=== PATIENT | male | born 1950 | race American Indian/Alaskan Native ===

== ENCOUNTER 2020-01-02 06:03 | Outpatient (REF) | payer MEDICARE, OTHER, SELFPAY ==
[2020-01-02 06:51] LABS: MANUAL DIFF FLAG NO
[2020-01-02 06:52] LABS: Basophils Absolute Auto 0.1 X10*3/uL (0.0-0.2); Basophils Percent Auto 0.7 % (0-2); Eosinophils Absolute Auto 0.3 X10*3/uL (0.0-0.4); Eosinophils Percent Auto 2.9 % (0-4); Hematocrit 46.6 % (42-52); Hemoglobin 15.4 g/dl (14.0-18.0); Imm Gran Abs Auto 0.04 X10*3/uL (0.00-0.03); Imm Gran Pct Auto 0.4 % (0.0-0.4); Lymphocytes Absolute Auto 3.1 X10*3/uL (1.2-4.9); Lymphocytes Percent Auto 28.7 % (20-40); Mean Corpuscular Hemoglobin 30.1 pg (27.0-33.0); Mean Corpuscular Volume 91.2 fL (80-98); Mean Platelet Volume 9.9 fL (9.4-12.4); Monocytes Percent Auto 9.1 % (2-11); Neutrophils Absolute Auto 6.2 X10*3/uL (2.0-8.3); Neutrophils Percent Auto 58.2 % (45-73); Platelet Count 331 X10*3/uL (160-400); Red Blood Count 5.11 X10*6/uL (4.60-5.80); White Blood Count 10.6 X10*3/uL (4.8-10.8)
[2020-01-02 06:59] LABS: Estimated Average Glucose 226 mg/dL; Hemoglobin A1c % 9.5 %
[2020-01-02 07:20] LABS: Alanine Aminotransferase 22 U/L (0-40); Albumin Level 4.6 g/dL (3.5-5.0); Alkaline Phosphatase 97 U/L (39-117); Anion Gap 15 (12-20); Aspartate Amino Transferase 20 U/L (5-37); Bilirubin Total 1.6 mg/dL (0.0-1.0); Blood Urea Nitrogen 13 mg/dL (9-16); Calcium 9.8 mg/dL (8.4-10.2); Carbon Dioxide 30 mmol/L (22-29); Chloride 99 mmol/L (96-108); Cholesterol 160 mg/dL; Estimated Glomerular Filt Rate 58; Glucose Fasting 312 mg/dL (60-99); HDL Cholesterol 32 mg/dL; LDL Cholesterol Calculated 66 mg/dl; Sodium 139 mmol/L (135-145); Total Protein 7.5 g/dL (6.5-8.0); Triglycerides 313 mg/dL
[2020-01-02 07:42] LABS: Prostate Specific Antigen 2.05 ng/mL (<0.05-4.0)
[2020-01-02 08:05] LABS: Glucose Urine UA 250 MG/DL (NEG); Leukocyte Esterase Urine NEG (NEG); Nitrite Urine NEG (NEG); Specific Gravity - Urine >= 1.030 (1.005-1.025); Urine Blood NEG (NEG); Urine Ketones NEG (NEG); Urine Protein NEG (NEG-TRACE)
[2020-01-02 08:11] LABS: Appearance Urine CLEAR; Color Urine YELLOW
[2020-01-02 08:26] LABS: Creatinine Urine 235.72 mg/dL; Microalbum/Creatinine Ratio Ur 21.2 ug/mg cr
== END 2020-01-02 06:04 | disposition home or self-care (01) ==
LOC: HO.LAB 06:03
PROVIDERS: Visit Provider Internal Medicine
DX: I25.10 Atherosclerotic heart disease of native coronary artery without angina pectoris (principal); E78.00 Pure hypercholesterolemia, unspecified; I10 Essential (primary) hypertension; E11.9 Type 2 diabetes mellitus without complications; N40.0 Benign prostatic hyperplasia without lower urinary tract symptoms
CPT/HCPCS: 36415; 80053; 80061; 81003; 82043; 83036; 84153; 85025

== ENCOUNTER → 2020-01-22 15:40 | Outpatient (BNVA) | payer MEDICARE, OTHER, SELFPAY | PROVIDERS: PCP Internal Medicine; Visit Provider Surgery Vascular Surgery | DX: I73.9 Peripheral vascular disease, unspecified (principal); Z98.62 Peripheral vascular angioplasty status | CPT/HCPCS: 99212 ==

== ENCOUNTER 2020-01-22 16:09 | Emergency (ER) | payer MEDICARE, OTHER, SELFPAY ==
[2020-01-22 16:37] VITALS: BP 183/87; PULSE 91; RESP 28; TEMP 37; O2SAT 93; BMI 31.7
--- NOTE | 2020-01-22 17:03 | ECG_ITS ---
Test Reason : SOB Blood Pressure : / mmHG Vent. Rate : 087 BPM Atrial Rate : 087 BPM P-R Int : 142 ms QRS Dur : 094 ms QT Int : 388 ms P-R-T Axes : 078 069 064 degrees QTc Int : 466 ms Normal sinus rhythm Incomplete right bundle branch block Borderline ECG When compared with ECG of 19-FEB-2006 07:55, Heart rate has increased Referred By: Lee Cedillo Electronically Signed By:NATO CASTILLO MD
--- NOTE | 2020-01-22 17:03 | CT_ITS ---
EXAMINATION: CT ANGIOGRAM OF THE CHEST WITH AND WITHOUT CONTRAST (CT PULMONARY ANGIOGRAM FOR PE) CLINICAL INFORMATION: Shortness of breath COMPARISON: CT scan of the chest 10/11/2019, 09/30/2018 TECHNIQUE: Prior to contrast administration, noncontrast localization images were obtained. Subsequently, multidetector volumetric imaging was performed from the thoracic inlet to below the diaphragms following the administration of 80 mL Omnipaque 350 intravenous contrast. No contrast reaction reported Sagittal, coronal, and MIP oblique sagittal reformatted images were obtained on the CT workstation, uploaded to PACS, and reviewed. This CT examination was performed using dose optimization techniques as appropriate, variously including the following: *Automated exposure control *Adjustment of mA and/or kV according to patient size (this includes techniques or standardized protocols for targeted exams where dose is matched to indication/reason for exam; i.e. extremities or head) *Use of iterative reconstruction technique Total exam dose-length product 420 mGy-cm FINDINGS: QUALITY OF STUDY/CONTRAST BOLUS: Satisfactory. PULMONARY ARTERIES: No central or segmental pulmonary emboli. THORACIC AORTA: No aneurysm or dissection. LUNG: Mild bronchial wall thickening. There is some focal tree-in-bud/groundglass nodularity within the central left upper lobe, suggesting a focal infectious/inflammatory process. No dense consolidation. There are a few scattered micronodules in both lungs which have not significant changed. A 6 mm nodule along the right minor fissure is unchanged, this may represent an intrafissural lymph node. PLEURA: No pleural effusion or pneumothorax. MEDIASTINUM: Normal heart size. No pericardial effusion. Coronary artery calcifications. There are scattered subcentimeter mediastinal lymph nodes. No evidence of septal bowing or right heart strain. CHEST WALL/AXILLA: No axillary or internal mammary lymphadenopathy. OSSEOUS STRUCTURES: No acute or suspicious osseous abnormality. UPPER ABDOMEN: There is a 1.3 cm right adrenal nodule. This is unchanged from the CT scan from 09/30/2018, at that time the noncontrast enhanced exam showed 0 Hounsfield units, suggesting a adrenal adenoma. Small hiatal hernia.. No reflux of contrast into the hepatic veins to suggest elevated right heart pressures. CT/CT angio chest PE protocol IMPRESSION: 1. No pulmonary embolus. 2. Mild bronchial wall thickening suggest underlying small airways disease. Some focal tree-in-bud nodularity in the left upper lobe suggest infectious/inflammatory process. No dense consolidation. 3. Scattered micronodules in the lungs are stable. 4. Coronary artery gives locations. 5. Small hiatal hernia. 6. A 1.3 cm right adrenal nodule most likely representing adrenal adenoma based on CT scan from 09/30/2018. VTE: negative
--- NOTE | 2020-01-22 17:03 | ED_ITS ---
HPI - SOB/Dyspnea General Chief Complaint: Dyspnea Stated Complaint: Difficulty breathing Time Seen by Provider: 01/22/20 17:02 Source: patient Mode of arrival: ambulatory Limitations: no limitations History of Present Illness HPI Narrative: patient has history of bronchitis in the past ex-smoker with significant peripheral vascular disease complaining of shortness of breath and wheezing for last 2 days no fever no chills no other family member sick at home MD elicited complaint: shortness of breath Pertinent past history: COPD Severity: moderate Exacerbating factors: coughing Related Data Home Medications Medication Instructions Recorded Confirmed acetaminophen 650 mg 650 mg PO Q8H 01/22/20 tablet,extended release albuterol sulfate 90 mcg/actuation 2 puff INHALATION 6XD 01/22/20 aerosol inhaler aspirin 81 mg tablet,delayed 81 mg PO DAILY 01/22/20 release carvedilol 6.25 mg tablet 6.25 mg PO BID 01/22/20 docusate sodium 100 mg capsule 100 mg PO DAILY 01/22/20 ferrous sulfate 325 mg (65 mg 325 mg PO DAILY 01/22/20 iron) tablet fluticasone propionate 110 1 puff INHALATION BID 01/22/20 mcg/actuation HFA aerosol inhaler gabapentin 300 mg capsule 300 mg PO BID 01/22/20 glipizide 5 mg tablet 5 mg PO DAILY 01/22/20 lisinopril 5 mg tablet 5 mg PO DAILY 01/22/20 metformin 500 mg tablet 500 mg PO DAILY 01/22/20 simvastatin 20 mg/5 mL (4 mg/mL) 20 mg PO DAILY 01/22/20 oral suspension Previous Rx's Medication Instructions Recorded albuterol sulfate 2 puff INHALATION QID PRN #18 g 01/22/20 azithromycin [Zithromax] 500 mg PO DAILY 3 Days #3 tab 01/22/20 doxycycline hyclate 100 mg PO BID #20 cap 01/22/20 prednisone 40 mg PO DAILY #10 tab 01/22/20 Allergies Allergy/AdvReac Type Severity Reaction Status Date / Time morphine [MORPHINE] AdvReac Intermediate VOMITING Verified 01/22/20 16:37 Review of Systems Review of Systems: REVIEW OF SYSTEMS: Pertinent positives and negatives are stated above in the history. GEN: no fevers, chills, fatigue HEENT: no nasal congestion, sore throat, ear pain NEURO: no headache, dizziness, focal weakness PULM: per HPI CV: no chest pain, palpitations, LE edema ABD: no abdominal pain, nausea, vomiting, diarrhea : no dysuria, urgency, frequency SKIN: no rash ROS otherwise negative x 10 PMFSH Past Medical History Medical History DM2 (diabetes mellitus, type 2) HTN (hypertension) Hyperlipidemia PAD (peripheral artery disease) Tubular adenoma of colon Surgical History History of esophagogastroduodenoscopy (EGD) History of femoral angiogram Hx of cholecystectomy Hx of colonoscopy Hx of tonsillectomy Hx of vasectomy Family History Family History Father No problems noted. Mother No problems noted. Social History Social History Smoking Status: Former smoker Smoked in Last 30 Days: No Use of substances other than those prescribed or required for medical reasons: No Advance Directives: No Advance Directives Information Provided: Yes Physical Exam Vital Signs: Vital Signs: Last Vital Signs Temp 98.0 F 01/22/20 19:24 Pulse 85 01/22/20 19:24 Resp 16 01/22/20 19:24 BP 151/71 H 01/22/20 19:24 Pulse Ox 96 01/22/20 19:24 Body Mass Index 31.7 Const: General: cooperative, healthy appearing, comfortable, no acute distress and well developed Nutritional Appearance: average body habitus Orientation/consciousness: oriented to person, oriented to place and oriented to time Limitations: no limitations HENMT: Head: Yes normal to inspection Ears: hearing grossly normal bilaterally General nose exam: Normal external nose present Eyes: General: appearance normal, both eyes and all related structures Resp: Effort & Inspection: normal respiratory effort, audible wheezes and Actively coughing Auscultation: no crackles, no rales, rhonchi, wheezes and lung sounds not diminished Percussion: percussion normal Cardio: Jugular venous distension: no JVD Palpation: normal PMI Rate: regular rate Rhythm: regular rhythm Heart sounds: S1 normal heart sound present, S2 normal heart sound present and no murmurs GI: Inspection: Yes normal to inspection Palpation (GI): Soft to palpation, Firmness to palpation present (GI), nontender and no guarding : General: Yes no CVA tenderness Back/Spine/Pelvis: Back: no CVA tenderness Thoracic/Lumbar Spine: thoracic and lumbar spine normal to inspection Neuro: General: oriented to person, oriented to place and oriented to time MDM - SOB/Dyspnea MDM Narrative Medical decision making narrative: patient history of ex smoker for 56 years with recurrent bronchitis came with shortness of breath and cough saturating 93% at room air feels better after nebulizing treatments saturating 98% room air at this time CT chest was done which was negative for PE or any infiltrate Differential Diagnosis Differential diagnosis: Likely acute exacerbation of chronic obstructive airways disease, congestive heart failure, pneumonia, pulmonary embolism and pleural effusion Medical Records Attestation: I reviewed the patient's medical records. Lab Data Attestation: I reviewed the patient's lab results. Result diagrams: 01/22/20 17:28 01/22/20 17:28 Labs: Lab Results 01/22/20 01/22/20 01/22/20 Range/Units 17:28 17:28 17:28 WBC 8.5 (4.8-10.8) X10*3/uL RBC 4.66 (4.60-5.80) X10*6/uL Hgb 14.0 (14.0-18.0) g/dl Hct 42.1 (42-52) % MCV 90.3 (80-98) fL MCH 30.0 (27.0-33.0) pg MCHC 33.3 (31.0-36.0) g/dl RDW 13.2 (11.0-16.0) % Plt Count 264 (160-400) X10*3/uL MPV 9.7 (9.4-12.4) fL Immature Gran % (Auto) 0.2 (0.0-0.4) % Neut % (Auto) 51.6 (45-73) % Lymph % (Auto) 31.8 (20-40) % [place] % (Auto) 10.6 (2-11) % Eos % (Auto) 5.1 H (0-4) % Baso % (Auto) 0.7 (0-2) % Lymph # (Auto) 2.7 (1.2-4.9) X10*3/uL [place] # (Auto) 0.9 (0.1-1.2) X10*3/uL Eos # (Auto) 0.4 (0.0-0.4) X10*3/uL Baso # (Auto) 0.1 (0.0-0.2) X10*3/uL Abs Immat Gran (auto) 0.02 (0.00-0.03) X10*3/uL Absolute Neuts (auto) 4.4 (2.0-8.3) X10*3/uL Absolute Nucleated RBC 0.000 (0.0-0.012) X10*3/uL Nucleated RBC % (auto) 0.0 (0.0-0.2) /100WBC PT (10.8-13.0) SEC INR (0.9-1.1) APTT (24.1-38.0) SEC Sodium 137 (135-145) mmol/L Potassium 4.9 (3.3-5.1) mmol/l Chloride 98 (96-108) mmol/L Carbon Dioxide 30 H (22-29) mmol/L Anion Gap 14 (12-20) BUN 9 (9-16) mg/dL Creatinine 0.98 (0.5-1.4) mg/dL Estim Creat Clear Calc 84.4 Estimated GFR > 60 Random Glucose 237 H (60-115) mg/dL Calcium 9.3 (8.4-10.2) mg/dL Troponin I High Sens < 3.5 (<3.5-35.0) ng/L B-Natriuretic Peptide 26 (<100) pg/mL Coronavirus (PCR) (Negative) Influenza Type A (PCR) (Negative) Influenza Type B (PCR) (Negative) RSV RNA Qual (PCR) (Negative) 01/22/20 01/22/20 Range/Units 17:28 18:54 WBC (4.8-10.8) X10*3/uL RBC (4.60-5.80) X10*6/uL Hgb (14.0-18.0) g/dl Hct (42-52) % MCV (80-98) fL MCH (27.0-33.0) pg MCHC (31.0-36.0) g/dl RDW (11.0-16.0) % Plt Count (160-400) X10*3/uL MPV (9.4-12.4) fL Immature Gran % (Auto) (0.0-0.4) % Neut % (Auto) (45-73) % Lymph % (Auto) (20-40) % [place] % (Auto) (2-11) % Eos % (Auto) (0-4) % Baso % (Auto) (0-2) % Lymph # (Auto) (1.2-4.9) X10*3/uL [place] # (Auto) (0.1-1.2) X10*3/uL Eos # (Auto) (0.0-0.4) X10*3/uL Baso # (Auto) (0.0-0.2) X10*3/uL Abs Immat Gran (auto) (0.00-0.03) X10*3/uL Absolute Neuts (auto) (2.0-8.3) X10*3/uL Absolute Nucleated RBC (0.0-0.012) X10*3/uL Nucleated RBC % (auto) (0.0-0.2) /100WBC PT 12.0 (10.8-13.0) SEC INR 1.0 (0.9-1.1) APTT 33.2 (24.1-38.0) SEC Sodium (135-145) mmol/L Potassium (3.3-5.1) mmol/l Chloride (96-108) mmol/L Carbon Dioxide (22-29) mmol/L Anion Gap (12-20) BUN (9-16) mg/dL Creatinine (0.5-1.4) mg/dL Estim Creat Clear Calc Estimated GFR Random Glucose (60-115) mg/dL Calcium (8.4-10.2) mg/dL Troponin I High Sens (<3.5-35.0) ng/L B-Natriuretic Peptide (<100) pg/mL Coronavirus (PCR) NEGATIVE (Negative) Influenza Type A (PCR) NEGATIVE (Negative) Influenza Type B (PCR) NEGATIVE (Negative) RSV RNA Qual (PCR) NEGATIVE (Negative) ECG Data Attestation: I personally reviewed and interpreted this ECG as follows: Interpretation: normal sinus rhythm heart rate 87 incomplete right bundle- branch block no acute ST T wave changes normal axis. Impression no acute ischemia Discharge Plan Discharge Clinical Impression: Bronchitis Patient Disposition: Home, Self-Care Instructions: Acute Bronchitis (ED) Additional Instructions: take medication as prescribed. Use albuterol inhaler 2 puffs every 6 hours as needed for shortness of breath. Follow with PCP / come to ED if not better Prescriptions: New azithromycin [Zithromax] 500 mg tablet 500 mg PO DAILY 3 Days Qty: 3 RF: 0 doxycycline hyclate 100 mg capsule 100 mg PO BID Qty: 20 RF: 0 albuterol sulfate 90 mcg/actuation HFA aerosol inhaler 2 puff inhalation QID PRN (Reason: shortness of breath or wheezing) Qty: 18 RF: 0 prednisone 20 mg tablet 40 mg PO DAILY Qty: 10 RF: 0 Interventions: ED Discharge Assessment Last Done: 01/22/20 21:08 Discharge Date/Time: 01/22/20 21:09
[2020-01-22 17:33] LABS: MANUAL DIFF FLAG NO
[2020-01-22 17:36] LABS: Basophils Absolute Auto 0.1 X10*3/uL (0.0-0.2); Basophils Percent Auto 0.7 % (0-2); Eosinophils Absolute Auto 0.4 X10*3/uL (0.0-0.4); Eosinophils Percent Auto 5.1 % (0-4); Hematocrit 42.1 % (42-52); Imm Gran Abs Auto 0.02 X10*3/uL (0.00-0.03); Imm Gran Pct Auto 0.2 % (0.0-0.4); Lymphocytes Absolute Auto 2.7 X10*3/uL (1.2-4.9); Lymphocytes Percent Auto 31.8 % (20-40); Mean Corpuscular HGB Conc 33.3 g/dl (31.0-36.0); Mean Corpuscular Volume 90.3 fL (80-98); Mean Platelet Volume 9.7 fL (9.4-12.4); Monocytes Absolute Auto 0.9 X10*3/uL (0.1-1.2); Monocytes Percent Auto 10.6 % (2-11); Neutrophils Absolute Auto 4.4 X10*3/uL (2.0-8.3); Neutrophils Percent Auto 51.6 % (45-73); Platelet Count 264 X10*3/uL (160-400); Red Blood Count 4.66 X10*6/uL (4.60-5.80); Red Cell Distribution Width 13.2 % (11.0-16.0); White Blood Count 8.5 X10*3/uL (4.8-10.8)
[2020-01-22 17:43] LABS: Partial Thromboplastin Time 33.2 SEC (24.1-38.0)
[2020-01-22] MEDS: Albuterol Sulfate (0.083%) 2.5 MG/3 ML VIAL.NEB 5 MG INHALE ×2 (17:56→17:57)
[2020-01-22] MEDS: Albuterol/Iprat 2.5/0.5MG 3 ML AMPUL.NEB INHALE (17:56)
[2020-01-22 18:01] VITALS: PULSE 87; O2SAT 99
[2020-01-22 18:09] LABS: Anion Gap 14 (12-20); Blood Urea Nitrogen 9 mg/dL (9-16); Calcium 9.3 mg/dL (8.4-10.2); Carbon Dioxide 30 mmol/L (22-29); Chloride 98 mmol/L (96-108); Creatinine Clr Calc Pharmacy 84.4; Estimated Glomerular Filt Rate > 60; Glucose Random 237 mg/dL (60-115); Potassium 4.9 mmol/l (3.3-5.1); Sodium 137 mmol/L (135-145)
[2020-01-22 18:10] VITALS: BP 141/62; PULSE 85; RESP 20; O2SAT 98
[2020-01-22 18:15] LABS: B Type Natriuretic Peptide 26 pg/mL (<100); Troponin-I High Sensitivity < 3.5 ng/L (<3.5-35.0)
[2020-01-22] MEDS: iohexoL 350 MG/ML 100 ML INFUS..BTL IV (18:35)
[2020-01-22 19:24] VITALS: BP 151/71; PULSE 85; RESP 16; TEMP 36.7; O2SAT 96
[2020-01-22 19:47] LABS: Influenza A PCR NEGATIVE (Negative); Influenza B PCR NEGATIVE (Negative); Resp Syncy Virus RNA Qual PCR NEGATIVE (Negative); SARS COV2 PCR INHOUSE NEGATIVE (Negative)
[2020-01-22] MEDS: Azithromycin 500 MG TABLET PO (19:56)
[2020-01-22] MEDS: methylPREDNISolone Sod Succ/PF 125 MG/2 ML VIAL IVPUSH (19:56)
== END 2020-01-22 21:09 | disposition home or self-care (01) ==
PROVIDERS: Emergency Provider Internal Medicine; PCP Internal Medicine
DX: J20.9 Acute bronchitis, unspecified (principal); E11.9 Type 2 diabetes mellitus without complications; I10 Essential (primary) hypertension; Z87.891 Personal history of nicotine dependence; Z79.899 Other long term (current) drug therapy; Z20.828 Contact with and (suspected) exposure to other viral communicable diseases
CPT/HCPCS: 0241U; 36415; 71275; 80048; 83880; 84484; 85025; 85610; 85730; 93005; 94640; 96374; 99284; J2930; Q9967

== ENCOUNTER 2020-01-29 08:08 | Outpatient (REF) | payer MEDICARE, OTHER, SELFPAY ==
--- NOTE | 2020-01-29 | US_ITS ---
EXAMINATION: COLOR-FLOW DUPLEX IMAGING OF THE BILATERAL LOWER EXTREMITY ARTERIAL SYSTEM. VELOCITY MEASUREMENTS THROUGHOUT THE FEMORAL ARTERIES WITH ANKLE-BRACHIAL PERIPHERAL ARTERIAL TESTING. CLINICAL INFORMATION: This is a 69-year-old male with history of a right femoral-popliteal bypass. The patient status post left superficial femoral artery stent. Peripheral arterial disease. RIGHT FEMORAL RUNOFF VELOCITIES: The right common femoral artery measures 160 cm/s and triphasic. The right profunda femoral artery is 155 cm/s and is triphasic. Right proximal superficial femoral artery is occluded. Mid superficial femoral artery is 90 cm/s and monophasic. Distal right superficial femoral artery measures 59 cm/s and is monophasic. Right popliteal velocity measures 87 cm/s and is monophasic. The posterior tibial artery velocity measures 15 cm/s and was monophasic. The bypass graft velocities are as follows: Proximal to the anastomosis: 44 cm/s and monophasic. Proximal bypass graft: Occluded Mid bypass graft: Occluded Distal bypass graft: Occluded Distal anastomosis: Occluded Outflow vessel: 87 cm/s and monophasic. The right ankle-brachial index is 0.54. The right posterior tibial pressure is 95 mmHg. The right dorsalis pedis pressure is 71 mmHg. LEFT FEMORAL RUNOFF VELOCITIES: The left common femoral artery measures 105 cm/s and biphasic. The left profunda femoral artery is 207 cm/s and is biphasic. Left proximal superficial femoral artery measures 59 cm/s and biphasic. Mid superficial femoral artery is occluded. The stent appears occluded. Distal left superficial femoral artery measures 58 cm/s and is monophasic. Left popliteal velocity measures 17 cm/s and is monophasic. The posterior tibial artery velocity measures 17 cm/s and was monophasic. The stent velocities are as follows: [place] artery proximal to the stent: 59 cm/s. Proximal stent: Occluded Mid stent: Occluded Distal stent: 24 cm/s and monophasic. [place] artery distal to the stent: 58 cm/s and monophasic. The left ankle-brachial index is 0.60. The left posterior pressures 10 5 mmHg. The left dorsalis pedis pressure is 97 mmHg. US/US arterial duplex LE BI IMPRESSION: 1. Abnormal bilateral peripheral arterial testing at rest. 2. There is occlusion of the right femoral-popliteal bypass graft. There is occlusion of the [place] right superficial femoral artery. 3. There is occlusion of the left superficial femoral artery stent.
--- NOTE | 2020-01-29 | US_ITS ---
EXAMINATION: COLOR-FLOW DUPLEX IMAGING OF THE BILATERAL LOWER EXTREMITY ARTERIAL SYSTEM. VELOCITY MEASUREMENTS THROUGHOUT THE FEMORAL ARTERIES WITH ANKLE-BRACHIAL PERIPHERAL ARTERIAL TESTING. CLINICAL INFORMATION: This is a 69-year-old male with history of a right femoral-popliteal bypass. The patient status post left superficial femoral artery stent. Peripheral arterial disease. RIGHT FEMORAL RUNOFF VELOCITIES: The right common femoral artery measures 160 cm/s and triphasic. The right profunda femoral artery is 155 cm/s and is triphasic. Right proximal superficial femoral artery is occluded. Mid superficial femoral artery is 90 cm/s and monophasic. Distal right superficial femoral artery measures 59 cm/s and is monophasic. Right popliteal velocity measures 87 cm/s and is monophasic. The posterior tibial artery velocity measures 15 cm/s and was monophasic. The bypass graft velocities are as follows: Proximal to the anastomosis: 44 cm/s and monophasic. Proximal bypass graft: Occluded Mid bypass graft: Occluded Distal bypass graft: Occluded Distal anastomosis: Occluded Outflow vessel: 87 cm/s and monophasic. The right ankle-brachial index is 0.54. The right posterior tibial pressure is 95 mmHg. The right dorsalis pedis pressure is 71 mmHg. LEFT FEMORAL RUNOFF VELOCITIES: The left common femoral artery measures 105 cm/s and biphasic. The left profunda femoral artery is 207 cm/s and is biphasic. Left proximal superficial femoral artery measures 59 cm/s and biphasic. Mid superficial femoral artery is occluded. The stent appears occluded. Distal left superficial femoral artery measures 58 cm/s and is monophasic. Left popliteal velocity measures 17 cm/s and is monophasic. The posterior tibial artery velocity measures 17 cm/s and was monophasic. The stent velocities are as follows: [place] artery proximal to the stent: 59 cm/s. Proximal stent: Occluded Mid stent: Occluded Distal stent: 24 cm/s and monophasic. [place] artery distal to the stent: 58 cm/s and monophasic. The left ankle-brachial index is 0.60. The left posterior pressures 10 5 mmHg. The left dorsalis pedis pressure is 97 mmHg. US/US KYLEIGH complete IMPRESSION: 1. Abnormal bilateral peripheral arterial testing at rest. 2. There is occlusion of the right femoral-popliteal bypass graft. There is occlusion of the [place] right superficial femoral artery. 3. There is occlusion of the left superficial femoral artery stent.
== END 2020-01-29 08:09 | disposition home or self-care (01) ==
LOC: HO.US 08:08
PROVIDERS: Visit Provider Surgery Vascular Surgery
DX: I73.9 Peripheral vascular disease, unspecified (principal)
CPT/HCPCS: 93923; 93925

== ENCOUNTER 2020-01-29 14:52 | Inpatient (IN) | payer MEDICARE, OTHER, SELFPAY ==
[2020-01-29 15:10] VITALS: BP 220/107; PULSE 102; RESP 28; TEMP 37.2; O2SAT 86; BMI 31.5
--- NOTE | 2020-01-29 15:11 | XR_ITS ---
EXAMINATION: XR CHEST CLINICAL INFORMATION: SOB. COMPARISON: CT chest screening 09/30/2018 TECHNIQUE: Frontal view of the chest was obtained. FINDINGS: No significant abnormality is noted involving the heart, lungs, mediastinum, bony thorax or soft tissues. XR/XR chest 1V IMPRESSION: Unremarkable chest examination.
--- NOTE | 2020-01-29 15:11 | ECG_ITS ---
Test Reason : DYSPNEA Blood Pressure : / mmHG Vent. Rate : 100 BPM Atrial Rate : 100 BPM P-R Int : 134 ms QRS Dur : 078 ms QT Int : 356 ms P-R-T Axes : 071 044 040 degrees QTc Int : 459 ms Normal sinus rhythm Nonspecific ST abnormality Abnormal ECG When compared with ECG of 22-JAN-2020 17:45, No significant change was found Referred By: Lee Cedillo Electronically Signed By:MARIBEL GASPAR MD
[2020-01-29] MEDS: Albuterol Sulfate 90 MCG 8 GM INHALER 4 PUFF INHALE (15:15)
[2020-01-29] MEDS: methylPREDNISolone Sod Succ/PF 125 MG/2 ML VIAL IVPUSH (15:23)
[2020-01-29 15:29] VITALS: BP 179/84; RESP 28; O2SAT 97
[2020-01-29 15:30] VITALS: PULSE 98; O2SAT 99
[2020-01-29] MEDS: Albuterol/Iprat 2.5/0.5MG 3 ML AMPUL.NEB INHALE (15:30)
[2020-01-29] MEDS: Albuterol Sulfate (0.083%) 2.5 MG/3 ML VIAL.NEB 5 MG INHALE (15:30)
[2020-01-29 16:14] LABS: Hematocrit 47.5 % (42-52); Hemoglobin 15.7 g/dl (14.0-18.0); Mean Corpuscular HGB Conc 33.1 g/dl (31.0-36.0); Mean Corpuscular Hemoglobin 30.1 pg (27.0-33.0); Mean Corpuscular Volume 91.2 fL (80-98); Mean Platelet Volume 10.2 fL (9.4-12.4); Platelet Count 412 X10*3/uL (160-400); Red Blood Count 5.21 X10*6/uL (4.60-5.80); Red Cell Distribution Width 13.2 % (11.0-16.0); White Blood Count 13.4 X10*3/uL (4.8-10.8)
--- NOTE | 2020-01-29 16:15 | ED_ITS ---
HPI - SOB/Dyspnea General Chief Complaint: Dyspnea Stated Complaint: sob,wheezing Time Seen by Provider: 01/29/20 15:10 Source: patient Mode of arrival: ambulatory Limitations: no limitations History of Present Illness HPI Narrative: patient history of COPD chronic bronchitis was seen here on 01/21 with cough for last few days and shortness of breath chest x-ray was negative COVID-19 was negative patient was prescribed Zithromax and doxycycline and prednisone after taking does patient was started feeling better for last 2 days patient started feeling increased shortness of breath wheezing respiratory rate was 44 on arrival with saturation of 86% at room air patient denies any fever no nausea no vomiting no malaise MD elicited complaint: shortness of breath and cough Pertinent past history: COPD Onset (ago): day(s) (10) Context: recent illness Severity: moderate Exacerbating factors: coughing Relieving factors: oxygen and bronchodilators Known history of: COPD and asthma Treatment prior to arrival: bronchodilator Related Data Home Medications Medication Instructions Recorded Confirmed acetaminophen 650 mg 650 mg PO Q8H 01/22/20 tablet,extended release albuterol sulfate 90 mcg/actuation 2 puff INHALATION 6XD 01/22/20 aerosol inhaler aspirin 81 mg tablet,delayed 81 mg PO DAILY 01/22/20 release carvedilol 6.25 mg tablet 6.25 mg PO BID 01/22/20 docusate sodium 100 mg capsule 100 mg PO DAILY 01/22/20 ferrous sulfate 325 mg (65 mg 325 mg PO DAILY 01/22/20 iron) tablet fluticasone propionate 110 1 puff INHALATION BID 01/22/20 mcg/actuation HFA aerosol inhaler gabapentin 300 mg capsule 300 mg PO BID 01/22/20 glipizide 5 mg tablet 5 mg PO DAILY 01/22/20 lisinopril 5 mg tablet 5 mg PO DAILY 01/22/20 metformin 500 mg tablet 500 mg PO DAILY 01/22/20 simvastatin 20 mg/5 mL (4 mg/mL) 20 mg PO DAILY 01/22/20 oral suspension Previous Rx's Medication Instructions Recorded albuterol sulfate 2 puff INHALATION QID PRN #18 g 01/22/20 azithromycin [Zithromax] 500 mg PO DAILY 3 Days #3 tab 01/22/20 doxycycline hyclate 100 mg PO BID #20 cap 01/22/20 prednisone 40 mg PO DAILY #10 tab 01/22/20 Allergies Allergy/AdvReac Type Severity Reaction Status Date / Time morphine [MORPHINE] AdvReac Intermediate VOMITING Verified 01/29/20 15:08 Review of Systems Review of Systems: REVIEW OF SYSTEMS: Pertinent positives and negatives are stated above in the history. GEN: no fevers, chills, fatigue HEENT: no nasal congestion, sore throat, ear pain NEURO: no headache, dizziness, focal weakness PULM: shortness of breath plus increased cough no phlegm CV: no chest pain, palpitations, LE edema ABD: no abdominal pain, nausea, vomiting, diarrhea : no dysuria, urgency, frequency SKIN: no rash ROS otherwise negative x 10 PMFSH Past Medical History Medical History DM2 (diabetes mellitus, type 2) HTN (hypertension) Hyperlipidemia PAD (peripheral artery disease) Tubular adenoma of colon Surgical History History of esophagogastroduodenoscopy (EGD) History of femoral angiogram Hx of cholecystectomy Hx of colonoscopy Hx of tonsillectomy Hx of vasectomy Family History Family History Father No problems noted. Mother No problems noted. Social History Social History Smoking Status: Former smoker Advance Directives: No Advance Directives Information Provided: Yes Physical Exam Vital Signs: Vital Signs: Last Vital Signs Temp 98.6 F 01/29/20 16:26 Pulse 95 01/29/20 16:26 Resp 24 H 01/29/20 16:26 BP 165/92 H 01/29/20 16:26 Pulse Ox 95 01/29/20 16:26 Body Mass Index 31.5 Const: General: well developed, alert, awake, acute distress moderate and ill appearing Orientation/consciousness: oriented to person, oriented to place, oriented to time and patient oriented x3 HENMT: Head: Yes normal to inspection Ears: hearing grossly normal bilaterally General nose exam: Normal external nose present Mouth: moist mucous membranes Eyes: General: appearance normal, both eyes and all related structures Co njunctivae: conjunctivae normal Sclerae: sclerae normal Neck: Neck: Yes normal visual inspection Chest: Chest palpation & inspection: normal inspection of the chest Resp: Effort & Inspection: not able to speak in complete sentences, audible wheezes, Actively coughing, uses accessory muscles and prolonged expiratory phase Auscultation: no crackles, no rales, rhonchi throughout and wheezes expiratory wheezes and throughout Cardio: Jugular venous distension: no JVD Rate: tachycardic Rhythm: regular rhythm Heart sounds: S1 normal heart sound present, S2 normal heart sound present and no murmurs GI: Inspection: Yes normal to inspection Palpation (GI): Soft to palpation, nontender and No hepatosplenomegaly present : General: Yes no CVA tenderness Back/Spine/Pelvis: Back: no CVA tenderness Thoracic/Lumbar Spine: thoracic and lumbar spine normal to inspection Skin: General skin exam: no rashes or lesions noted Neuro: General: oriented to person, oriented to place, oriented to time and patient oriented x3 Extrem: General: Yes normal to inspection, Yes no calf tenderness and No pedal edema MDM - SOB/Dyspnea MDM Narrative Medical decision making narrative: patient with COPD chronic bronchitis came for increased shortness of breath last week COVID test was negative chest x-ray at this time is negative for any acute infiltrate. Patient was saturating 86% on arrival at room air is after nebulizing treatment feeling better patient cardiac enzymes and BNP were normal last week will admit for admission for hypoxia with COPD Differential Diagnosis Differential diagnosis: Likely acute exacerbation of chronic obstructive airways disease and congestive heart failure Medical Records Attestation: I reviewed the patient's medical records. Lab Data Result diagrams: 01/29/20 15:27 01/29/20 15:27 Labs: Lab Results 01/29/20 01/29/20 Range/Units 15:27 15:27 WBC 13.4 H (4.8-10.8) X10*3/uL RBC 5.21 (4.60-5.80) X10*6/uL Hgb 15.7 (14.0-18.0) g/dl Hct 47.5 (42-52) % MCV 91.2 (80-98) fL MCH 30.1 (27.0-33.0) pg MCHC 33.1 (31.0-36.0) g/dl RDW 13.2 (11.0-16.0) % Plt Count 412 H D (160-400) X10*3/uL MPV 10.2 (9.4-12.4) fL Immature Gran % (Auto) 0.7 H (0.0-0.4) % Neut % (Auto) 56.7 (45-73) % Lymph % (Auto) 29.3 (20-40) % [place] % (Auto) 8.3 (2-11) % Eos % (Auto) 4.5 H (0-4) % Baso % (Auto) 0.5 (0-2) % Lymph # (Auto) 3.9 (1.2-4.9) X10*3/uL [place] # (Auto) 1.1 (0.1-1.2) X10*3/uL Eos # (Auto) 0.6 H (0.0-0.4) X10*3/uL Baso # (Auto) 0.1 (0.0-0.2) X10*3/uL Abs Immat Gran (auto) 0.09 H (0.00-0.03) X10*3/uL Absolute Neuts (auto) 7.6 (2.0-8.3) X10*3/uL Absolute Nucleated RBC 0.000 (0.0-0.012) X10*3/uL Nucleated RBC % (auto) 0.0 (0.0-0.2) /100WBC Neutrophils % (Manual) Cancelled Band Neutrophils % Cancelled Lymphocytes % (Manual) Cancelled Atypical Lymphs % (Man) Cancelled Monocytes % (Manual) Cancelled Eosinophils % (Manual) Cancelled Basophils % (Manual) Cancelled Metamyelocytes % Cancelled Myelocytes % Cancelled Promyelocytes % Cancelled Blast Cells % (Manual) Cancelled Plasma Cell % (Manual) Cancelled Abs Neuts (Manual) Cancelled Lymphocytes # (Manual) Cancelled Atyp Lymphs # (Manual) Cancelled Monocytes # (Manual) Cancelled Eosinophils # (Manual) Cancelled Basophils # (Manual) Cancelled Metamyelocytes # Cancelled Myelocytes # Cancelled Promyelocytes # Cancelled Blast Cells # Cancelled Plasma Cell # (Manual) Cancelled Nucleated RBCs Cancelled Differential Comment Cancelled Hypersegmented Neuts Cancelled Smudge Cells Cancelled Toxic Granulation Cancelled Toxic Vacuolation Cancelled Dohle Bodies Cancelled [place] Rods Cancelled WBC Morphology Comment Cancelled Platelet Estimate Cancelled Large Platelets Cancelled Giant Platelets Cancelled Plt Morphology Comment Cancelled RBC Morphology Cancelled Polychromasia Cancelled Hypochromasia Cancelled Basophilic Stippling Cancelled Microcytosis Cancelled Macrocytosis Cancelled Spherocytes Cancelled Pappenheimer Bodies Cancelled Sickle Cells Cancelled Target Cells Cancelled Tear Drop Cells Cancelled Ovalocytes Cancelled Stomatocytes Cancelled Rivera-[place] Bodies Cancelled Rip Cells Cancelled Acanthocytes (Spur) Cancelled Rouleaux Cancelled Schistocytes Cancelled Sodium 139 (135-145) mmol/L Potassium 4.8 (3.3-5.1) mmol/l Chloride 101 (96-108) mmol/L Carbon Dioxide 28 (22-29) mmol/L Anion Gap 15 (12-20) BUN 13 (9-16) mg/dL Creatinine 1.08 (0.5-1.4) mg/dL Estim Creat Clear Calc 76.4 Estimated GFR > 60 Random Glucose 216 H (60-115) mg/dL Calcium 9.2 (8.4-10.2) mg/dL Discharge Plan Discharge Clinical Impression: Acute exacerbation of chronic obstructive airways disease Patient Disposition: Admitted As Inpatient
[2020-01-29 16:18] LABS: Anion Gap 15 (12-20); Blood Urea Nitrogen 13 mg/dL (9-16); Calcium 9.2 mg/dL (8.4-10.2); Carbon Dioxide 28 mmol/L (22-29); Chloride 101 mmol/L (96-108); Creatinine Clr Calc Pharmacy 76.4; Estimated Glomerular Filt Rate > 60; Glucose Random 216 mg/dL (60-115); Potassium 4.8 mmol/l (3.3-5.1); Sodium 139 mmol/L (135-145)
[2020-01-29 16:21] LABS: Imm Gran Pct Auto 0.7 % (0.0-0.4); Lymphocytes Percent Auto 29.3 % (20-40); Monocytes Percent Auto 8.3 % (2-11); Neutrophils Percent Auto 56.7 % (45-73)
[2020-01-29 16:22] LABS: Basophils Absolute Auto 0.1 X10*3/uL (0.0-0.2); Basophils Percent Auto 0.5 % (0-2); Eosinophils Absolute Auto 0.6 X10*3/uL (0.0-0.4); Eosinophils Percent Auto 4.5 % (0-4); Imm Gran Abs Auto 0.09 X10*3/uL (0.00-0.03); Lymphocytes Absolute Auto 3.9 X10*3/uL (1.2-4.9); MANUAL DIFF FLAG NO; Monocytes Absolute Auto 1.1 X10*3/uL (0.1-1.2); Neutrophils Absolute Auto 7.6 X10*3/uL (2.0-8.3)
[2020-01-29 16:26] VITALS: BP 165/92; PULSE 95; RESP 24; TEMP 37; O2SAT 95
[2020-01-29 16:48] LABS: Influenza A PCR NEGATIVE (Negative); Influenza B PCR NEGATIVE (Negative); Resp Syncy Virus RNA Qual PCR NEGATIVE (Negative); SARS COV2 PCR INHOUSE NEGATIVE (Negative)
[2020-01-29] MEDS: cefTRIAXone sodium 1 GM in 0.9 % Sodium Chloride 50 ML IV (16:54)
[2020-01-29 17:08] LABS: Lactic Acid 1.2 mmol/L (0.5-2.0)
--- NOTE | 2020-01-29 17:19 | PM.EVENT ---
Event Note Date of Service: 01/29/20 Event Note: Attending Admission Note Patient seen and examined. Case discussed with Lida Wilkins NP. Agree with her history and physical. A 69-yo M with known PAD s/p fem-pop bypass on the R and ? L SFA stent, COPD who presents to the hospital with complaints of SOB. He was seen in the ED about 1 week ago when he was diagnosed with acute bronchitis which was treated with prednisone + antibiotics. He reports some improvement at home, but this has worsened last few days. He denies any fevers or chills. Denies any sick contacts. In regards to his PAD history, he reports progressive bilateral claudication of several weeks to months duration. Was seen in the vascular about 1 week ago and had some surveillance arterial studies done which showed: IMPRESSION: 1. Abnormal bilateral peripheral arterial testing at rest. 2. There is occlusion of the right femoral-popliteal bypass graft. There is occlusion of the [place] right superficial femoral artery. 3. There is occlusion of the left superficial femoral artery stent. Exam Vitals - last documented Gen - NAD CVS - S1S2 Lungs - diminished Abd - soft, nt/nd Ext - good capillary refill bilateral LE; no obvious motor or sensory deficits. Decreases pulses A/P 69 yo M being admitted for copd exacerbation. Also noted arterial studies with multiple occlusions in the b/l LE. Will place patient on low dose heparin gtt and get vascular surgery input. COPD - steriods, updrafts, o2 as needed remainder per H&P
--- NOTE | 2020-01-29 17:55 | P.HPHOSP_ITS ---
History of Present Illness Date of Service: 01/29/20 <Lida Wilkins NP - Last Filed: 01/29/20 18:56> Chief Complaint: Leg pain <Lida Wilkins NP - Last Filed: 01/29/20 18:56> 69-year-old man presenting to the ER with complaints of worsening leg pain. patient has a history of femoral popliteal bypass graft with stenting. This was in March and he had some complications with fluid collection to the groin area several times that was drained. Since then he reported he was doing okay however over the last several months she has had increased pain to both of his lower extremity including cramping to his calves and pins and needles in both of his feet. He went to see his vascular surgeon last week and was scheduled to have ultrasounds done today. Is also noted to have wheezing and cough and was sent to the ER. In the ER he was treated for bronchitis. After his ultrasounds today he was told to the come to the ER to be evaluated. Ultrasound showed occlusion of the right femoral popliteal bypass graft, occlusion of the [place] right superficial femoral artery and occlusion of the left superficial femoral artery stent. Patient denies chest pain, shortness of breath, nausea, vomiting, diarrhea. He did report some wheezing over the last several days with history of COPD. Chest x-ray was unremarkable. His blood pressure was slightly elevated. Other labs were within acceptable limits including negative coronavirus PCR. He was started on IV heparin, given a dose of albuterol, Solu-Medrol, ceftriaxone. He will be admitted for further management and treatment of femoral popliteal bypass graft occlusion. <Lida Wilkins NP - Last Filed: 01/29/20 18:56> Review of Systems Review of Systems: Denies any recent fever chills or decrease in appetite respiratory See HPI cardiovascular is adjustment of any PND or edema, pain to both legs gastrointestinal denies any dysphagia abdominal pain nausea vomiting or diarrhea genitourinary denies any dysuria frequency or hematuria musculoskeletal denies any joint pain or swelling neuropsych denies any weakness or seizures all other systems reviewed are negative <Lida Wilkins NP - Last Filed: 01/29/20 18:56> [facility] Medical History: Medical History Bronchitis COPD (chronic obstructive pulmonary disease) DM2 (diabetes mellitus, type 2) Femoral-popliteal bypass graft occlusion HTN (hypertension) Hyperlipidemia PAD (peripheral artery disease) PVD (peripheral vascular disease) Tubular adenoma of colon <Lida Wilkins NP - Last Filed: 01/29/20 18:56> Family History: Family History Father No problems noted. Mother No problems noted. <Lida Wilkins NP - Last Filed: 01/29/20 18:56> Surgical History: Surgical History History of esophagogastroduodenoscopy (EGD) History of femoral angiogram Hx of cholecystectomy Hx of colonoscopy Hx of tonsillectomy Hx of vasectomy <Lida Wilkins NP - Last Filed: 01/29/20 18:56> Social History: Social History Household Members: Children Housing: House Smoking Status: Former smoker Years Smoked: 56 service: No Current occupational status: retired <Lida Wilkins NP - Last Filed: 01/29/20 18:56> Meds Allergies/Adverse reactions: Allergies Allergy/AdvReac Type Severity Reaction Status Date / Time morphine [MORPHINE] AdvReac Intermediate VOMITING Verified 02/05/20 10:51 <Lida Wilkins NP - Last Filed: 01/29/20 18:56> Home medications: Home Medications Medication Instructions Recorded Confirmed Type acetaminophen 650 mg 650 mg PO Q8H 01/22/20 01/29/20 History tablet,extended release aspirin 81 mg tablet,delayed 81 mg PO DAILY 01/22/20 01/29/20 History release carvedilol 6.25 mg tablet 6.25 mg PO BID 01/22/20 01/29/20 History gabapentin 300 mg capsule 300 mg PO BID 01/22/20 01/29/20 History lisinopril 5 mg tablet 5 mg PO DAILY 01/22/20 01/29/20 History metformin 1 tab PO BIDWM 01/29/20 01/29/20 History simvastatin 1 tab PO DAILY 01/29/20 01/29/20 History metformin 500 mg/5 mL oral solution 500 mg PO BID 02/05/20 History montelukast 10 mg tablet 10 mg PO BEDTIME 02/05/20 History prednisone 10 mg tablet 30 mg PO DAILY tab 02/05/20 History simvastatin 20 mg tablet 20 mg PO BEDTIME 02/05/20 History <Lida Wilkins NP - Last Filed: 01/29/20 18:56> Physical Exam Vital Signs and Narrative: Vital Signs: Last Vital Signs Temp 98.6 F 01/29/20 16:26 Pulse 95 01/29/20 16:26 Resp 24 H 01/29/20 16:26 BP 165/92 H 01/29/20 16:26 Pulse Ox 95 01/29/20 16:26 Body Mass Index 31.5 <Lida Wilkins NP - Last Filed: 01/29/20 18:56> Appearing in no acute distress head is normocephalic atraumatic eyes pupils are PERRLA sclera is anicteric mouth throat mucous membranes are intact and moist neck is supple no lymphadenopathy, no JVD noted lung sounds are clear to auscultation heart regular rate rhythm, clear S1, S2, cramping pain to both calves, pin s and needles to plantar aspect of both feet. positive bowel sounds, abdomen is soft, nontender neuro patient is alert x3, no focal deficits <Lida Wilkins NP - Last Filed: 01/29/20 18:56> Results Labs CBC and Chem 7: : 01/31/20 05:23 01/31/20 05:23 <Lida Wilkins NP - Last Filed: 01/29/20 18:56> Labs: Laboratory Results - last 24 hr 01/29/20 01/29/20 01/29/20 15:27 15:27 15:27 MCV 91.2 MCH 30.1 MCHC 33.1 RDW 13.2 Plt Count 412 H D MPV 10.2 Immature Gran % (Auto) 0.7 H Neut % (Auto) 56.7 Lymph % (Auto) 29.3 [place] % (Auto) 8.3 Eos % (Auto) 4.5 H Baso % (Auto) 0.5 Lymph # (Auto) 3.9 [place] # (Auto) 1.1 Eos # (Auto) 0.6 H Baso # (Auto) 0.1 Abs Immat Gran (auto) 0.09 H Absolute Neuts (auto) 7.6 Absolute Nucleated RBC 0.000 Nucleated RBC % (auto) 0.0 Neutrophils % (Manual) Cancelled Band Neutrophils % Cancelled Lymphocytes % (Manual) Cancelled Atypical Lymphs % (Man) Cancelled Monocytes % (Manual) Cancelled Eosinophils % (Manual) Cancelled Basophils % (Manual) Cancelled Metamyelocytes % Cancelled Myelocytes % Cancelled Promyelocytes % Cancelled Blast Cells % (Manual) Cancelled Plasma Cell % (Manual) Cancelled Abs Neuts (Manual) Cancelled Lymphocytes # (Manual) Cancelled Atyp Lymphs # (Manual) Cancelled Monocytes # (Manual) Cancelled Eosinophils # (Manual) Cancelled Basophils # (Manual) Cancelled Metamyelocytes # Cancelled Myelocytes # Cancelled Promyelocytes # Cancelled Blast Cells # Cancelled Plasma Cell # (Manual) Cancelled Nucleated RBCs Cancelled Differential Comment Cancelled Hypersegmented Neuts Cancelled Smudge Cells Cancelled Toxic Granulation Cancelled Toxic Vacuolation Cancelled Dohle Bodies Cancelled [place]s Cancelled WBC Morphology Comment Cancelled Platelet Estimate Cancelled Large Platelets Cancelled Giant Platelets Cancelled Plt Morphology Comment Cancelled RBC Morphology Cancelled Polychromasia Cancelled Hypochromasia Cancelled Basophilic Stippling Cancelled Microcytosis Cancelled Macrocytosis Cancelled Spherocytes Cancelled Pappenheimer Bodies Cancelled Sickle Cells Cancelled Target Cells Cancelled Tear Drop Cells Cancelled Ovalocytes Cancelled Stomatocytes Cancelled [place] Bodies Cancelled [place] Cells Cancelled Acanthocytes (Spur) Cancelled Rouleaux Cancelled Schistocytes Cancelled Anion Gap 15 Estim Creat Clear Calc 76.4 Estimated GFR > 60 Random Glucose 216 H Lactic Acid Calcium 9.2 Coronavirus (PCR) NEGATIVE Influenza Type A (PCR) NEGATIVE Influenza Type B (PCR) NEGATIVE RSV RNA Qual (PCR) NEGATIVE 01/29/20 16:42 MCV MCH MCHC RDW Plt Count MPV Immature Gran % (Auto) Neut % (Auto) Lymph % (Auto) [place] % (Auto) Eos % (Auto) Baso % (Auto) Lymph # (Auto) [place] # (Auto) Eos # (Auto) Baso # (Auto) Abs Immat Gran (auto) Absolute Neuts (auto) Absolute Nucleated RBC Nucleated RBC % (auto) Neutrophils % (Manual) Band Neutrophils % Lymphocytes % (Manual) Atypical Lymphs % (Man) Monocytes % (Manual) Eosinophils % (Manual) Basophils % (Manual) Metamyelocytes % Myelocytes % Promyelocytes % Blast Cells % (Manual) Plasma Cell % (Manual) Abs Neuts (Manual) Lymphocytes # (Manual) Atyp Lymphs # (Manual) Monocytes # (Manual) Eosinophils # (Manual) Basophils # (Manual) Metamyelocytes # Myelocytes # Promyelocytes # Blast Cells # Plasma Cell # (Manual) Nucleated RBCs Differential Comment Hypersegmented Neuts Smudge Cells Toxic Granulation Toxic Vacuolation Dohle Bodies [place]s WBC Morphology Comment Platelet Estimate Large Platelets Giant Platelets Plt Morphology Comment RBC Morphology Polychromasia Hypochromasia Basophilic Stippling Microcytosis Macrocytosis Spherocytes Pappenheimer Bodies Sickle Cells Target Cells Tear Drop Cells Ovalocytes Stomatocytes [place] Bodies [place] Cells Acanthocytes (Spur) Rouleaux Schistocytes Anion Gap Estim Creat Clear Calc Estimated GFR Random Glucose Lactic Acid 1.2 Calcium Coronavirus (PCR) Influenza Type A (PCR) Influenza Type B (PCR) RSV RNA Qual (PCR) <Lida Wilkins NP - Last Filed: 01/29/20 18:56> Imaging Radiologist's Impressions: Impressions Chest X-Ray 01/29/20 15:11 IMPRESSION: Unremarkable chest examination. <Lida Wilkins NP - Last Filed: 01/29/20 18:56> Assessment and Plan (1) Femoral-popliteal bypass graft occlusion: Status: Acute <Lida Wilkins NP - Last Filed: 01/29/20 18:56> (2) Acute exacerbation of chronic obstructive airways disease: Status: Acute <Ldia Wilkins NP - Last Filed: 01/29/20 18:56> 69 year old man admitted with occlusion of the right femoral- popliteal bypass graft, [place] right superficial femoral artery and left superficial femoral artery stent. PAD/Bypass occlusion. Start IV heparin, Vascular surgery to follow. Pain medications as needed. Continue aspirin and statin. COPD exacerbation. Duonebs, solumedrol, Doxycycline. Supplemental oxygen as needed. Diabetes. Sliding scale, ADA diet, continue home medications. Hypertension. Continue Lisinopril, BB. DVT prophylaxis with IV heparin. Discussed with Dr. Perze Full code. <Lida Wilkins NP - Last Filed: 01/29/20 18:56>
[2020-01-29 18:52] LABS: Procalcitonin 0.03 ng/mL
[2020-01-29 18:54] LABS: B Type Natriuretic Peptide 27 pg/mL (<100)
[2020-01-29 19:22] VITALS: BMI 31.9
[2020-01-29 19:23] LABS: Prothrombin Time 12.3 SEC (10.8-13.0)
[2020-01-29 19:26] LABS: PTT Heparin Drip 33.5 SEC (53-77.9)
[2020-01-29] MEDS: Heparin Sodium,Porcine/1/2NS 25,000 UNIT/250 ML IV.SOLN 10 UNIT IVCONT (19:41)
[2020-01-29 21:45] VITALS: BP 181/72; PULSE 92; RESP 20; TEMP 36.6; O2SAT 96
[2020-01-29] MEDS: Doxycycline Hyclate 100 MG in 0.9 % Sodium Chloride 250 ML 166.67 MG IV (22:35)
[2020-01-29] MEDS: Insulin Lispro 100 UNIT/ML 3 ML VIAL SUBCUT (23:06)
[2020-01-29 23:13] VITALS: BP 158/74; PULSE 100; RESP 18; TEMP 36.4; O2SAT 96
[2020-01-30] VITALS (8 sets, daily range): BP systolic 132–162; BP diastolic 63–76; PULSE 82–102; RESP 16–18; TEMP 36.3–36.7; O2SAT 94–98; BMI 31.9
[2020-01-30 00:31] LABS: Glucose, Whole Blood 538 mg/dL (60-115)
[2020-01-30 01:04] LABS: Glucose, Whole Blood 515 mg/dL (60-115)
[2020-01-30] MEDS: Insulin Lispro 100 UNIT/ML 3 ML VIAL 10 UNIT SUBCUT ×3 (01:13→17:31)
[2020-01-30] MEDS: Acetaminophen 325 MG TABLET 650 MG PO (01:46)
[2020-01-30] MEDS: Albuterol/Iprat 2.5/0.5MG 3 ML AMPUL.NEB INHALE ×4 (02:01→19:18)
[2020-01-30 02:37] LABS: PTT Heparin Drip 52.1 SEC (53-77.9)
[2020-01-30] MEDS: Heparin Sodium,Porcine 5,000 UNIT/ML VIAL 4000 UNIT IVPUSH (05:02)
[2020-01-30 06:53] LABS: Basophils Percent Auto 0.1 % (0-2); Eosinophils Percent Auto 0.1 % (0-4); Hematocrit 42.1 % (42-52); Imm Gran Abs Auto 0.12 X10*3/uL (0.00-0.03); Imm Gran Pct Auto 1.1 % (0.0-0.4); Lymphocytes Absolute Auto 1.5 X10*3/uL (1.2-4.9); Lymphocytes Percent Auto 13.8 % (20-40); MANUAL DIFF FLAG NO; Mean Corpuscular HGB Conc 33.3 g/dl (31.0-36.0); Mean Corpuscular Hemoglobin 29.9 pg (27.0-33.0); Mean Corpuscular Volume 89.8 fL (80-98); Mean Platelet Volume 10.7 fL (9.4-12.4); Monocytes Absolute Auto 0.2 X10*3/uL (0.1-1.2); Monocytes Percent Auto 1.9 % (2-11); Platelet Count 301 X10*3/uL (160-400); Red Blood Count 4.69 X10*6/uL (4.60-5.80); Red Cell Distribution Width 13.2 % (11.0-16.0); White Blood Count 10.8 X10*3/uL (4.8-10.8)
--- NOTE | 2020-01-30 07:19 | PC.NURSE ---
bolus was given later because dose was delayed by pharmacy .
[2020-01-30 07:21] LABS: Glucose, Whole Blood 384 mg/dL (60-115)
[2020-01-30 07:27] LABS: Anion Gap 20 (12-20); Blood Urea Nitrogen 19 mg/dL (9-16); Calcium 8.9 mg/dL (8.4-10.2); Carbon Dioxide 19 mmol/L (22-29); Chloride 100 mmol/L (96-108); Creatinine Clr Calc Pharmacy 74.7; Estimated Glomerular Filt Rate > 60; Glucose Random 369 mg/dL (60-115); Potassium 4.2 mmol/l (3.3-5.1); Sodium 135 mmol/L (135-145)
[2020-01-30] MEDS: Insulin Lispro 100 UNIT/ML 3 ML VIAL SUBCUT ×4 (07:46→22:19)
[2020-01-30] MEDS: 0.9 % Sodium Chloride Flush 3 ML SYRINGE IVFLUSH ×3 (07:47→17:31)
[2020-01-30] MEDS: Insulin Glargine,Hum.rec.anlog 100 UNIT/ML 10 ML VIAL 10 UNIT SUBCUT (07:47)
[2020-01-30] MEDS: Atorvastatin Calcium 10 MG TABLET PO (07:47)
[2020-01-30] MEDS: Doxycycline Hyclate 100 MG in 0.9 % Sodium Chloride 250 ML 166.67 MG IV (07:48)
--- NOTE | 2020-01-30 09:30 | MHC.CM.PN ---
IMM 01/30/2020 MALE 69 DX FEMPOP GRAFT OCCLUSION. Pt lives with his son. He is independent. PMH R fempop L stent. [facility]. If STR needed he would like to return. If Therapy in the home he prefers [facility]. Referrals made. DP requires further assessment. Family will provide DC home. Mol on file [facility]. CM will follow.
--- NOTE | 2020-01-30 09:44 | PM.EVENT ---
Event Note Date of Service: 01/30/20 Event Note: Full consult dictated. Continue medical management for respiratory difficulty. Would stop heparin and start on Xarelto 2.5 mg b.i.d.
--- NOTE | 2020-01-30 09:52 | PM.CNPUL ---
History of Present Illness History of Present Illness Consult date: 01/30/20 Chief complaint: fem pop bypass graft occlusion Narrative: 69-year-old man presenting to the ER with complaints of worsening leg pain. patient has a history of femoral popliteal bypass graft with stenting. This was in March and he had some complications with fluid collection to the groin area several times that was drained. Since then he reported he was doing okay however over the last several months she has had increased pain to both of his lower extremity including cramping to his calves and pins and needles in both of his feet. He went to see his vascular surgeon last week and was scheduled to have ultrasounds done today. Is also noted to have wheezing and cough and was sent to the ER. In the ER he was treated for bronchitis. After his ultrasounds today he was told to the come to the ER to be evaluated. Ultrasound showed occlusion of the right femoral popliteal bypass graft, occlusion of the [place] right superficial femoral artery and occlusion of the left superficial femoral artery stent. Patient denies chest pain, shortness of breath, nausea, vomiting, diarrhea. He did report some wheezing over the last several days with history of COPD. Chest x-ray was unremarkable. His blood pressure was slightly elevated. Other labs were within acceptable limits including negative coronavirus PCR. He was started on IV heparin, given a dose of albuterol, Solu-Medrol, ceftriaxone. He will be admitted for further management and treatment of femoral popliteal bypass graft occlusion. He did have a CTA back on 01/21 with demonstrated bronchitis with some evidence of bronchiliolitis. He needs to have his respiratory status corrected in order to have his vascular surgical intervention. Review of Systems Constitutional: Constitutional: Denies night sweats ENT: Denies change in voice, Denies lip swelling, Denies mouth pain, Reports nasal congestion, Reports nasal discharge and Denies tongue swelling Cardiovascular: Cardiovascular: Denies chest pain and Reports dyspnea Respiratory: Respiratory: Reports chest congestion, Reports cough, Reports dyspnea and Reports wheezing Gastrointestinal: Gastrointestinal: Denies abdominal pain Musculoskeletal: Musculoskeletal: Reports muscle cramps Neurologic: Denies Neuro-related abnormal movements Psychiatric: Psychiatric: Denies no additional psychiatric complaints Hematologic/Lymphatic: Hematologic/Lymphatic: Denies easy bleeding and Denies lymphadenopathy Allergic/Immunologic: Allergic/Immunologic: Denies lip swelling, Denies tongue swelling and Reports wheezing [facility] Past Medical History Medical History (Updated 01/30/20 @ 09:57 by Kaden Wilkins MD) Bronchitis DM2 (diabetes mellitus, type 2) Femoral-popliteal bypass graft occlusion HTN (hypertension) Hyperlipidemia PAD (peripheral artery disease) PVD (peripheral vascular disease) Tubular adenoma of colon Family History Family History Father No problems noted. Mother No problems noted. Surgical History Surgical History History of esophagogastroduodenoscopy (EGD) History of femoral angiogram Hx of cholecystectomy Hx of colonoscopy Hx of tonsillectomy Hx of vasectomy Social History Social History Household Members: Children Housing: House Smoking Status: Former smoker Years Smoked: 56 Smoked in Last 30 Days: No Use of substances other than those prescribed or required for medical reasons: No Have you been hit, kicked, punched, or otherwise hurt by someone within the past year? If so, by whom?: No Do you feel safe in your current relationship?: Yes Advance Directives: No Advance Directives Information Provided: Yes Do you have thoughts of harming others: None Recently lost weight without trying: No service: No Current occupational status: retired [employer] Allergies Allergy/AdvReac Type Severity Reaction Status Date / Time morphine [MORPHINE] AdvReac Intermediate VOMITING Verified 01/29/20 15:08 Home Medications Medication Instructions Recorded Confirmed Type acetaminophen 650 mg 650 mg PO Q8H 01/22/20 01/29/20 History tablet,extended release aspirin 81 mg tablet,delayed 81 mg PO DAILY 01/22/20 01/29/20 History release carvedilol 6.25 mg tablet 6.25 mg PO BID 01/22/20 01/29/20 History docusate sodium 100 mg capsule 100 mg PO DAILY 01/22/20 01/29/20 History ferrous sulfate 325 mg (65 mg 325 mg PO DAILY 01/22/20 01/29/20 History iron) tablet gabapentin 300 mg capsule 300 mg PO BID 01/22/20 01/29/20 History lisinopril 5 mg tablet 5 mg PO DAILY 01/22/20 01/29/20 History glipizide 1 tab PO DAILY 01/29/20 01/29/20 History metformin 1 tab PO BIDWM 01/29/20 01/29/20 History simvastatin 1 tab PO DAILY 01/29/20 01/29/20 History Physical Exam Vital Signs: Vital Signs: Last Vital Signs Temp 97.8 F 01/30/20 07:51 Pulse 98 01/30/20 07:51 Resp 18 01/30/20 07:51 BP 153/73 H 01/30/20 07:51 Pulse Ox 94 01/30/20 07:51 Body Mass Index 31.9 Const: General: alert HENMT: General nose exam: Abnormal external nose present and Nasal discharge present Eyes: Pupils: Equal, round and reactive pupils present Neck: Neck: Yes normal visual inspection, Yes full ROM and Yes no lymphadenopathy Chest: Chest palpation & inspection: normal inspection of the chest Resp: Auscultation: rhonchi, wheezes and diminished lung sounds Cardio: Rate: regular rate Rhythm: regular rhythm Heart sounds: S1 normal heart sound present and S2 normal heart sound present GI: Palpation (GI): Soft to palpation and nontender Auscultation: normal bowel sounds : General: Yes no CVA tenderness Back/Spine/Pelvis: Back: no CVA tenderness Skin: General skin exam: rashes and/or lesions noted Neuro: Cranial nerves: Yes Equal, round and reactive pupils present Results Laboratory Findings CBC and BMP: 01/30/20 05:20 01/30/20 05:20 ABG, PT/INR, D-dimer: PT/INR, D-dimer PT 12.3 SEC (10.8-13.0) 01/29/20 19:03 INR 1.0 (0.9-1.1) 01/29/20 19:03 Abnormal lab findings: Abnormal Labs 01/29/20 01/29/20 01/29/20 15:27 15:27 19:03 WBC 13.4 H Plt Count 412 H D Immature Gran % (Auto) 0.7 H Neut % (Auto) Lymph % (Auto) [place] % (Auto) Eos % (Auto) 4.5 H Eos # (Auto) 0.6 H Abs Immat Gran (auto) 0.09 H Absolute Neuts (auto) PTT (Heparin Protocol) 33.5 L Carbon Dioxide BUN POC Glucose Random Glucose 216 H 01/29/20 01/30/20 01/30/20 22:31 01:00 01:49 WBC Plt Count Immature Gran % (Auto) Neut % (Auto) Lymph % (Auto) [place] % (Auto) Eos % (Auto) Eos # (Auto) Abs Immat Gran (auto) Absolute Neuts (auto) PTT (Heparin Protocol) 52.1 L D Carbon Dioxide BUN POC Glucose 538 H* 515 H* Random Glucose 01/30/20 01/30/20 01/30/20 05:20 05:20 07:17 WBC Plt Count Immature Gran % (Auto) 1.1 H Neut % (Auto) 83.0 H Lymph % (Auto) 13.8 L [place] % (Auto) 1.9 L Eos % (Auto) Eos # (Auto) Abs Immat Gran (auto) 0.12 H Absolute Neuts (auto) 9.0 H PTT (Heparin Protocol) Carbon Dioxide 19 L BUN 19 H POC Glucose 384 H* Random Glucose 369 H* Microbiology: Microbiology 01/29/20 16:36 Blood - Venous Blood Culture - Preliminary Assessment and Plan (1) Acute exacerbation of chronic obstructive airways disease: Status: Acute Increase Solumedrol Start Breo 200 check IgE levels, Will need outpt eval (2) Bronchitis: Status: Acute Start azithromycin
--- NOTE | 2020-01-30 10:07 | P.PNIM_ITS ---
Subjective Subjective Date of Service: 01/30/20 Interval History: seen and examined this AM still SOB, but slightly improved leg pain stable at rest denies chest pain General - no fevers or chills Cardiovascular - no chest pain Respiratory - +sob, mostly exertional Abdominal- no abdominal pain, nausea, vomiting, diarrhea Physical Exam 2 Vital Signs: Vital Signs: Last Vital Signs Temp 97.8 F 01/30/20 07:51 Pulse 98 01/30/20 07:51 Resp 18 01/30/20 07:51 BP 153/73 H 01/30/20 07:51 Pulse Ox 94 01/30/20 07:51 Body Mass Index 31.9 Const: Other: General - no acute distress, appears comfortable Cardiovascular - regular rate and rhythm, S1-S2 Lungs - scattered wheezing/ronchi Abdomen - soft, nontender, no rebound or guarding Extremities - no edema bilaterally Neuro - awake and alert, no focal deficits Objective Data Current Medications Generic Name Dose Route Start Last Admin Trade Name Freq PRN Reason Stop Dose Admin Acetaminophen 650 mg 01/29/20 21:49 01/30/20 01:46 Acetaminophen 325 Mg Tablet PO 650 mg Q6H PRN Administration Pain, Mild (Pain Scale 1-3) Albuterol/Ipratropium 3 ml 01/29/20 21:49 01/30/20 07:24 Albuterol/Iprat 2.5/0.5mg 3 Ml Ampul.Neb INHALE 3 ml RQ6H WHILE AWAKE JB Administration Atorvastatin Calcium 10 mg 01/30/20 09:00 01/30/20 07:47 Atorvastatin Calcium 10 Mg Tablet PO 10 mg DAILY JB Administration Azithromycin 500 mg 01/30/20 10:15 Azithromycin 500 Mg Tablet PO Q24H [facility] Fluticasone/Vilanterol 1 puff 01/31/20 08:00 Fluticasone/Vilanterol 200/25 Blst.W.Dev INHALE RDAILY [facility] Insulin Glargine 10 unit 01/30/20 09:00 01/30/20 07:47 Insulin Glargine,Hum.Rec.Anlog 100 Unit/Ml 10 Ml Vial SUBCUT 10 unit DAILY JB Administration Insulin Human Lispro 0 unit 01/29/20 21:49 01/30/20 07:46 Insulin Lispro 100 Unit/Ml 3 Ml Vial SUBCUT 10 unit QIDACHS [facility] Administration Protocol Methylprednisolone Sodium Succinate 60 mg 01/30/20 10:00 Methylprednisolone Sod Succ/Pf 40 Mg/Ml Vial IVPUSH Q8H JB Montelukast Sodium 10 mg 01/30/20 21:00 Montelukast Sodium 10 Mg Tablet PO BEDTIME [facility] Ondansetron HCl 4 mg 01/29/20 21:49 Ondansetron Hcl 4 Mg/2 Ml Vial IVPUSH Q8H PRN Nausea and Vomiting Pharmacy Consult 1 each 01/29/20 18:04 Consult Rx Perform Med Rec MISCELLANE ONCE PRN Consult order Sodium Chloride 3 ml 01/30/20 00:00 01/30/20 07:47 0.9 % Sodium Chloride Flush 3 Ml Syringe IVFLUSH 3 ml QSHIFT [facility] Administration Labs CBC & Chem 7: 01/30/20 05:20 01/30/20 05:20 Microbiology Microbiology Results: Microbiology 01/29/20 16:36 Blood - Venous Blood Culture - Preliminary Assessment and Plan (1) Bronchitis: Status: Acute Assessment and Plan: This is a 69 yo M admitted for COPD exacerbation. 1. Acute Respiratory Failure with hypoxia secondary to copd exacerbation IV steriods, increased to 80mg q8h, scheduled updraftrs azithromcyin pulmonary eval appreciated 2. PAD evaluated by vascular, input apprecaited - recommends: stop IV heparin and start eliquis 2.5mg BID (discussed this change from xarelto with Dr. Alva). statin 3. Uncontrolled DM on PO meds at home, check a1c use sliding scale and add 10 units of lantus this AM change to diabetic diet 4. HTN continue his home meds Full Code DVT pptx, eliquis 2.5mg BID
[2020-01-30 10:39] LABS: Estimated Average Glucose 249 mg/dL; Hemoglobin A1c % 10.3 %
--- NOTE | 2020-01-30 10:53 | CONS_ITS ---
DATE OF SERVICE: 01/30/2020 REASON FOR CONSULTATION: Peripheral artery disease. HISTORY OF PRESENT ILLNESS: This is a 69-year-old gentleman, well known to me with a history of femoral-popliteal bypass, who had been complaining of leg pain for a few weeks now. He presented to my office last week with acute shortness of breath. He was subsequently sent to the ER and worked up and treated for bronchitis. He had noninvasive arterial testing yesterday and upon return from the testing, he once again had another episode of acute shortness of breath, and he subsequently requested his son take him to the ER. He was then admitted for workup of a shortness of breath. He now presents to us for vascular followup. PAST MEDICAL HISTORY: Significant for peripheral artery disease, hypertension, hyperlipidemia, diabetes, and tubular adenoma of the colon. PAST SURGICAL HISTORY: Includes right-sided fem above knee popliteal bypass with core and a prior iliac stenting. In addition to EGD, cholecystectomy, colonoscopy, tonsillectomy and vasectomy. MEDICATIONS: Medication list was reviewed per nursing MAR. ALLERGIES: HE HAS NO KNOWN DRUG ALLERGIES. SOCIAL HISTORY: Former smoker. Nondrinker. FAMILY HISTORY: No history of advanced coronary artery disease or peripheral vascular disease. REVIEW OF SYSTEMS: 13-point review was performed. At the current time, denies any headache, dizziness, nausea, vomiting, diarrhea. He denies any significant lower extremity pain at rest. He is short of breath, it has improved since admission, but when having a conversation, he starts to have respiratory difficulty. PHYSICAL EXAMINATION: VITAL SIGNS: Temperature of 97.8, pulse of 98, respiration rate of 18, blood pressure of 153/73. HEAD AND NECK: Demonstrates no bruits. CHEST: Moving air bilaterally. CARDIAC: Positive S1 and S2. ABDOMEN: Soft. EXTREMITIES: Upper extremities have good radial and ulnar pulses. Lower extremities warm with good capillary refill. Motor and sensation intact. NEUROLOGICAL: II through XII grossly intact. PSYCH: Mood and affect appear within normal limits. IMPRESSION: Peripheral artery disease, right-sided femoral-popliteal occlusion. It appears this is more chronic, it is non-limb threatening as motor and sensation is intact. He is able to ambulate to his mailbox with no difficulty from a lower extremity standpoint. At the current time, would continue workup for his respiratory issues. I have requested Pulmonary become involved as he may need future intervention and will need pulmonary clearance prior to any intervention. Would stop heparin. Would recommend Xarelto 2.5 mg b.i.d. to start and continue upon discharge. He will follow up with us as an outpatient in approximately 2 weeks' time. Thank you for allowing us to assist in his care. If there are any questions or concerns, please do not hesitate to contact us. MD SUSIE He/EVI / [phone]
[2020-01-30 11:08] LABS: Glucose, Whole Blood 586 mg/dL (60-115)
[2020-01-30] MEDS: Azithromycin 500 MG TABLET PO (11:32)
[2020-01-30] MEDS: Apixaban 2.5 MG TABLET PO ×2 (11:32→22:18)
[2020-01-30] MEDS: Lactated Ringers 1,000 ML 100 ML IVCONT ×2 (11:39→22:48)
[2020-01-30 12:38] LABS: Glucose, Whole Blood 465 mg/dL (60-115)
[2020-01-30 13:07] LABS: SARS COV2 IgG Negative (Negative)
[2020-01-30] MEDS: Insulin Regular, Human 100 UNIT/ML 3 ML VIAL 10 UNIT IVPUSH (14:19)
[2020-01-30 14:21] LABS: Glucose, Whole Blood 439 mg/dL (60-115)
[2020-01-30 15:16] LABS: Glucose, Whole Blood 397 mg/dL (60-115)
[2020-01-30 16:03] LABS: Glucose, Whole Blood 311 mg/dL (60-115)
[2020-01-30 16:35] LABS: Anion Gap 16 (12-20); Blood Urea Nitrogen 24 mg/dL (9-16); Calcium 9.9 mg/dL (8.4-10.2); Carbon Dioxide 21 mmol/L (22-29); Chloride 102 mmol/L (96-108); Creatinine Clr Calc Pharmacy 71.5; Estimated Glomerular Filt Rate > 60; Glucose Random 328 mg/dL (60-115); Potassium 4.4 mmol/l (3.3-5.1); Sodium 135 mmol/L (135-145)
[2020-01-30 16:59] LABS: Glucose, Whole Blood 321 mg/dL (60-115)
[2020-01-30 21:08] LABS: Glucose, Whole Blood 418 mg/dL (60-115)
[2020-01-30] MEDS: Montelukast Sodium 10 MG TABLET PO (22:18)
[2020-01-30] MEDS: Insulin Glargine,Hum.rec.anlog 100 UNIT/ML 10 ML VIAL 20 UNIT SUBCUT (22:19)
[2020-01-31] VITALS (9 sets, daily range): BP systolic 139–158; BP diastolic 63–71; PULSE 84–107; RESP 16–18; TEMP 35.9–36.6; O2SAT 92–97
[2020-01-31 06:50] LABS: Hematocrit 41.8 % (42-52); Mean Corpuscular HGB Conc 33.5 g/dl (31.0-36.0); Mean Corpuscular Hemoglobin 30.4 pg (27.0-33.0); Mean Corpuscular Volume 90.9 fL (80-98); Mean Platelet Volume 10.7 fL (9.4-12.4); Platelet Count 293 X10*3/uL (160-400); Red Cell Distribution Width 13.2 % (11.0-16.0)
[2020-01-31 07:14] LABS: Glucose, Whole Blood 383 mg/dL (60-115)
[2020-01-31] MEDS: Fluticasone/Vilanterol 200/25 BLST.W.DEV 1 PUFF INHALE (07:21)
[2020-01-31] MEDS: Albuterol/Iprat 2.5/0.5MG 3 ML AMPUL.NEB INHALE ×3 (07:21→19:14)
[2020-01-31 07:43] LABS: Anion Gap 16 (12-20); Blood Urea Nitrogen 22 mg/dL (9-16); Calcium 9.6 mg/dL (8.4-10.2); Carbon Dioxide 23 mmol/L (22-29); Chloride 101 mmol/L (96-108); Creatinine Clr Calc Pharmacy 81.3; Estimated Glomerular Filt Rate > 60; Glucose Random 364 mg/dL (60-115); Sodium 135 mmol/L (135-145)
[2020-01-31] MEDS: Acetaminophen 325 MG TABLET 650 MG PO (08:20)
[2020-01-31] MEDS: 0.9 % Sodium Chloride Flush 3 ML SYRINGE IVFLUSH ×2 (08:20→17:53)
[2020-01-31] MEDS: Apixaban 2.5 MG TABLET PO ×2 (08:21→21:09)
[2020-01-31] MEDS: Insulin Glargine,Hum.rec.anlog 100 UNIT/ML 10 ML VIAL 10 UNIT SUBCUT (08:21)
[2020-01-31] MEDS: Atorvastatin Calcium 10 MG TABLET PO (08:21)
[2020-01-31] MEDS: Azithromycin 500 MG TABLET PO (08:21)
[2020-01-31] MEDS: Insulin Lispro 100 UNIT/ML 3 ML VIAL 10 UNIT SUBCUT ×4 (08:22→21:10)
[2020-01-31] MEDS: Insulin Lispro 100 UNIT/ML 3 ML VIAL SUBCUT ×4 (08:22→21:10)
--- NOTE | 2020-01-31 10:52 | P.PNVS_ITS ---
Subjective Subjective Date of Service: 01/31/20 Patient reports: no new complaints and feels better Interval history: 69-year-old gentleman with history of peripheral vascular disease and known occlusions of bypass was admitted for respiratory distress. He appears to be doing significantly better today. He is sitting up tolerating a diet. Able to speak full sentences with no issues. There is no use of accessory chest muscles. He has been seen by pulmonology as well. Physical Exam Vital Signs: Vital Signs: Last Vital Signs Temp 97.9 F 01/31/20 08:00 Pulse 91 01/31/20 08:00 Resp 18 01/31/20 08:00 BP 150/66 H 01/31/20 08:00 Pulse Ox 94 01/31/20 08:00 Body Mass Index 31.9 Const: General: cooperative, healthy appearing and no acute distress Orientation/consciousness: oriented to person, oriented to place and oriented to time HENMT: Head: Yes normal to inspection Neck: Carotids: no bruits Chest: Chest palpation & inspection: normal inspection of the chest Resp: Effort & Inspection: normal respiratory effort and able to speak in complete sentences Auscultation: clear to auscultation bilaterally Cardio: Rate: regular rate Heart sounds: S1 normal heart sound present and S2 normal heart sound present GI: Inspection: Yes normal to inspection Skin: General skin exam: no rashes or lesions noted Wounds: no wounds Neuro: General: oriented to person, oriented to place, oriented to time and CN's II-XI intact bilaterally Extrem: General: Yes normal to inspection, Yes full ROM and Yes no clubbing, cyanosis or edema Psych: Appearance: grossly normal and well kempt Speech and movement: Normal speech and movement present Affect: normal affect Progress Note: A&P Assessment and plan (1) PAD (peripheral artery disease): Status: Acute Assessment and Plan: In short patient has PA D. It appears to be stable as motor and sensation of the lower extremities are intact. He has been started on Eliquis 2.5 mg b.i.d. he has had significant respiratory improvement. He is stable from my perspective for discharge. Would recommend 3 month follow-up upon discharge for arterial surveillance. I would like his respiratory issues to stabilize prior to any intervention. Thank you for allowing us to assist in his care. Fall Risk Details Current Medications: Current Medications Generic Name Dose Route Start Last Admin Trade Name Freq PRN Reason Stop Dose Admin Acetaminophen 650 mg 01/29/20 21:49 01/31/20 08:20 Acetaminophen 325 Mg Tablet PO 650 mg Q6H PRN Administration Pain, Mild (Pain Scale 1-3) Albuterol/Ipratropium 3 ml 01/29/20 21:49 01/31/20 07:21 Albuterol/Iprat 2.5/0.5mg 3 Ml Ampul.Neb INHALE 3 ml RQ6H WHILE AWAKE JB Administration Apixaban 2.5 mg 01/30/20 10:15 01/31/20 08:21 Apixaban 2.5 Mg Tablet PO 2.5 mg BID JB Administration Atorvastatin Calcium 10 mg 01/30/20 09:00 01/31/20 08:21 Atorvastatin Calcium 10 Mg Tablet PO 10 mg DAILY JB Administration Azithromycin 500 mg 01/30/20 11:00 01/31/20 08:21 Azithromycin 500 Mg Tablet PO 500 mg Q24H JB Administration Fluticasone/Vilanterol 1 puff 01/31/20 08:00 01/31/20 07:21 Fluticasone/Vilanterol 200/25 Blst.W.Dev INHALE 1 puff RDAILY [facility] Administration Insulin Glargine 10 unit 01/30/20 09:00 01/31/20 08:21 Insulin Glargine,Hum.Rec.Anlog 100 Unit/Ml 10 Ml Vial SUBCUT 10 unit DAILY JB Administration Insulin Glargine 20 unit 01/30/20 21:00 01/30/20 22:19 Insulin Glargine,Hum.Rec.Anlog 100 Unit/Ml 10 Ml Vial SUBCUT 20 unit BEDTIME [facility] Administration Insulin Human Lispro 0 unit 01/29/20 21:49 01/31/20 08:22 Insulin Lispro 100 Unit/Ml 3 Ml Vial SUBCUT 10 unit QIDACHS [facility] Administration Protocol Insulin Human Lispro 10 unit 01/30/20 11:30 01/31/20 08:22 Insulin Lispro 100 Unit/Ml 3 Ml Vial SUBCUT 10 unit QIDACHS [facility] Administration Metformin HCl 1,000 mg 01/31/20 17:00 Metformin Hcl 1,000 Mg Tablet PO BIDWM JB Methylprednisolone Sodium Succinate 60 mg 01/31/20 20:00 Methylprednisolone Sod Succ/Pf 40 Mg/Ml Vial IVPUSH Q12H [facility] Montelukast Sodium 10 mg 01/30/20 21:00 01/30/20 22:18 Montelukast Sodium 10 Mg Tablet PO 10 mg BEDTIME JB Administration Ondansetron HCl 4 mg 01/29/20 21:49 Ondansetron Hcl 4 Mg/2 Ml Vial IVPUSH Q8H PRN Nausea and Vomiting Pharmacy Consult 1 each 01/29/20 18:04 Consult Rx Perform Med Rec MISCELLANE ONCE PRN Consult order Sodium Chloride 3 ml 01/30/20 00:00 01/31/20 08:20 0.9 % Sodium Chloride Flush 3 Ml Syringe IVFLUSH 3 ml QSHIFT JB Administration Time Spent With Patient Time: Total time spent is greater than 50% in coordination of care (as documented) at patient's floor/unit and/or counseling patient: Time with patient: 15 - 24 minutes
[2020-01-31 11:08] LABS: Glucose, Whole Blood 405 mg/dL (60-115)
--- NOTE | 2020-01-31 12:16 | HO.PM.IMPN ---
Subjective Subjective Date of Service: 01/31/20 Interval History: seen and examined this AM reports feeling less sob compared to yesterday had a long discussion with him about this diabetes and if he would be willing on start insulin as his sugars have been persistently significant elevated. He reports he would be willing. General - no fevers or chills Cardiovascular - no chest pain Respiratory - +sob improving Abdominal- no abdominal pain, nausea, vomiting, diarrhea Physical Exam Vital Signs: Vital Signs: Last Vital Signs Temp 97.9 F 01/31/20 08:00 Pulse 91 01/31/20 08:00 Resp 18 01/31/20 08:00 BP 150/66 H 01/31/20 08:00 Pulse Ox 94 01/31/20 08:00 Body Mass Index 31.9 Const: Other: General - no acute distress, appears comfortable Cardiovascular - regular rate and rhythm, S1-S2 Lungs - improving air entry, min wheezing, not using any accessory muslces Abdomen - soft, nontender, no rebound or guarding Extremities - no edema bilaterally Neuro - awake and alert, no focal deficits Objective Data Current Medications Generic Name Dose Route Start Last Admin Trade Name Freq PRN Reason Stop Dose Admin Acetaminophen 650 mg 01/29/20 21:49 01/31/20 08:20 Acetaminophen 325 Mg Tablet PO 650 mg Q6H PRN Administration Pain, Mild (Pain Scale 1-3) Albuterol/Ipratropium 3 ml 01/29/20 21:49 01/31/20 07:21 Albuterol/Iprat 2.5/0.5mg 3 Ml Ampul.Neb INHALE 3 ml RQ6H WHILE AWAKE JB Administration Apixaban 2.5 mg 01/30/20 10:15 01/31/20 08:21 Apixaban 2.5 Mg Tablet PO 2.5 mg BID JB Administration Atorvastatin Calcium 10 mg 01/30/20 09:00 01/31/20 08:21 Atorvastatin Calcium 10 Mg Tablet PO 10 mg DAILY JB Administration Azithromycin 500 mg 01/30/20 11:00 01/31/20 08:21 Azithromycin 500 Mg Tablet PO 500 mg Q24H JB Administration Fluticasone/Vilanterol 1 puff 01/31/20 08:00 01/31/20 07:21 Fluticasone/Vilanterol 200/25 Blst.W.Dev INHALE 1 puff RDAILY JB Administration Insulin Glargine 10 unit 01/30/20 09:00 01/31/20 08:21 Insulin Glargine,Hum.Rec.Anlog 100 Unit/Ml 10 Ml Vial SUBCUT 10 unit DAILY JB Administration Insulin Glargine 20 unit 01/30/20 21:00 01/30/20 22:19 Insulin Glargine,Hum.Rec.Anlog 100 Unit/Ml 10 Ml Vial SUBCUT 20 unit BEDTIME JB Administration Insulin Human Lispro 0 unit 01/29/20 21:49 01/31/20 12:08 Insulin Lispro 100 Unit/Ml 3 Ml Vial SUBCUT 10 unit QIDACHS [facility] Administration Protocol Insulin Human Lispro 10 unit 01/30/20 11:30 01/31/20 12:09 Insulin Lispro 100 Unit/Ml 3 Ml Vial SUBCUT 10 unit QIDACHS [facility] Administration Metformin HCl 1,000 mg 01/31/20 17:00 Metformin Hcl 1,000 Mg Tablet PO BIDWM [facility] Methylprednisolone Sodium Succinate 60 mg 01/31/20 20:00 Methylprednisolone Sod Succ/Pf 40 Mg/Ml Vial IVPUSH Q12H [facility] Montelukast Sodium 10 mg 01/30/20 21:00 01/30/20 22:18 Montelukast Sodium 10 Mg Tablet PO 10 mg BEDTIME [facility] Administration Ondansetron HCl 4 mg 01/29/20 21:49 Ondansetron Hcl 4 Mg/2 Ml Vial IVPUSH Q8H PRN Nausea and Vomiting Pharmacy Consult 1 each 01/29/20 18:04 Consult Rx Perform Med Rec MISCELLANE ONCE PRN Consult order Sodium Chloride 3 ml 01/30/20 00:00 01/31/20 08:20 0.9 % Sodium Chloride Flush 3 Ml Syringe IVFLUSH 3 ml QSHIFT [facility] Administration Labs CBC & Chem 7: 01/31/20 05:23 01/31/20 05:23 Microbiology Microbiology Results: Microbiology 01/29/20 16:36 Blood - Venous Blood Culture - Preliminary No growth after 24 hours. 01/29/20 16:42 Blood - Venous Blood Culture - Preliminary No growth after 24 hours. Assessment and Plan (1) Bronchitis: Status: Acute Assessment and Plan: This is a 69 yo M admitted for COPD exacerbation. 1. Acute Respiratory Failure with hypoxia secondary to copd exacerbation improved wean o2 as tolerated azithromcyin 5-7d course wean solu-medrol to 60mg bid today and likely daily by tomorrow (resp. status improved, but sugars are significantly uncontrolled) pulmonary eval appreciated 2. PAD evaluated by vascular, input appreciated - started on eliquis 2.5mg bid, will send on this 3. Uncontrolled DM A1C trend over the last 6 months 8.3 > 9.5 > 10.3 on metformin/glipizide at home metformin initially as there was a possibility of need of contrast for his PAD. Has been now cleared by vascular, with plans for outpatient f/u. Will restart metformin and continue with uptitration of his insulin. Will likely need insulin upon d/c. 4. HTN continue his home meds Full Code DVT pptx, eliquis 2.5mg BID
--- NOTE | 2020-01-31 14:18 | P.PNPL_ITS ---
Subjective Subjective Date of Service: 01/31/20 Interval history: The patient was seen on exam. He is feeling a little better although still wheezy. We did increase his steroids his blood sugar is significantly elevated. For the steroids were decreased today. We will continue to further maximize his respiratory therapy. He will need close follow-up upon discharge with a pulmonary office. Objective Data Labs CBC & Chem 7: 01/31/20 05:23 01/31/20 05:23 Labs: Laboratory Results - last 24 hr 01/30/20 01/30/20 01/30/20 14:17 15:10 15:55 WBC RBC Hgb Hct MCV MCH MCHC RDW Plt Count MPV Absolute Nucleated RBC Nucleated RBC % (auto) Sodium Potassium Chloride Carbon Dioxide Anion Gap BUN Creatinine Estim Creat Clear Calc Estimated GFR POC Glucose 439 H* 397 H* 311 H Random Glucose Calcium 01/30/20 01/30/20 01/30/20 16:02 16:56 21:03 WBC RBC Hgb Hct MCV MCH MCHC RDW Plt Count MPV Absolute Nucleated RBC Nucleated RBC % (auto) Sodium 135 Potassium 4.4 Chloride 102 Carbon Dioxide 21 L Anion Gap 16 BUN 24 H Creatinine 1.16 Estim Creat Clear Calc 71.5 Estimated GFR > 60 POC Glucose 321 H 418 H* Random Glucose 328 H Calcium 9.9 D 01/31/20 01/31/20 01/31/20 05:23 05:23 07:11 WBC 16.0 H RBC 4.60 Hgb 14.0 Hct 41.8 L MCV 90.9 MCH 30.4 MCHC 33.5 RDW 13.2 Plt Count 293 MPV 10.7 Absolute Nucleated RBC 0.000 Nucleated RBC % (auto) 0.0 Sodium 135 Potassium 5.0 Chloride 101 Carbon Dioxide 23 Anion Gap 16 BUN 22 H Creatinine 1.02 Estim Creat Clear Calc 81.3 Estimated GFR > 60 POC Glucose 383 H* Random Glucose 364 H* Calcium 9.6 01/31/20 11:04 WBC RBC Hgb Hct MCV MCH MCHC RDW Plt Count MPV Absolute Nucleated RBC Nucleated RBC % (auto) Sodium Potassium Chloride Carbon Dioxide Anion Gap BUN Creatinine Estim Creat Clear Calc Estimated GFR POC Glucose 405 H* Random Glucose Calcium Microbiology Microbiology Results: Microbiology 01/29/20 16:36 Blood - Venous Blood Culture - Preliminary No growth after 24 hours. 01/29/20 16:42 Blood - Venous Blood Culture - Preliminary No growth after 24 hours. Review of Systems Constitutional: Denies night sweats Denies change in voice, Denies lip swelling, Denies mouth pain, Reports nasal congestion, Reports nasal discharge and Denies tongue swelling Cardiovascular: Denies chest pain and Reports dyspnea Respiratory: Reports cough, Reports dyspnea and Reports wheezing Gastrointestinal: Denies abdominal pain Musculoskeletal: Denies no additional musculoskeletal complaints Denies Neuro-related abnormal movements Psychiatric: Denies no additional psychiatric complaints Hematologic/Lymphatic: Denies easy bleeding and Denies lymphadenopathy Allergic/Immunologic: Denies lip swelling, Denies tongue swelling and Reports wheezing Physical Exam Vital Signs: Vital Signs: Last Vital Signs Temp 96.6 F L 01/31/20 12:00 Pulse 96 01/31/20 12:47 Resp 18 01/31/20 12:00 BP 142/63 H 01/31/20 12:00 Pulse Ox 92 01/31/20 12:00 Body Mass Index 31.9 Const: General: alert HENMT: General nose exam: Abnormal external nose present and Nasal discharge present Eyes: Pupils: Equal, round and reactive pupils present Neck: Neck: Yes normal visual inspection, Yes full ROM and Yes no lymphadenopathy Chest: Chest palpation & inspection: normal inspection of the chest Resp: Auscultation: wheezes and diminished lung sounds Cardio: Rate: regular rate Rhythm: regular rhythm Heart sounds: S1 normal heart sound present and S2 normal heart sound present GI: Palpation (GI): Soft to palpation and nontender Skin: General skin exam: rashes and/or lesions noted Neuro: Cranial nerves: Yes Equal, round and reactive pupils present Assessment and Plan Assessment and plan (1) Bronchitis: Status: Acute (2) Acute exacerbation of chronic obstructive airways disease: Status: Acute Assessment and Plan: Hopefully change to p.o. prednisone tomorrow Continue Breo Continue singular Added Spiriva I will make arrangements for him to have a follow-up with Pulmonary outpatient in 1 week in order to have additional testing done and further optimization of his respiratory condition. He will need further optimization prior to undergoing general anesthesia for his peripheral arterial disease. Time Spent With Patient Time: Total time spent is greater than 50% in coordination of care (as d ocumented) at patient's floor/unit and/or counseling patient: Time with patient: 15 - 24 minutes
[2020-01-31 16:35] LABS: Glucose, Whole Blood 385 mg/dL (60-115)
[2020-01-31] MEDS: metFORMIN HCl 1,000 MG TABLET 1000 MG PO (17:53)
[2020-01-31] MEDS: Omeprazole 20 MG CAPSULE.DR PO (18:19)
[2020-01-31 20:48] LABS: Glucose, Whole Blood 314 mg/dL (60-115)
[2020-01-31] MEDS: Montelukast Sodium 10 MG TABLET PO (21:09)
[2020-01-31] MEDS: Insulin Glargine,Hum.rec.anlog 100 UNIT/ML 10 ML VIAL 20 UNIT SUBCUT (21:09)
[2020-02-01] MEDS: 0.9 % Sodium Chloride Flush 3 ML SYRINGE IVFLUSH ×2 (00:11→08:16)
[2020-02-01 03:39] VITALS: BP 144/70; PULSE 90; RESP 18; TEMP 36.6; O2SAT 94
[2020-02-01 03:43] LABS: Immunoglobulin E 832 kU/L (<OR=114)
[2020-02-01] MEDS: Omeprazole 20 MG CAPSULE.DR PO (05:59)
[2020-02-01 08:00] VITALS: BP 172/73; PULSE 95; RESP 20; TEMP 36.4; O2SAT 94
[2020-02-01] MEDS: Albuterol/Iprat 2.5/0.5MG 3 ML AMPUL.NEB INHALE (08:06)
[2020-02-01] MEDS: Fluticasone/Vilanterol 200/25 BLST.W.DEV 1 PUFF INHALE (08:08)
[2020-02-01 08:09] VITALS: PULSE 98; O2SAT 95
[2020-02-01 08:10] LABS: Glucose, Whole Blood 288 mg/dL (60-115)
[2020-02-01] MEDS: Insulin Lispro 100 UNIT/ML 3 ML VIAL SUBCUT ×2 (08:14→12:20)
[2020-02-01] MEDS: metFORMIN HCl 1,000 MG TABLET 1000 MG PO (08:15)
[2020-02-01] MEDS: Atorvastatin Calcium 10 MG TABLET PO (08:15)
[2020-02-01] MEDS: Insulin Lispro 100 UNIT/ML 3 ML VIAL 10 UNIT SUBCUT (08:15)
[2020-02-01] MEDS: Apixaban 2.5 MG TABLET PO (08:15)
[2020-02-01 12:00] VITALS: BP 181/86; PULSE 98; RESP 20; TEMP 34.8; O2SAT 93
[2020-02-01 12:09] LABS: Glucose, Whole Blood 272 mg/dL (60-115)
[2020-02-01] MEDS: Azithromycin 500 MG TABLET PO (12:16)
--- NOTE | 2020-02-01 12:25 | MHC.CM.PN ---
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 DP to home no in home services. Pt will be going to Pulmonary rehab here @ [facility]. He will be going home on new insulin, as well as new Eliquis. The 30 day free trial coupon/pamphlet were provided to the patient. The Patient declined Homecare services. family will provide transportation.
--- NOTE | 2020-02-01 13:25 | MHC.CM.PN ---
DP Patient is agreeable with home services. Contact made w [facility] via [employer] requesting home services. They with start services on Wednesday at the Pts request.
--- NOTE | 2020-02-01 14:12 | P.DS_ITS ---
DS: Providers Provider Date of admission: 01/29/20 18:20 Primary care physician: Juanito Jalloh MD Consults: 01/29/20 21:49 Consult to Vascular Surgery Routine Consulting Provider: Pasha Alva Reason for consultation: FEM-POP GRAFT OCCLUSION Has provider been notified: No 01/30/20 08:56 Consult to Pulmonology Routine Consulting Provider: Kaden Wilkins Reason for consultation: copd / pulmonary eval DS: Diagnosis Discharge Diagnosis (1) Acute respiratory failure with hypoxia: Status: Acute (2) Acute exacerbation of chronic obstructive airways disease: Status: Acute (3) Uncontrolled diabetes mellitus: Status: Acute (4) Femoral-popliteal bypass graft occlusion: Status: Acute DS: Medications Discharge Medications Home Medications: Home Medications Medication Instructions Recorded Confirmed acetaminophen 650 mg 650 mg PO Q8H 01/22/20 01/29/20 tablet,extended release aspirin 81 mg tablet,delayed 81 mg PO DAILY 01/22/20 01/29/20 release carvedilol 6.25 mg tablet 6.25 mg PO BID 01/22/20 01/29/20 docusate sodium 100 mg capsule 100 mg PO DAILY 01/22/20 01/29/20 ferrous sulfate 325 mg (65 mg 325 mg PO DAILY 01/22/20 01/29/20 iron) tablet gabapentin 300 mg capsule 300 mg PO BID 01/22/20 01/29/20 lisinopril 5 mg tablet 5 mg PO DAILY 01/22/20 01/29/20 metformin 1 tab PO BIDWM 01/29/20 01/29/20 simvastatin 1 tab PO DAILY 01/29/20 01/29/20 Previous Rx's Medication Instructions Recorded albuterol sulfate 2 puff INHALATION QID PRN #18 g 01/22/20 albuterol sulfate 90 mcg/actuation 2 puff INHALATION Q6H PRN 30 Days 02/01/20 aerosol inhaler #18 g apixaban [Eliquis] 2.5 mg PO BID #60 tab 02/01/20 fluticasone furoate 200 1 inh INHALATION DAILY 30 Days #60 02/01/20 mcg-vilanterol 25 mcg/dose ea inhalation powder insulin glargine [Basaglar KwikPen 20 unit SUBCUT BEDTIME 30 Days #6 02/01/20 U-100 Insulin] ml insulin lispro [Humalog U-100 See Rx Instructions .ROUTE 02/01/20 Insulin] .COMPLEX #1 ml ipratropium-albuterol 3 ml INHALATION RQ6H WHILE AWAKE 02/01/20 30 Days #180 ml montelukast 10 mg tablet 10 mg PO DAILY 30 Days #30 tab 02/01/20 prednisone See Taper PO DAILY #30 tab 02/01/20 DS: Summary Hospital Course Hospital Course: HPI 69-year-old man presenting to the ER with complaints of worsening leg pain. patient has a history of femoral popliteal bypass graft with stenting. This was in March and he had some complications with fluid collection to the groin area several times that was drained. Since then he reported he was doing okay however over the last several months she has had increased pain to both of his lower extremity including cramping to his calves and pins and needles in both of his feet. He went to see his vascular surgeon last week and was scheduled to have ultrasounds done today. Is also noted to have wheezing and cough and was sent to the ER. In the ER he was treated for bronchitis. After his ultrasounds today he was told to the come to the ER to be evaluated. Ultrasound showed occlusion of the right femoral popliteal bypass graft, occlusion of the jena right superficial femoral artery and occlusion of the left superficial femoral artery stent. Patient denies chest pain, shortness of breath, nausea, vomiting, diarrhea. He did report some wheezing over the last several days with history of COPD. Chest x-ray was unremarkable. His blood pressure was slightly elevated. Other labs were within acceptable limits including negative coronavirus PCR. He was started on IV heparin, given a dose of albuterol, Solu-Medrol, ceftriaxone. He will be admitted for further management and treatment of femoral popliteal bypass graft occlusion. Hospital Course: Patient presented to the hospital with complaints of shortness of breath and bilateral lower extremity claudication which is worsening over the last few months. He was initially started on IV heparin drip as his outpatient ultrasound on the same day showed occlusions in the bilateral lower extremity. However clinically the patient did have a faint pulses and had no signs or symptoms to suggest ischemia. He was treated with IV heparin over his 1st 24 hours and vascular surgery was consulted who saw him the next day and recommended discontinuation of heparin and to switch him to Eliquis 2.5 mg twice daily. They recommended optimization of his respiratory status with follow-up with vascular clinic in about 3 months for intervention of his peripheral arterial disease. Patient's hospital course was further complicated by uncontrolled diabetes in COPD exacerbations leading to acute respiratory failure with hypoxia. He was treated with supplemental oxygen and high-dose steroids along with scheduled updrafts. He will be now transitioned to p.o. prednisone with a short taper and has been started on inhalers as per Pulmonary recommendations. He will be followed up with the pulmonary clinic. Patient's diabetes was also problematic with sugars ranging from the 3 to 500 range. he was initially started on mealtime insulin but remained uncontrolled and so long-acting insulin was started. Patient's A1c was checked which was g reater than 10. He was agreeable on starting insulin. He will be started on Basaglar 20 units at bedtime along with sliding scale. He was taught how to dose his mealtime insulin and he was able to appropriately teach back. His glipizide will be discontinued and he can continue metformin. Given patient's respiratory status, as well as new medications and overall physical debility he was recommended to go to short-term rehab. He refused and opted for home with services. Time Spent with Patient Time attestation: Total time spent providing and/or coordinating discharge services: Physical Exam Vital Signs: Vital Signs: Last Vital Signs Temp 94.6 F L 02/01/20 12:00 Pulse 98 02/01/20 12:00 Resp 20 02/01/20 12:00 BP 181/86 H 02/01/20 12:00 Pulse Ox 93 02/01/20 12:00 Body Mass Index 31.9 Const: Other: General - no acute distress, appears comfortable Cardiovascular - regular rate and rhythm, S1-S2 Lungs - diminished, no distress Abdomen - soft, nontender, no rebound or guarding Extremities - no edema bilaterally Neuro - awake and alert, no focal deficits DS: Data Data Completed and Pending Labs on day of discharge: Laboratory Last Values WBC 16.0 X10*3/uL (4.8-10.8) H 01/31/20 05:23 RBC 4.60 X10*6/uL (4.60-5.80) 01/31/20 05:23 Hgb 14.0 g/dl (14.0-18.0) 01/31/20 05:23 Hct 41.8 % (42-52) L 01/31/20 05:23 MCV 90.9 fL (80-98) 01/31/20 05:23 MCH 30.4 pg (27.0-33.0) 01/31/20 05:23 MCHC 33.5 g/dl (31.0-36.0) 01/31/20 05:23 RDW 13.2 % (11.0-16.0) 01/31/20 05:23 Plt Count 293 X10*3/uL (160-400) 01/31/20 05:23 MPV 10.7 fL (9.4-12.4) 01/31/20 05:23 Immature Gran % (Auto) 1.1 % (0.0-0.4) H 01/30/20 05:20 Neut % (Auto) 83.0 % (45-73) H 01/30/20 05:20 Lymph % (Auto) 13.8 % (20-40) L 01/30/20 05:20 Stafford % (Auto) 1.9 % (2-11) L 01/30/20 05:20 Eos % (Auto) 0.1 % (0-4) 01/30/20 05:20 Baso % (Auto) 0.1 % (0-2) 01/30/20 05:20 Lymph # (Auto) 1.5 X10*3/uL (1.2-4.9) 01/30/20 05:20 Stafford # (Auto) 0.2 X10*3/uL (0.1-1.2) 01/30/20 05:20 Eos # (Auto) 0.0 X10*3/uL (0.0-0.4) 01/30/20 05:20 Baso # (Auto) 0.0 X10*3/uL (0.0-0.2) 01/30/20 05:20 Abs Immat Gran (auto) 0.12 X10*3/uL (0.00-0.03) H 01/30/20 05:20 Absolute Neuts (auto) 9.0 X10*3/uL (2.0-8.3) H 01/30/20 05:20 Absolute Nucleated RBC 0.000 X10*3/uL (0.0-0.012) 01/31/20 05:23 Nucleated RBC % (auto) 0.0 /100WBC (0.0-0.2) 01/31/20 05:23 Neutrophils % (Manual) Cancelled 01/29/20 15:27 Band Neutrophils % Cancelled 01/29/20 15:27 Lymphocytes % (Manual) Cancelled 01/29/20 15:27 Atypical Lymphs % (Man) Cancelled 01/29/20 15:27 Monocytes % (Manual) Cancelled 01/29/20 15:27 Eosinophils % (Manual) Cancelled 01/29/20 15:27 Basophils % (Manual) Cancelled 01/29/20 15:27 Metamyelocytes % Cancelled 01/29/20 15:27 Myelocytes % Cancelled 01/29/20 15:27 Promyelocytes % Cancelled 01/29/20 15:27 Blast Cells % (Manual) Cancelled 01/29/20 15:27 Plasma Cell % (Manual) Cancelled 01/29/20 15:27 Abs Neuts (Manual) Cancelled 01/29/20 15:27 Lymphocytes # (Manual) Cancelled 01/29/20 15:27 Atyp Lymphs # (Manual) Cancelled 01/29/20 15:27 Monocytes # (Manual) Cancelled 01/29/20 15:27 Eosinophils # (Manual) Cancelled 01/29/20 15:27 Basophils # (Manual) Cancelled 01/29/20 15:27 Metamyelocytes # Cancelled 01/29/20 15:27 Myelocytes # Cancelled 01/29/20 15:27 Promyelocytes # Cancelled 01/29/20 15:27 Blast Cells # Cancelled 01/29/20 15:27 Plasma Cell # (Manual) Cancelled 01/29/20 15:27 Nucleated RBCs Cancelled 01/29/20 15:27 Differential Comment Cancelled 01/29/20 15:27 Hypersegmented Neuts Cancelled 01/29/20 15:27 Smudge Cells Cancelled 01/29/20 15:27 Toxic Granulation Cancelled 01/29/20 15:27 Toxic Vacuolation Cancelled 01/29/20 15:27 Dohle Bodies Cancelled 01/29/20 15:27 Kain Rods Cancelled 01/29/20 15:27 WBC Morphology Comment Cancelled 01/29/20 15:27 Platelet Estimate Cancelled 01/29/20 15:27 Large Platelets Cancelled 01/29/20 15:27 Giant Platelets Cancelled 01/29/20 15:27 Plt Morphology Comment Cancelled 01/29/20 15:27 RBC Morphology Cancelled 01/29/20 15:27 Polychromasia Cancelled 01/29/20 15:27 Hypochromasia Cancelled 01/29/20 15:27 Basophilic Stippling Cancelled 01/29/20 15:27 Microcytosis Cancelled 01/29/20 15:27 Macrocytosis Cancelled 01/29/20 15:27 Spherocytes Cancelled 01/29/20 15:27 Pappenheimer Bodies Cancelled 01/29/20 15:27 Sickle Cells Cancelled 01/29/20 15:27 Target Cells Cancelled 01/29/20 15:27 Tear Drop Cells Cancelled 01/29/20 15:27 Ovalocytes Cancelled 01/29/20 15:27 Stomatocytes Cancelled 01/29/20 15:27 Rivera-Sutherlin Bodies Cancelled 01/29/20 15:27 Goshen Cells Cancelled 01/29/20 15:27 Acanthocytes (Spur) Cancelled 01/29/20 15:27 Rouleaux Cancelled 01/29/20 15:27 Schistocytes Cancelled 01/29/20 15:27 PT 12.3 SEC (10.8-13.0) 01/29/20 19:03 INR 1.0 (0.9-1.1) 01/29/20 19:03 PTT (Heparin Protocol) 52.1 SEC (53-77.9) L D 01/30/20 01:49 Sodium 135 mmol/L (135-145) 01/31/20 05:23 Potassium 5.0 mmol/l (3.3-5.1) 01/31/20 05:23 Chloride 101 mmol/L (96-108) 01/31/20 05:23 Carbon Dioxide 23 mmol/L (22-29) 01/31/20 05:23 Anion Gap 16 (12-20) 01/31/20 05:23 BUN 22 mg/dL (9-16) H 01/31/20 05:23 Creatinine 1.02 mg/dL (0.5-1.4) 01/31/20 05:23 Estim Creat Clear Calc 81.3 01/31/20 05:23 Estimated GFR > 60 01/31/20 05:23 POC Glucose 272 mg/dL (60-115) H 02/01/20 11:58 Random Glucose 364 mg/dL (60-115) H* 01/31/20 05:23 Estimat Average Glucose 249 mg/dL 01/30/20 06:58 Hemoglobin A1c % 10.3 % 01/30/20 06:58 Lactic Acid 1.2 mmol/L (0.5-2.0) 01/29/20 16:42 Calcium 9.6 mg/dL (8.4-10.2) 01/31/20 05:23 B-Natriuretic Peptide 27 pg/mL (<100) 01/29/20 15:27 Procalcitonin 0.03 ng/mL 01/29/20 15:27 IgE 832 kU/L (<BM=589) H 01/30/20 10:33 Coronavirus (PCR) NEGATIVE (Negative) 01/29/20 15:27 Influenza Type A (PCR) NEGATIVE (Negative) 01/29/20 15:27 Influenza Type B (PCR) NEGATIVE (Negative) 01/29/20 15:27 RSV RNA Qual (PCR) NEGATIVE (Negative) 01/29/20 15:27 SARS-CoV-2 IgG Ab Negative (Negative) 01/30/20 10:33 Preliminary micro results at discharge 01/29/20 16:36 Blood Culture - Preliminary Blood - Venous No growth after 48 hours. 01/29/20 16:42 Blood Culture - Preliminary Blood - Venous No growth after 48 hours. Discharge Plan Discharge Patient Disposition: Home Health Service Referrals: Juanito Jalloh MD [Primary Care Provider] - Pasha Alva MD [Physician] - Kaden Wilkins MD [Physician] - Discharge Medications: New Humalog U-100 Insulin 100 unit/mL cartridge See Rx Instructions .ROUTE .COMPLEX Qty: 1 RF: 0 Basaglar KwikPen U-100 Insulin 100 unit/mL (3 mL) insulin pen 20 unit subcut BEDTIME 30 Days Qty: 6 RF: 0 ipratropium-albuterol 0.5 mg-3 mg(2.5 mg base)/3 mL Solution For Nebulization 3 ml inhalation RQ6H WHILE AWAKE 30 Days Qty: 180 RF: 0 prednisone 10 mg tablet See Taper mg PO DAILY Qty: 30 RF: 0 Eliquis 2.5 mg Tablet 2.5 mg PO BID Qty: 60 RF: 0 Continued albuterol sulfate [ProAir HFA] 90 mcg/actuation HFA aerosol inhaler 2 puff inhalation Q6H PRN (Reason: shortness of breath or wheezing) 30 Days Qty: 18 RF: 11 Breo Ellipta 200-25 mcg/dose blister with device 1 inh inhalation DAILY 30 Days Qty: 60 RF: 11 montelukast 10 mg tablet 10 mg PO DAILY 30 Days Qty: 30 RF: 11 albuterol sulfate 90 mcg/actuation HFA aerosol inhaler 2 puff inhalation QID PRN (Reason: shortness of breath or wheezing) Qty: 18 RF: 0 simvastatin 20 mg tablet 1 tab PO DAILY RF: 0 metformin 500 mg tablet extended release 24 hr 1 tab PO BIDWM RF: 0 Discontinued doxycycline hyclate 100 mg capsule 100 mg PO BID Qty: 20 RF: 0 glipizide 5 mg tablet extended release 24hr 1 tab PO DAILY RF: 0 Discharge Orders: Discharge Order (Routine); Ordered 02/01/20 Ordered By: Brian Perez Diet: advance to usual diet Activity on Discharge: As tolerated Patient Instructions: Hypoglycemia in a Person with Diabetes (DC), Type 2 Diabetes in Adults: New Diagnosis (DC), Basic Carbohydrate Counting (DC), Meal Planning with the Plate Method (DC), Meal Planning with Diabetes Exchanges (DC), Managing Diabetes During Sick Days (DC), How to Check your Blood Sugar (DC) Visit Report Forms: Patient Portal Discharge page Care Plan Goals: To stay healthy and out of the hospital. Health Concerns: Diabetes COPD PAD Plan of Treatment: Diabetes - take Insulin, Basaglar 20 units at bedtime. Use sliding scale as prescribed. COPD - Take prednisone, inhalers and updrafts PAD - Take Eliquis 2.5mg bid
--- NOTE | 2020-02-01 14:58 | W.MHC.F2F ---
Service Date Service Date: 02/01/20 Encounter Date of encounter: 02/01/20 Reasons for Services Signs and symptoms assessed: new insulin copd pad Reason for custodial: diabetic teaching, medication management and teach disease management MD Overseeing Care: Juanito Jalloh Homebound: Leaving the home is medically contraindicated at this time without the asist of a device and/or another person due th the listed conditions above and below. Certification: Based on the above findings, I certify that this patient is confined to the home and needs intermittent custodial care, physical therapy and/or speech therapy, or continues to need occupational therapy. The patient is under my care, and I have initiated the establishment of the plan of care. The patient will be followed by a physician who will periodically review the plan of care.
== END 2020-02-01 15:16 | disposition home health service (06) | DRG 190 ==
LOC: HO.ED 16:33 → HO.IMC 18:33
PROVIDERS: Hospitalist; Nurse Practitioner Acute Care; Admitting Provider Family Medicine; Emergency Provider Internal Medicine; PCP Internal Medicine; Visit Provider Family Medicine
DX: J44.1 Chronic obstructive pulmonary disease with (acute) exacerbation (principal); J96.01 Acute respiratory failure with hypoxia; T82.598A Other mechanical complication of other cardiac and vascular devices and implants, initial encounter; E11.51 Type 2 diabetes mellitus with diabetic peripheral angiopathy without gangrene; Z20.828 Contact with and (suspected) exposure to other viral communicable diseases; Z87.891 Personal history of nicotine dependence; J20.9 Acute bronchitis, unspecified; J44.0 Chronic obstructive pulmonary disease with (acute) lower respiratory infection; Z79.4 Long term (current) use of insulin; Z79.01 Long term (current) use of anticoagulants; Z79.82 Long term (current) use of aspirin; Z79.899 Other long term (current) drug therapy
CPT/HCPCS: 0241U; 36415; 71045; 80048; 82785; 82947; 83036; 83605; 83880; 84145; 85025; 85027; 85610; 85730; 86769; 87040; 93005; 94640; 94644; 96365; 96375; 99285; J0696; J2920; J2930

== ENCOUNTER → 2020-02-05 10:33 | Outpatient (BNVA) | payer MEDICARE, OTHER, SELFPAY | PROVIDERS: PCP Internal Medicine; Visit Provider Internal Medicine | DX: J44.9 Chronic obstructive pulmonary disease, unspecified (principal); J96.01 Acute respiratory failure with hypoxia | CPT/HCPCS: Q3014 ==

== ENCOUNTER 2020-02-19 08:46 | Outpatient (REF) | payer MEDICARE, OTHER, SELFPAY ==
--- NOTE | 2020-02-19 13:28 | PFT_ITS ---
Forced vital capacity normal. FEV1 is slightly reduced. [id number] and MVV are markedly reduced. Bronchodilator challenge was not given because the patient had used a long-acting bronchodilator couple hours before coming for the test. Total lung capacity normal. Residual volume slightly increased. Diffusion capacity moderately decreased. CONCLUSION: Moderately severe obstructive airway disorder. Clinical correlation recommended. MD GALILEO Curtis/EVI / [id number]
== END 2020-02-19 08:47 | disposition home or self-care (01) ==
LOC: HO.RESP 08:46
PROVIDERS: PCP Internal Medicine; Visit Provider Internal Medicine
DX: J44.9 Chronic obstructive pulmonary disease, unspecified (principal); R06.02 Shortness of breath
CPT/HCPCS: 94010; 94727; 94729; 99212

== ENCOUNTER → 2020-02-22 13:22 | Outpatient (BNVA) | payer MEDICARE, OTHER, SELFPAY | PROVIDERS: PCP Internal Medicine; Visit Provider Surgery Vascular Surgery | DX: I73.9 Peripheral vascular disease, unspecified (principal) | CPT/HCPCS: 99212 ==

== ENCOUNTER 2020-04-04 07:33 | Outpatient (REF) | payer MEDICARE, OTHER, SELFPAY ==
[2020-04-04 10:04] LABS: MANUAL DIFF FLAG NO
[2020-04-04 10:12] LABS: Basophils Absolute Auto 0.1 X10*3/uL (0.0-0.2); Basophils Percent Auto 0.8 % (0-2); Eosinophils Absolute Auto 0.2 X10*3/uL (0.0-0.4); Eosinophils Percent Auto 2.3 % (0-4); Hematocrit 41.8 % (42-52); Hemoglobin 13.8 g/dl (14.0-18.0); Imm Gran Abs Auto 0.02 X10*3/uL (0.00-0.03); Imm Gran Pct Auto 0.2 % (0.0-0.4); Lymphocytes Absolute Auto 2.4 X10*3/uL (1.2-4.9); Mean Corpuscular Hemoglobin 29.2 pg (27.0-33.0); Mean Corpuscular Volume 88.6 fL (80-98); Mean Platelet Volume 10.6 fL (9.4-12.4); Monocytes Absolute Auto 0.7 X10*3/uL (0.1-1.2); Monocytes Percent Auto 7.8 % (2-11); Neutrophils Absolute Auto 5.4 X10*3/uL (2.0-8.3); Neutrophils Percent Auto 61.9 % (45-73); Platelet Count 316 X10*3/uL (160-400); Red Blood Count 4.72 X10*6/uL (4.60-5.80); Red Cell Distribution Width 13.3 % (11.0-16.0); White Blood Count 8.7 X10*3/uL (4.8-10.8)
[2020-04-04 10:26] LABS: Estimated Average Glucose 203 mg/dL; Hemoglobin A1c % 8.7 %
[2020-04-04 10:48] LABS: Alanine Aminotransferase 14 U/L (0-40); Albumin Level 4.2 g/dL (3.5-5.0); Alkaline Phosphatase 90 U/L (39-117); Anion Gap 13 (12-20); Aspartate Amino Transferase 10 U/L (5-37); Bilirubin Total 1.4 mg/dL (0.0-1.0); Blood Urea Nitrogen 15 mg/dL (9-16); Calcium 9.2 mg/dL (8.4-10.2); Carbon Dioxide 25 mmol/L (22-29); Chloride 106 mmol/L (96-108); Estimated Glomerular Filt Rate > 60; Glucose Random 223 mg/dL (60-115); Potassium 4.2 mmol/L (3.3-5.1); Sodium 140 mmol/L (135-145); Total Protein 6.6 g/dL (6.5-8.0)
== END 2020-04-04 07:34 | disposition home or self-care (01) ==
LOC: HO.10HDL 07:33
PROVIDERS: Visit Provider Internal Medicine
DX: E11.9 Type 2 diabetes mellitus without complications (principal); J44.9 Chronic obstructive pulmonary disease, unspecified; I10 Essential (primary) hypertension; I73.9 Peripheral vascular disease, unspecified
CPT/HCPCS: 36415; 80053; 83036; 85025

== ENCOUNTER → 2020-04-29 09:20 | Outpatient (BNVA) | payer MEDICARE, OTHER, SELFPAY | PROVIDERS: PCP Internal Medicine; Visit Provider Internal Medicine | DX: J44.9 Chronic obstructive pulmonary disease, unspecified (principal) | CPT/HCPCS: 99212 ==

== ENCOUNTER 2020-08-08 06:10 | Outpatient (REF) | payer MEDICARE, OTHER, SELFPAY ==
[2020-08-08 07:38] LABS: MANUAL DIFF FLAG NO
[2020-08-08 07:43] LABS: Basophils Absolute Auto 0.1 X10*3/uL (0.0-0.2); Basophils Percent Auto 0.6 % (0-2); Eosinophils Absolute Auto 0.2 X10*3/uL (0.0-0.4); Eosinophils Percent Auto 2.1 % (0-4); Hematocrit 41.9 % (42-52); Hemoglobin 13.7 g/dl (14.0-18.0); Imm Gran Abs Auto 0.06 X10*3/uL (0.00-0.03); Imm Gran Pct Auto 0.6 % (0.0-0.4); Lymphocytes Absolute Auto 2.2 X10*3/uL (1.2-4.9); Mean Corpuscular HGB Conc 32.7 g/dl (31.0-36.0); Mean Corpuscular Hemoglobin 28.8 pg (27.0-33.0); Mean Platelet Volume 10.4 fL (9.4-12.4); Monocytes Absolute Auto 0.9 X10*3/uL (0.1-1.2); Monocytes Percent Auto 7.8 % (2-11); Neutrophils Absolute Auto 7.5 X10*3/uL (2.0-8.3); Neutrophils Percent Auto 68.9 % (45-73); Platelet Count 294 X10*3/uL (160-400); Red Blood Count 4.76 X10*6/uL (4.60-5.80); Red Cell Distribution Width 15.2 % (11.0-16.0); White Blood Count 10.8 X10*3/uL (4.8-10.8)
[2020-08-08 07:49] LABS: Estimated Average Glucose 140 mg/dL; Hemoglobin A1C 170.7899 umol/L; Hemoglobin A1c % 6.5 %
[2020-08-08 08:08] LABS: Alanine Aminotransferase 13 U/L (0-40); Albumin Level 4.2 g/dL (3.5-5.0); Alkaline Phosphatase 71 U/L (39-117); Anion Gap 12 (12-20); Aspartate Amino Transferase 13 U/L (5-37); Bilirubin Total 0.6 mg/dL (0.0-1.0); Blood Urea Nitrogen 22 mg/dL (9-16); Carbon Dioxide 23 mmol/L (22-29); Chloride 105 mmol/L (96-108); Estimated Glomerular Filt Rate 56; Glucose Random 218 mg/dL (60-115); Potassium 4.4 mmol/L (3.3-5.1); Sodium 136 mmol/L (135-145); Total Protein 6.6 g/dL (6.5-8.0)
[2020-08-08 08:14] LABS: Creatinine Urine 84.16 mg/dL; Microalbumin Urine < 5.0 mg/L
== END 2020-08-08 06:11 | disposition home or self-care (01) ==
LOC: HO.LAB 06:10
PROVIDERS: PCP Internal Medicine; Visit Provider Internal Medicine
DX: E11.9 Type 2 diabetes mellitus without complications (principal); I73.9 Peripheral vascular disease, unspecified; I10 Essential (primary) hypertension; J44.9 Chronic obstructive pulmonary disease, unspecified
CPT/HCPCS: 36415; 80053; 82043; 83036; 85025

== ENCOUNTER → 2020-09-12 09:16 | Outpatient (BNVA) | payer MEDICARE, OTHER, SELFPAY | PROVIDERS: PCP Internal Medicine; Visit Provider Internal Medicine | DX: J44.9 Chronic obstructive pulmonary disease, unspecified (principal); J96.01 Acute respiratory failure with hypoxia | CPT/HCPCS: 99212 ==

== ENCOUNTER 2020-12-13 06:32 | Outpatient (REF) | payer MEDICARE, OTHER, SELFPAY ==
[2020-12-13 06:43] LABS: MANUAL DIFF FLAG NO; Urine Cytology See Pathology rpt
[2020-12-13 07:12] LABS: Basophils Absolute Auto 0.1 X10*3/uL (0.0-0.2); Basophils Percent Auto 0.7 % (0-2); Eosinophils Absolute Auto 0.2 X10*3/uL (0.0-0.4); Eosinophils Percent Auto 2.8 % (0-4); Hematocrit 38.5 % (42-52); Hemoglobin 12.9 g/dl (14.0-18.0); Imm Gran Abs Auto 0.03 X10*3/uL (0.00-0.03); Imm Gran Pct Auto 0.4 % (0.0-0.4); Lymphocytes Absolute Auto 2.2 X10*3/uL (1.2-4.9); Lymphocytes Percent Auto 25.4 % (20-40); Mean Corpuscular HGB Conc 33.5 g/dl (31.0-36.0); Mean Corpuscular Volume 92.5 fL (80-98); Mean Platelet Volume 9.9 fL (9.4-12.4); Monocytes Absolute Auto 0.7 X10*3/uL (0.1-1.2); Monocytes Percent Auto 8.3 % (2-11); Neutrophils Absolute Auto 5.4 X10*3/uL (2.0-8.3); Neutrophils Percent Auto 62.4 % (45-73); Platelet Count 269 X10*3/uL (160-400); Red Blood Count 4.16 X10*6/uL (4.60-5.80); Red Cell Distribution Width 13.2 % (11.0-16.0); White Blood Count 8.6 X10*3/uL (4.8-10.8)
[2020-12-13 07:40] LABS: Alanine Aminotransferase 14 U/L (0-40); Albumin Level 4.1 g/dL (3.5-5.0); Alkaline Phosphatase 62 U/L (39-117); Anion Gap 12 (12-20); Aspartate Amino Transferase 12 U/L (5-37); Bilirubin Total 0.7 mg/dL (0.0-1.0); Blood Urea Nitrogen 14 mg/dL (9-16); Calcium 9.8 mg/dL (8.4-10.2); Carbon Dioxide 26 mmol/L (22-29); Chloride 105 mmol/L (96-108); Cholesterol 148 mg/dL; Estimated Glomerular Filt Rate > 60; Glucose Fasting 222 mg/dL (60-99); HDL Cholesterol 37 mg/dL; LDL Cholesterol Calculated 44 mg/dl; Potassium 4.5 mmol/L (3.3-5.1); Sodium 138 mmol/L (135-145); Total Protein 6.6 g/dL (6.5-8.0); Triglycerides 336 mg/dL
[2020-12-13 07:59] LABS: Appearance Urine CLEAR; Color Urine YELLOW; Glucose Urine UA >=1000 MG/DL (NEG); Leukocyte Esterase Urine NEG (NEG); Nitrite Urine NEG (NEG); Specific Gravity - Urine 1.025 (1.005-1.025); Urine Blood NEG (NEG); Urine Ketones 5 MG/DL (NEG); Urine Protein NEG (NEG-TRACE)
[2020-12-13 08:00] LABS: Prostate Specific Antigen Scr 2.56 ng/mL (<0.05-4.0)
[2020-12-13 08:34] LABS: Creatinine Urine 141.87 mg/dL; Microalbum/Creatinine Ratio Ur 4.2 ug/mg cr
[2020-12-13 08:41] LABS: Estimated Average Glucose 140 mg/dL; Hemoglobin A1c % 6.5 %
[2020-12-13 08:54] LABS: Granular Casts Urine 0-2 /LPF; RBC Urine 0 /HPF (0); WBC Urine 0 /HPF (0-4)
[2020-12-13 08:55] LABS: Calcium Oxalate Crystals Urine 1+ /LPF; Urine Talc Crystals TRACE /LPF
== END 2020-12-13 06:33 | disposition home or self-care (01) ==
LOC: HO.LAB 06:32
PROVIDERS: PCP Internal Medicine; Visit Provider Internal Medicine
DX: Z12.5 Encounter for screening for malignant neoplasm of prostate (principal); I25.10 Atherosclerotic heart disease of native coronary artery without angina pectoris; E78.00 Pure hypercholesterolemia, unspecified; E11.9 Type 2 diabetes mellitus without complications; N40.0 Benign prostatic hyperplasia without lower urinary tract symptoms; I73.9 Peripheral vascular disease, unspecified; R31.9 Hematuria, unspecified
CPT/HCPCS: 36415; 80053; 80061; 81001; 81003; 82043; 83036; 84153; 85025; 87086; 88112

== ENCOUNTER → 2021-03-13 09:22 | Outpatient (BNVA) | payer MEDICARE, OTHER, SELFPAY | PROVIDERS: PCP Internal Medicine; Visit Provider Internal Medicine | DX: J44.9 Chronic obstructive pulmonary disease, unspecified (principal); J96.01 Acute respiratory failure with hypoxia | CPT/HCPCS: 94010; 99212 ==

== ENCOUNTER 2021-04-10 06:28 | Outpatient (REF) | payer MEDICARE, OTHER, SELFPAY ==
--- NOTE | ~2021-04-10 | CT_ITS ---
EXAMINATION: CT CHEST SCREENING CLINICAL INFORMATION: Personal history of nicotine dependence. COMPARISON: CT chest 01/22/2020 TECHNIQUE: Multidetector volumetric CT imaging of the chest is performed without contrast using low dose technique. Additional 2D coronal and sagittal reformatted images and axial 3D maximum intensity projection (MIP) images are generated on the CT workstation. This CT examination was performed using dose optimization techniques as appropriate, variously including the following: *Automated exposure control *Adjustment of mA and/or kV according to patient size (this includes techniques or standardized protocols for targeted exams where dose is matched to indication/reason for exam; i.e. extremities or head) *Use of iterative reconstruction technique DLP: 76 mGy-cm FINDINGS: LUNGS: The lungs are well expanded without acute pneumonic consolidation. There are scattered calcified and noncalcified 1 mm micronodules throughout both lungs which are stable. Previously seen focal tree-in-bud opacity left upper lobe has resolved. No peribronchial thickening seen. There is no new finding. MEDIASTINUM: The thyroid lobes are symmetric and normal. The central trachea and the bronchi are widely patent. Heart size and the great vessels are normal caliber. There is no pericardial effusion. There are coronary artery calcifications present. There are small shotty mediastinal lymph nodes. No pericardial effusion seen. PLEURA: There is no pleural effusion. No pleural mass or thickening. AXILLA: No lymphadenopathy. UPPER ABDOMEN: Visualized liver, spleen, pancreas and bilateral adrenal glands are unremarkable. OSSEOUS STRUCTURES: No lytic or sclerotic process seen. CT/CT lung screening IMPRESSION: Resolved tree-in-bud appearance in the left upper lobe. Scattered 1 mm calcified and noncalcified micronodules are stable. ASSESSMENT: Lung-RADS category 2: Benign RECOMMENDATION: Low-dose annual CT chest
[2021-04-10 06:44] LABS: MANUAL DIFF FLAG NO
[2021-04-10 07:32] LABS: Basophils Absolute Auto 0.1 X10*3/uL (0.0-0.2); Basophils Percent Auto 0.6 % (0-2); Eosinophils Absolute Auto 0.3 X10*3/uL (0.0-0.4); Hematocrit 37.9 % (42.0-52.0); Hemoglobin 12.6 g/dl (14.0-18.0); Imm Gran Abs Auto 0.03 X10*3/uL (0.00-0.03); Imm Gran Pct Auto 0.4 % (0.0-0.4); Lymphocytes Absolute Auto 2.5 X10*3/uL (1.2-4.9); Lymphocytes Percent Auto 30.4 % (20-40); Mean Corpuscular HGB Conc 33.2 g/dl (31.0-36.0); Mean Corpuscular Hemoglobin 30.4 pg (27.0-33.0); Mean Corpuscular Volume 91.3 fL (80.0-98.0); Mean Platelet Volume 10.1 fL (9.4-12.4); Monocytes Percent Auto 11.7 % (2-11); Neutrophils Absolute Auto 4.4 x10*3/uL (2.0-8.3); Neutrophils Percent Auto 53.9 % (45-73); Platelet Count 314 X10*3/uL (160-400); Red Blood Count 4.15 X10*6/uL (4.60-5.80); Red Cell Distribution Width 13.2 % (11.0-16.0); White Blood Count 8.2 X10*3/uL (4.8-10.8)
[2021-04-10 07:56] LABS: Creatinine Urine 75.13 mg/dL; Microalbum/Creatinine Ratio Ur 6.6 ug/mg cr
[2021-04-10 07:59] LABS: Alanine Aminotransferase 14 U/L (0-40); Alkaline Phosphatase 46 U/L (39-117); Anion Gap 14 (12-20); Aspartate Amino Transferase 11 U/L (5-37); Bilirubin Total 0.7 mg/dL (0.0-1.0); Blood Urea Nitrogen 20 mg/dL (9-16); Calcium 10.2 mg/dL (8.4-10.2); Carbon Dioxide 25 mmol/L (22-29); Chloride 103 mmol/L (96-108); Cholesterol 128 mg/dL; Estimated Glomerular Filt Rate 50; Glucose Fasting 144 mg/dL (60-99); HDL Cholesterol 33 mg/dL; LDL Cholesterol Calculated 42 mg/dl; Sodium 137 mmol/L (135-145); Total Protein 6.6 g/dL (6.5-8.0); Triglycerides 268 mg/dL
[2021-04-10 08:43] LABS: Estimated Average Glucose 148 mg/dL; Hemoglobin A1c % 6.8 %
== END 2021-04-10 06:29 | disposition home or self-care (01) ==
LOC: HO.CT 06:28
PROVIDERS: PCP Internal Medicine; Visit Provider Physician Assistant Medical
DX: E78.5 Hyperlipidemia, unspecified (principal); J44.9 Chronic obstructive pulmonary disease, unspecified; I73.9 Peripheral vascular disease, unspecified; E11.9 Type 2 diabetes mellitus without complications; I10 Essential (primary) hypertension; Z87.891 Personal history of nicotine dependence
CPT/HCPCS: 36415; 71271; 80053; 80061; 82043; 83036; 85025

== ENCOUNTER → 2021-06-26 09:06 | Outpatient (BNVA) | payer MEDICARE, OTHER, SELFPAY | PROVIDERS: PCP Internal Medicine; Visit Provider Internal Medicine | DX: J44.9 Chronic obstructive pulmonary disease, unspecified (principal); E66.9 Obesity, unspecified; Z68.34 Body mass index [BMI] 34.0-34.9, adult | CPT/HCPCS: 99212 ==

== ENCOUNTER 2021-08-06 06:24 | Outpatient (REF) | payer MEDICARE, OTHER, SELFPAY ==
[2021-08-06 06:43] LABS: MANUAL DIFF FLAG NO
[2021-08-06 07:27] LABS: Basophils Percent Auto 0.4 % (0-2); Eosinophils Absolute Auto 0.2 X10*3/uL (0.0-0.4); Eosinophils Percent Auto 1.7 % (0-4); Hematocrit 39.2 % (42.0-52.0); Hemoglobin 12.8 g/dl (14.0-18.0); Imm Gran Abs Auto 0.07 X10*3/uL (0.00-0.03); Imm Gran Pct Auto 0.7 % (0.0-0.4); Lymphocytes Absolute Auto 1.4 X10*3/uL (1.2-4.9); Mean Corpuscular HGB Conc 32.7 g/dl (31.0-36.0); Mean Corpuscular Hemoglobin 30.5 pg (27.0-33.0); Mean Corpuscular Volume 93.3 fL (80.0-98.0); Mean Platelet Volume 10.1 fL (9.4-12.4); Monocytes Percent Auto 10.9 % (2-11); Neutrophils Absolute Auto 6.7 x10*3/uL (2.0-8.3); Neutrophils Percent Auto 71.3 % (45-73); Platelet Count 267 X10*3/uL (160-400); Red Cell Distribution Width 13.7 % (11.0-16.0); White Blood Count 9.3 X10*3/uL (4.8-10.8)
[2021-08-06 07:56] LABS: Estimated Average Glucose 157 mg/dL; Hemoglobin A1c % 7.1 %
[2021-08-06 08:10] LABS: Alanine Aminotransferase 15 U/L (0-40); Albumin Level 4.3 g/dL (3.5-5.0); Alkaline Phosphatase 55 U/L (39-117); Anion Gap 15 (12-20); Aspartate Amino Transferase 13 U/L (5-37); Bilirubin Total 1.4 mg/dL (0.0-1.0); Blood Urea Nitrogen 15 mg/dL (9-16); Calcium 9.7 mg/dL (8.4-10.2); Carbon Dioxide 24 mmol/L (22-29); Chloride 102 mmol/L (96-108); Estimated Glomerular Filt Rate 50; Glucose Random 248 mg/dL (60-115); Iron 117 mcg/dL (45-160); Percent Iron Saturation 33 % (15-50); Potassium 5.2 mmol/L (3.3-5.1); Sodium 136 mmol/L (135-145); Total Iron Binding Capacity 355 mcg/dL (228-428); Unsaturated Iron Binding 238 ug/dL
== END 2021-08-06 06:25 | disposition home or self-care (01) ==
LOC: HO.LAB 06:24
PROVIDERS: Absent Provider Surgery; PCP Internal Medicine; Visit Provider Internal Medicine
DX: I70.613 Atherosclerosis of nonbiological bypass graft(s) of the extremities with intermittent claudication, bilateral legs (principal); E11.22 Type 2 diabetes mellitus with diabetic chronic kidney disease; N18.9 Chronic kidney disease, unspecified; D64.9 Anemia, unspecified
CPT/HCPCS: 36415; 80053; 83036; 83540; 85025

== ENCOUNTER 2021-10-27 06:03 | Outpatient (REF) | payer MEDICARE, OTHER, SELFPAY ==
[2021-10-27 06:09] LABS: MANUAL DIFF FLAG NO
[2021-10-27 07:14] LABS: Basophils Absolute Auto 0.1 X10*3/uL (0.0-0.2); Basophils Percent Auto 0.9 % (0-2); Eosinophils Absolute Auto 0.2 X10*3/uL (0.0-0.4); Eosinophils Percent Auto 2.5 % (0-4); Hematocrit 39.6 % (42.0-52.0); Hemoglobin 12.9 g/dl (14.0-18.0); Imm Gran Abs Auto 0.03 X10*3/uL (0.00-0.03); Imm Gran Pct Auto 0.4 % (0.0-0.4); Lymphocytes Absolute Auto 2.6 X10*3/uL (1.2-4.9); Mean Corpuscular HGB Conc 32.6 g/dl (31.0-36.0); Mean Corpuscular Hemoglobin 30.4 pg (27.0-33.0); Mean Corpuscular Volume 93.2 fL (80.0-98.0); Mean Platelet Volume 10.4 fL (9.4-12.4); Monocytes Absolute Auto 0.8 X10*3/uL (0.1-1.2); Monocytes Percent Auto 10.5 % (2-11); Neutrophils Absolute Auto 4.1 x10*3/uL (2.0-8.3); Neutrophils Percent Auto 52.7 % (45-73); Platelet Count 298 X10*3/uL (160-400); Red Blood Count 4.25 X10*6/uL (4.60-5.80); Red Cell Distribution Width 13.3 % (11.0-16.0); White Blood Count 7.7 X10*3/uL (4.8-10.8)
[2021-10-27 07:25] LABS: Estimated Average Glucose 186 mg/dL; Hemoglobin A1c % 8.1 %
[2021-10-27 07:38] LABS: Alanine Aminotransferase 13 U/L (0-40); Albumin Level 4.2 g/dL (3.5-5.0); Alkaline Phosphatase 55 U/L (39-117); Anion Gap 18 (12-20); Aspartate Amino Transferase 12 U/L (5-37); Bilirubin Total 0.5 mg/dL (0.0-1.0); Blood Urea Nitrogen 13 mg/dL (9-16); Calcium 9.9 mg/dL (8.4-10.2); Carbon Dioxide 24 mmol/L (22-29); Chloride 103 mmol/L (96-108); Cholesterol 151 mg/dL; Estimated Glomerular Filt Rate 52; Glucose Fasting 248 mg/dL (60-99); HDL Cholesterol 34 mg/dL; LDL Cholesterol Calculated 45 mg/dl; Potassium 4.5 mmol/L (3.3-5.1); Sodium 140 mmol/L (135-145); Triglycerides 364 mg/dL
== END 2021-10-27 06:04 | disposition home or self-care (01) ==
LOC: HO.LAB 06:03
PROVIDERS: Visit Provider Internal Medicine
DX: I10 Essential (primary) hypertension (principal); J44.9 Chronic obstructive pulmonary disease, unspecified; E11.9 Type 2 diabetes mellitus without complications; I73.9 Peripheral vascular disease, unspecified
CPT/HCPCS: 36415; 80053; 80061; 83036; 85025

== ENCOUNTER 2021-11-14 09:16 | Outpatient (REF) | payer MEDICARE, OTHER, SELFPAY ==
--- NOTE | ~2021-11-14 | CT_ITS ---
EXAMINATION: CT ADRENAL WITHOUT, WITH AND DELAYED IMAGES CLINICAL INFORMATION: Neoplasm of right adrenal gland. COMPARISON: None TECHNIQUE: 3 mm thin axial without and with IV 85 mL Omnipaque 350 contrast was obtained through the upper abdomen. Delayed images were obtained 10 minutes later. 2 mm thin sagittal and coronal reconstructions were performed. DLP: 718 mGy-cm FINDINGS: The lung bases are clear. There is a small hiatal hernia. The liver is normal size, contour and density. No focal lesion or intrahepatic ductal dilatation seen. The gallbladder has been surgically removed. Visualized spleen and pancreas appears unremarkable. Both kidneys are normal size, shape and position. No radiopaque calculi seen on the visualized images. The left adrenal gland is unremarkable. The right adrenal gland measures 1 cm. On precontrast it measures 11 Hounsfield units. On postcontrast images it measures 58 Hounsfield units and on delayed images it measures 11 Hounsfield units. The absolute washout is 100% and relative washout is 81%. The above findings are consistent with an adenoma. CT/CT adrenal wo/w IV con IMPRESSION: 1 cm right adrenal adenoma. The left adrenal gland is unremarkable. Gallbladder has been surgically removed.
[2021-11-14] MEDS: iohexoL 350 MG/ML 100 ML INFUS..BTL 85 ML IV (10:30)
== END 2021-11-14 09:17 | disposition home or self-care (01) ==
LOC: HO.CT 09:16
PROVIDERS: Visit Provider Internal Medicine
DX: D44.11 Neoplasm of uncertain behavior of right adrenal gland (principal)
CPT/HCPCS: 74170; Q9967

== ENCOUNTER → 2022-01-13 09:17 | Outpatient (BNVA) | payer MEDICARE, OTHER, SELFPAY | PROVIDERS: PCP Internal Medicine; Visit Provider Internal Medicine | DX: J44.9 Chronic obstructive pulmonary disease, unspecified (principal); E66.9 Obesity, unspecified; Z68.34 Body mass index [BMI] 34.0-34.9, adult | CPT/HCPCS: 99212 ==

== ENCOUNTER 2022-01-29 10:42 | Outpatient (REF) | payer MEDICARE, OTHER, SELFPAY ==
[2022-01-29 13:40] LABS: MANUAL DIFF FLAG NO
[2022-01-29 13:45] LABS: Basophils Absolute Auto 0.1 X10*3/uL (0.0-0.2); Basophils Percent Auto 0.8 % (0-2); Eosinophils Absolute Auto 0.2 X10*3/uL (0.0-0.4); Eosinophils Percent Auto 2.1 % (0-4); Hematocrit 40.2 % (42.0-52.0); Hemoglobin 13.1 g/dl (14.0-18.0); Imm Gran Abs Auto 0.03 X10*3/uL (0.00-0.03); Imm Gran Pct Auto 0.3 % (0.0-0.4); Lymphocytes Percent Auto 21.8 % (20-40); Mean Corpuscular HGB Conc 32.6 g/dl (31.0-36.0); Mean Corpuscular Hemoglobin 29.6 pg (27.0-33.0); Mean Corpuscular Volume 90.7 fL (80.0-98.0); Mean Platelet Volume 10.6 fL (9.4-12.4); Monocytes Absolute Auto 0.6 X10*3/uL (0.1-1.2); Monocytes Percent Auto 7.1 % (2-11); Neutrophils Absolute Auto 6.1 x10*3/uL (2.0-8.3); Neutrophils Percent Auto 67.9 % (45-73); Platelet Count 304 X10*3/uL (160-400); Red Blood Count 4.43 X10*6/uL (4.60-5.80); Red Cell Distribution Width 13.2 % (11.0-16.0)
[2022-01-29 13:53] LABS: Estimated Average Glucose 212 mg/dL
[2022-01-29 14:23] LABS: Alanine Aminotransferase 16 U/L (0-40); Albumin Level 4.2 g/dL (3.5-5.0); Alkaline Phosphatase 61 U/L (39-117); Anion Gap 12 (12-20); Aspartate Amino Transferase 12 U/L (5-37); Blood Urea Nitrogen 14 mg/dL (9-16); Calcium 9.8 mg/dL (8.4-10.2); Carbon Dioxide 26 mmol/L (22-29); Chloride 100 mmol/L (96-108); Estimated Glomerular Filt Rate 51; Glucose Random 253 mg/dL (60-115); Iron 92 mcg/dL (45-160); Percent Iron Saturation 28 % (15-50); Potassium 4.8 mmol/L (3.3-5.1); Sodium 133 mmol/L (135-145); Total Iron Binding Capacity 324 mcg/dL (228-428); Total Protein 6.7 g/dL (6.5-8.0); Unsaturated Iron Binding 232 ug/dL
== END 2022-01-29 10:43 | disposition home or self-care (01) ==
LOC: HO.10HDL 10:42
PROVIDERS: Visit Provider Internal Medicine
DX: I48.0 Paroxysmal atrial fibrillation (principal); J44.9 Chronic obstructive pulmonary disease, unspecified; E11.9 Type 2 diabetes mellitus without complications; N18.9 Chronic kidney disease, unspecified
CPT/HCPCS: 36415; 80053; 83036; 83540; 85025

== ENCOUNTER 2022-04-30 10:47 | Outpatient (REF) | payer MEDICARE, OTHER, SELFPAY ==
[2022-04-30 14:04] LABS: MANUAL DIFF FLAG NO
[2022-04-30 14:22] LABS: Basophils Absolute Auto 0.1 X10*3/uL (0.0-0.2); Basophils Percent Auto 0.7 % (0-2); Eosinophils Absolute Auto 0.1 X10*3/uL (0.0-0.4); Eosinophils Percent Auto 1.1 % (0-4); Hematocrit 41.1 % (42.0-52.0); Hemoglobin 13.6 g/dl (14.0-18.0); Imm Gran Abs Auto 0.04 X10*3/uL (0.00-0.03); Imm Gran Pct Auto 0.5 % (0.0-0.4); Lymphocytes Absolute Auto 1.9 X10*3/uL (1.2-4.9); Lymphocytes Percent Auto 25.9 % (20-40); Mean Corpuscular HGB Conc 33.1 g/dl (31.0-36.0); Mean Corpuscular Hemoglobin 30.3 pg (27.0-33.0); Mean Corpuscular Volume 91.5 fL (80.0-98.0); Mean Platelet Volume 10.6 fL (9.4-12.4); Monocytes Absolute Auto 0.6 X10*3/uL (0.1-1.2); Monocytes Percent Auto 7.9 % (2-11); Neutrophils Absolute Auto 4.8 x10*3/uL (2.0-8.3); Neutrophils Percent Auto 63.9 % (45-73); Platelet Count 311 X10*3/uL (160-400); Red Blood Count 4.49 X10*6/uL (4.60-5.80); White Blood Count 7.5 X10*3/uL (4.8-10.8)
[2022-04-30 14:34] LABS: Estimated Average Glucose 186 mg/dL; Hemoglobin A1c % 8.1 %
[2022-04-30 16:33] LABS: Alanine Aminotransferase 14 U/L (0-40); Albumin Level 4.1 g/dL (3.5-5.0); Alkaline Phosphatase 52 U/L (39-117); Anion Gap 18 (12-20); Aspartate Amino Transferase 13 U/L (5-37); Bilirubin Total 1.2 mg/dL (0.0-1.0); Blood Urea Nitrogen 15 mg/dL (9-16); Calcium 9.5 mg/dL (8.4-10.2); Carbon Dioxide 20 mmol/L (22-29); Chloride 106 mmol/L (96-108); Estimated Glomerular Filt Rate 55; Glucose Random 190 mg/dL (60-115); Potassium 4.6 mmol/L (3.3-5.1); Sodium 139 mmol/L (135-145); Total Protein 6.7 g/dL (6.5-8.0)
== END 2022-04-30 10:48 | disposition home or self-care (01) ==
LOC: HO.10HDL 10:47
PROVIDERS: Visit Provider Internal Medicine
DX: I25.10 Atherosclerotic heart disease of native coronary artery without angina pectoris (principal); E11.22 Type 2 diabetes mellitus with diabetic chronic kidney disease; E11.51 Type 2 diabetes mellitus with diabetic peripheral angiopathy without gangrene; N18.9 Chronic kidney disease, unspecified; D63.1 Anemia in chronic kidney disease
CPT/HCPCS: 36415; 80053; 83036; 85025

== ENCOUNTER 2022-05-22 09:16 | Outpatient (REF) | payer MEDICARE, OTHER, SELFPAY ==
--- NOTE | ~2022-05-22 | CT_ITS ---
EXAMINATION: LUNG CANCER SCREENING CT CHEST WITHOUT CONTRAST CLINICAL INFORMATION: Former smoker with 56 pack year history, quit 5 years ago COMPARISON: 04/10/2021 TECHNIQUE: Multidetector volumetric CT imaging of the chest was obtained noncontrast using low dose screening CT technique. Axial thin section 0.625 mm reformations in soft tissue and lung windows were obtained. Sagittal and coronal reformations were obtained. Axial MIP images were also created and reviewed. This CT examination was performed using dose optimization techniques as appropriate, variously including the following: *Automated exposure control *Adjustment of mA and/or kV according to patient size (this includes techniques or standardized protocols for targeted exams where dose is matched to indication/reason for exam; i.e. extremities or head) *Use of iterative reconstruction technique TOTAL EXAM DLP: 76 mGy-cm. FINDINGS: PULMONARY NODULES: No suspicious pulmonary nodules. End seen are several tiny scattered bilateral calcified granulomata. LUNGS / PLEURA: Mild upper lobe predominant centrilobular emphysema. Diffuse mild bronchial wall thickening without bronchiectasis. No pleural effusion or pneumothorax. MEDIASTINUM / BALTA: Heart normal in size without pericardial effusion. Great vessels normal caliber. No lymphadenopathy. Coronary calcifications present. Imaged thyroid gland unremarkable. CHEST WALL / AXILLA: Unremarkable. UPPER ABDOMEN: Mild hepatic steatosis. Stable 1 cm benign right adrenal adenoma, previously characterized. No follow-up imaging recommended. OSSEOUS STRUCTURES: No acute or suspicious osseous abnormalities. CT/CT lung screening IMPRESSION: * No evidence of pulmonary malignancy. * Minimal emphysema and chronic airways disease. ASSESSMENT: Lung RADS category: 2. Benign appearance or behavior. Nodules with a very low likelihood of becoming a clinically active cancer due to size or lack of growth. Continue annual screening with low-dose CT in 12 months. Probability of malignancy less than 1%. INCIDENTAL FINDINGS (S CATEGORY): None. RECOMMENDATION: Follow up low dose CT chest in 1 year.
== END 2022-05-22 09:17 | disposition home or self-care (01) ==
LOC: HO.CT 09:16
PROVIDERS: PCP Internal Medicine; Visit Provider Physician Assistant Medical
DX: Z12.2 Encounter for screening for malignant neoplasm of respiratory organs (principal); Z87.891 Personal history of nicotine dependence
CPT/HCPCS: 71271

== ENCOUNTER → 2022-07-07 09:17 | Outpatient (BNVA) | payer MEDICARE, OTHER, SELFPAY | PROVIDERS: PCP Internal Medicine; Visit Provider Internal Medicine | DX: J44.9 Chronic obstructive pulmonary disease, unspecified (principal); E66.9 Obesity, unspecified; Z68.32 Body mass index [BMI] 32.0-32.9, adult | CPT/HCPCS: 99212 ==

== ENCOUNTER 2022-08-10 09:37 | Outpatient (REF) | payer MEDICARE, OTHER, SELFPAY ==
[2022-08-10 10:29] LABS: MANUAL DIFF FLAG NO
[2022-08-10 10:33] LABS: Basophils Absolute Auto 0.1 X10*3/uL (0.0-0.2); Basophils Percent Auto 0.7 % (0-2); Eosinophils Absolute Auto 0.1 X10*3/uL (0.0-0.4); Eosinophils Percent Auto 1.7 % (0-4); Hematocrit 40.4 % (42.0-52.0); Hemoglobin 13.3 g/dl (14.0-18.0); Imm Gran Abs Auto 0.04 X10*3/uL (0.00-0.03); Imm Gran Pct Auto 0.5 % (0.0-0.4); Lymphocytes Absolute Auto 1.7 X10*3/uL (1.2-4.9); Lymphocytes Percent Auto 20.2 % (20-40); Mean Corpuscular HGB Conc 32.9 g/dl (31.0-36.0); Mean Corpuscular Hemoglobin 30.6 pg (27.0-33.0); Mean Corpuscular Volume 92.9 fL (80.0-98.0); Mean Platelet Volume 10.3 fL (9.4-12.4); Monocytes Absolute Auto 0.7 X10*3/uL (0.1-1.2); Monocytes Percent Auto 8.3 % (2-11); Neutrophils Absolute Auto 5.7 x10*3/uL (2.0-8.3); Neutrophils Percent Auto 68.6 % (45-73); Platelet Count 294 X10*3/uL (160-400); Red Blood Count 4.35 X10*6/uL (4.60-5.80); White Blood Count 8.3 X10*3/uL (4.8-10.8)
[2022-08-10 10:48] LABS: Estimated Average Glucose 160 mg/dL; Hemoglobin A1C 199.6916 umol/L; Hemoglobin A1c % 7.2 %
[2022-08-10 11:00] LABS: Alanine Aminotransferase 11 U/L (0-40); Albumin Level 4.2 g/dL (3.5-5.0); Alkaline Phosphatase 61 U/L (39-117); Anion Gap 15 (12-20); Aspartate Amino Transferase 10 U/L (5-37); Blood Urea Nitrogen 19 mg/dL (9-16); Calcium 9.6 mg/dL (8.4-10.2); Carbon Dioxide 22 mmol/L (22-29); Chloride 105 mmol/L (96-108); Estimated Glomerular Filt Rate 50; Potassium 4.7 mmol/L (3.3-5.1); Sodium 137 mmol/L (135-145); Total Protein 6.9 g/dL (6.5-8.0)
[2022-08-10 11:02] LABS: Glucose Random 371 mg/dL (60-115)
== END 2022-08-10 09:38 | disposition home or self-care (01) ==
LOC: HO.10HDL 09:37
PROVIDERS: Visit Provider Internal Medicine
DX: E11.9 Type 2 diabetes mellitus without complications (principal); I73.9 Peripheral vascular disease, unspecified; I48.0 Paroxysmal atrial fibrillation; D64.9 Anemia, unspecified; N18.9 Chronic kidney disease, unspecified
CPT/HCPCS: 36415; 80053; 83036; 85025

== ENCOUNTER → 2022-08-12 11:18 | Outpatient (BNVA) | payer MEDICARE, OTHER, SELFPAY | PROVIDERS: PCP Internal Medicine; Referring Provider Internal Medicine; Visit Provider Surgery | DX: L72.3 Sebaceous cyst (principal) | CPT/HCPCS: 99202 ==

== ENCOUNTER → 2022-08-21 10:57 | Outpatient (BNVA) | payer MEDICARE, OTHER, SELFPAY | PROVIDERS: PCP Internal Medicine; Visit Provider Surgery | DX: L72.3 Sebaceous cyst (principal) | CPT/HCPCS: 99212 ==

== ENCOUNTER 2022-12-01 06:02 | Outpatient (REF) | payer MEDICARE, OTHER, SELFPAY ==
[2022-12-01 06:22] LABS: MANUAL DIFF FLAG NO
[2022-12-01 07:24] LABS: Basophils Absolute Auto 0.1 X10*3/uL (0.0-0.2); Basophils Percent Auto 0.7 % (0-2); Eosinophils Absolute Auto 0.3 X10*3/uL (0.0-0.4); Hemoglobin 13.6 g/dl (14.0-18.0); Imm Gran Abs Auto 0.03 X10*3/uL (0.00-0.03); Imm Gran Pct Auto 0.4 % (0.0-0.4); Lymphocytes Absolute Auto 2.4 X10*3/uL (1.2-4.9); Lymphocytes Percent Auto 29.4 % (20-40); Mean Corpuscular Volume 91.1 fL (80.0-98.0); Mean Platelet Volume 10.1 fL (9.4-12.4); Monocytes Absolute Auto 0.7 X10*3/uL (0.1-1.2); Neutrophils Absolute Auto 4.7 x10*3/uL (2.0-8.3); Neutrophils Percent Auto 57.5 % (45-73); Platelet Count 325 X10*3/uL (160-400); Red Blood Count 4.39 X10*6/uL (4.60-5.80); Red Cell Distribution Width 12.8 % (11.0-16.0); White Blood Count 8.2 X10*3/uL (4.8-10.8)
[2022-12-01 07:31] LABS: Estimated Average Glucose 214 mg/dL; Hemoglobin A1c % 9.1 % (<6.0)
[2022-12-01 07:40] LABS: Alanine Aminotransferase 14 U/L (0-40); Albumin Level 3.9 g/dL (3.5-5.0); Alkaline Phosphatase 57 U/L (39-117); Anion Gap 14 (12-20); Aspartate Amino Transferase 13 U/L (5-37); Bilirubin Total 0.7 mg/dL (0.0-1.0); Blood Urea Nitrogen 16 mg/dL (9-16); Calcium 9.8 mg/dL (8.4-10.2); Carbon Dioxide 25 mmol/L (22-29); Chloride 103 mmol/L (96-108); Cholesterol 152 mg/dL (<200); Estimated Glomerular Filt Rate 52; Glucose Fasting 235 mg/dL (60-99); HDL Cholesterol 32 mg/dL (>40); LDL Cholesterol Calculated 61 mg/dL (<100); Potassium 4.3 mmol/L (3.3-5.1); Sodium 138 mmol/L (135-145); Total Protein 6.8 g/dL (6.5-8.0); Triglycerides 295 mg/dL (<150)
[2022-12-01 07:59] LABS: Prostate Specific Antigen 1.93 ng/mL (<0.05-4.0)
[2022-12-01 10:20] LABS: Microalbum/Creatinine Ratio Ur 4.4 ug/mg cr (<30)
== END 2022-12-01 06:03 | disposition home or self-care (01) ==
LOC: HO.LAB 06:02
PROVIDERS: PCP Internal Medicine; Visit Provider Internal Medicine
DX: E11.9 Type 2 diabetes mellitus without complications (principal); I48.0 Paroxysmal atrial fibrillation; I10 Essential (primary) hypertension; E78.00 Pure hypercholesterolemia, unspecified; R35.1 Nocturia; Z12.5 Encounter for screening for malignant neoplasm of prostate
CPT/HCPCS: 36415; 80053; 80061; 82043; 82570; 83036; 84153; 85025

== ENCOUNTER 2022-12-15 06:33 | Day surgery (SDC) | payer MEDICARE, OTHER, SELFPAY ==
--- NOTE | 2022-12-14 08:46 | HO.ANESPROP2 ---
Documented by User: Marina Mendiola NP 12/14/22 08:47 HPI - Anesthesia Eval Consult details Narrative: 72yo M for Colonoscopy [facility] Active Problems Active Problems: All Active Problems (Updated 07/07/22 @ 09:51 by Sangita Naidu MD) Sebaceous cyst (Acute) Adenoma of right adrenal gland (Acute) Personal history of nicotine dependence (Acute) Obesity (BMI 30-39.9) (Acute) COPD (chronic obstructive pulmonary disease) (Acute) Uncontrolled diabetes mellitus (Acute) PAD (peripheral artery disease) (Acute) Bronchitis (Acute) Past Medical History Medical History Bronchitis COPD (chronic obstructive pulmonary disease) DM2 (diabetes mellitus, type 2) Femoral-popliteal bypass graft occlusion (~01/2020) HTN (hypertension) Hyperlipidemia Obesity (BMI 30-39.9) PAD (peripheral artery disease) Personal history of nicotine dependence PVD (peripheral vascular disease) Tubular adenoma of colon (~2002) Family History Family History Father No problems noted. Mother No problems noted. Surgical History Surgical History History of colonoscopy (~2019) History of femoral angiogram (~2018) History of femoropopliteal bypass (~2019) History of laparoscopic cholecystectomy (~2006) History of laryngoscopy (~2003) History of tonsillectomy History of vasectomy (~1996) Social History Social History Household Members: Children Housing: House Patient Tobacco Use Status: Former Tobacco user Years Smoked: 56 Are you DNR?: No Advance Directives: No Advance Directives Information Provided: Yes Nutrition Risks: No Nutritional Risk service: No Current occupational status: retired Meds Allergies Allergy/AdvReac Type Severity Reaction Status Date / Time morphine [MORPHINE] AdvReac Intermediate VOMITING Verified 12/15/22 06:57 Home Medications Medication Instructions Recorded Confirmed Last Taken Type aspirin 81 mg tablet,delayed 81 mg PO DAILY 01/22/20 12/15/22 12/11/22 History release (Adult Low Dose Aspirin) carvedilol 6.25 mg tablet (Coreg) 6.25 mg PO BID 01/22/20 12/15/22 Unknown History gabapentin 300 mg capsule 300 mg PO BID 01/22/20 12/15/22 Unknown History lisinopril 5 mg tablet 5 mg PO DAILY 01/22/20 12/15/22 Unknown History metformin 500 mg tablet,extended 1 tab PO BIDWM 01/29/20 12/15/22 Unknown History release 24 hr simvastatin 20 mg tablet 20 mg PO BEDTIME 02/05/20 12/15/22 Unknown History blood sugar diagnostic #10 ea 02/22/20 06/26/21 Unknown History insulin aspart U-100 100 unit/mL unit subcut DIRECTED 02/22/20 06/26/21 Unknown History (3 mL) subcutaneous pen pen needle, diabetic 32 gauge x #50 ea 02/22/20 06/26/21 Unknown History glipizide 5 mg tablet, extended 5 mg PO DAILY 09/12/20 12/15/22 Unknown History release 24 hr sildenafil 50 mg tablet mg PO DIRECTED 09/12/20 06/26/21 Unknown History fenofibrate 160 mg tablet 160 mg PO DAILY 03/13/21 12/15/22 Unknown History cilostazol 100 mg tablet 100 mg PO ONCE 06/26/21 12/15/22 12/11/22 History Exam Exam Date and Time: December 14, 2022 0846 Pertinent Lab Results Pertinent Lab Results: Laboratory Tests 12/01/22 06:20 WBC 8.2 Hgb 13.6 L Hct 40.0 L Plt Count 325 Sodium 138 Potassium 4.3 Chloride 103 Carbon Dioxide 25 BUN 16 Creatinine 1.35 Documented by User: Olaf Taylor MD 12/15/22 08:26 [facility] Past Medical History Medical History Bronchitis COPD (chronic obstructive pulmonary disease) DM2 (diabetes mellitus, type 2) Femoral-popliteal bypass graft occlusion (~01/2020) HTN (hypertension) Hyperlipidemia Obesity (BMI 30-39.9) PAD (peripheral artery disease) Personal history of nicotine dependence PVD (peripheral vascular disease) Tubular adenoma of colon (~2002) Family History Family History Father No problems noted. Mother No problems noted. Family history of problems with anesthesia: No Surgical History Surgical History History of colonoscopy (~2019) History of femoral angiogram (~2018) History of femoropopliteal bypass (~2019) History of laparoscopic cholecystectomy (~2006) History of laryngoscopy (~2003) History of tonsillectomy History of vasectomy (~1996) History of Problems with Anesthesia: No Social History Social History Household Members: Children Housing: House Patient Tobacco Use Status: Former Tobacco user Years Smoked: 56 Are you DNR?: No Advance Directives: No Advance Directives Information Provided: Yes Nutrition Risks: No Nutritional Risk service: No Current occupational status: retired [employer] Allergies Allergy/AdvReac Type Severity Reaction Status Date / Time morphine [MORPHINE] AdvReac Intermediate VOMITING Verified 12/15/22 06:57 Home Medications Medication Instructions Recorded Confirmed Last Taken Type aspirin 81 mg tablet,delayed 81 mg PO DAILY 01/22/20 12/15/22 12/11/22 History release (Adult Low Dose Aspirin) carvedilol 6.25 mg tablet (Coreg) 6.25 mg PO BID 01/22/20 12/15/22 Unknown History gabapentin 300 mg capsule 300 mg PO BID 01/22/20 12/15/22 Unknown History lisinopril 5 mg tablet 5 mg PO DAILY 01/22/20 12/15/22 Unknown History metformin 500 mg tablet,extended 1 tab PO BIDWM 01/29/20 12/15/22 Unknown History release 24 hr simvastatin 20 mg tablet 20 mg PO BEDTIME 02/05/20 12/15/22 Unknown History blood sugar diagnostic #10 ea 02/22/20 06/26/21 Unknown History insulin aspart U-100 100 unit/mL unit subcut DIRECTED 02/22/20 06/26/21 Unknown History (3 mL) subcutaneous pen pen needle, diabetic 32 gauge x #50 ea 02/22/20 06/26/21 Unknown History glipizide 5 mg tablet, extended 5 mg PO DAILY 09/12/20 12/15/22 Unknown History release 24 hr sildenafil 50 mg tablet mg PO DIRECTED 09/12/20 06/26/21 Unknown History fenofibrate 160 mg tablet 160 mg PO DAILY 03/13/21 12/15/22 Unknown History cilostazol 100 mg tablet 100 mg PO ONCE 06/26/21 12/15/22 12/11/22 History Exam Airway Mallampati Class: II TM Dist: <=3cm Neck ROM: Full Denture: Upper Heart: ok Lungs: ok Assessment and Plan Assessment Anesthesia Assessment: Anesthesia Plan Discussed and Chart Reviewed Final Anesthetic Review Family History of Problems with Anesthesia: No History of Problems with Anesthesia: No NPO: Yes ASA Class: III Final Preanesthetic Review: No Changes in Pt Med Stat, Meds/Allgs Chart Reviewed, Consent Obtained/Reviewed and Anes Risks/Benef Reviewed Patient Risk: High Procedure Risk: Low Anesthetic Plan Anesthetic Plan: MAC: and Agree w/ Assess. and Plan Disposition: Standard PACU
[2022-12-15 06:03] VITALS: BMI 34.7
[2022-12-15] MEDS: Lactated Ringers 1,000 ML 100 ML IVCONT (07:16)
[2022-12-15 07:22] VITALS: BP 153/68; PULSE 93; RESP 18; TEMP 36.7; O2SAT 96
[2022-12-15 07:27] LABS: Glucose, Whole Blood 259 mg/dL (60-115)
--- NOTE | 2022-12-15 07:34 | PC.NURSE ---
Dr. Taylor aware of POC. Okay to proceed, no interventions at this time.
--- NOTE | 2022-12-15 08:13 | MHC.SHP ---
Pre-Procedural Eval Section A Date of Service: 12/15/22 Section B Chief Complaint: screening Details of Present Illness: see H&P no changes Relevant Family History (Specify if Yes): No Relevant Social History: None Present Medications: None Medical History: No relevant PMH History of Previous Operations: No relevant previous surgery Allergies: Allergies Allergy/AdvReac Type Severity Reaction Status Date / Time morphine [MORPHINE] AdvReac Intermediate VOMITING Verified 12/15/22 06:57 Review of Systems Sugical H&P ROS: Negative: Constitution, Cardiovascular, Respiratory, Neurological, Psychiatric, Hem-Onc, Allergic/Immunologic, Gastrointestinal, Genitourinary, Musculoskeletal, Integumentary, Endocrine and Eyes/Ears/Nose/Throat Exam Surgical H&P Exam: Normal: HEENT, Normal: Heart, Normal: Lungs, Normal: Extremities, Normal: Abdomen, Normal: Skin and Normal: Neurological Plan Diagnosis/Plan: Unchanged I have reviewed the history and physical and performed a pertinent physical examination on my patient. No changes have occurred unless specified. Time Spent With Patient Time: Total time managing care of this patient today ____ minutes.
--- NOTE | 2022-12-15 08:50 | PM.OP ---
Brief Operative Note Date of Service: 12/15/22 Pre-op diagnosis: screening Post-op diagnosis: same Surgeon: Quincy Boateng MD Anesthesia: MAC Was an [employer] Specialist used for this Procedure?: No Estimated blood loss (mL): 2 Pathology: other Condition: stable Disposition: PACU
[2022-12-15 08:54] VITALS: BP 104/45; PULSE 89; RESP 18; TEMP 36.1; O2SAT 93
[2022-12-15 09:09] VITALS: BP 113/52; PULSE 77; RESP 16; TEMP 36.1; O2SAT 95
--- NOTE | 2022-12-15 09:57 | OP_ITS ---
DATE OF SERVICE: 12/15/2022 SURGEON: Quincy Boateng MD INDICATIONS: Colon cancer screening and prior history of adenomatous colon polyps. PREOPERATIVE DIAGNOSIS: POSTOPERATIVE DIAGNOSIS: PROCEDURE PERFORMED: Colonoscopy to the cecum with biopsy. ESTIMATED BLOOD LOSS: COMPLICATIONS: ANESTHESIA: Monitored anesthesia care. ASSISTANTS: SPECIMENS: DESCRIPTION OF PROCEDURE: A history and physical was performed. The risks and benefits of the procedure were explained to the patient and informed consent was obtained. The patient was placed in the left lateral decubitus position. A digital rectal exam was performed and was found to be normal. The Olympus pediatric video colonoscope was introduced into the rectum and advanced to the cecum. The cecum was identified by transillumination, palpation, identification of ileocecal valve. Examination was performed. The scope was removed. He tolerated the procedure well and was returned to the recovery area in stable condition. FINDINGS: The terminal ileum was not examined. The visualized colonic mucosa was normal. The quality of prep was good. Three polyps were identified. All were less than 10 mm and removed with biopsy forceps. These were located in the cecum 50 cm and 20 cm. There was mild sigmoid diverticulosis. Retroflexed examination showed small internal hemorrhoids. IMPRESSION: Colon polyps. RECOMMENDATION: Follow up the biopsy results. MD HUI Barrera/DOMINICKL / [id number]
== END 2022-12-15 09:44 | disposition home or self-care (01) ==
PROVIDERS: PCP Internal Medicine; Visit Provider Internal Medicine Gastroenterology
PROC: 0DJD8ZZ Inspection of Lower Intestinal Tract, Via Natural or Artificial Opening Endoscopic (ICD-10-PCS; CPT 45378; principal; 2022-12-15 08:10)
DX: Z12.11 Encounter for screening for malignant neoplasm of colon (principal); Z86.010 Personal history of colon polyps; D12.0 Benign neoplasm of cecum; K63.5 Polyp of colon; K57.30 Diverticulosis of large intestine without perforation or abscess without bleeding; K64.8 Other hemorrhoids; I10 Essential (primary) hypertension; E11.9 Type 2 diabetes mellitus without complications; E78.00 Pure hypercholesterolemia, unspecified; J44.9 Chronic obstructive pulmonary disease, unspecified; I73.9 Peripheral vascular disease, unspecified; Z79.02 Long term (current) use of antithrombotics/antiplatelets; Z79.51 Long term (current) use of inhaled steroids; Z79.82 Long term (current) use of aspirin; Z79.84 Long term (current) use of oral hypoglycemic drugs; Z79.899 Other long term (current) drug therapy; Z88.5 Allergy status to narcotic agent; Z98.890 Other specified postprocedural states
CPT/HCPCS: 45380; 82947; 88305; J3010

== ENCOUNTER 2022-12-31 09:26 | Outpatient (AMB) | payer MEDICARE, OTHER, SELFPAY ==
[2022-12-31 09:37] VITALS: BP 118/60; PULSE 94; O2SAT 94; BMI 34.7
--- NOTE | 2022-12-31 09:37 | A.OFFVIS_ITS ---
Intake Vital Signs 12/31/22 09:37 Height 5 ft 9 in Weight 235 lb BMI 34.7 BP 118/60 Blood Pressure Location Lt brachial Position Sitting Pulse 94 Pulse Source Pulse Oximeter Pulse Oximetry (%) 94 Oxygen Delivery Method Room Air Intake Visit Reasons: COPD Intake Note: pt is here for follow up and states his breathing is doing well, and he is on singular, does he need this? Physician General Practice Required: No Allergies No Known Allergies Allergy (Verified 12/31/22 09:49) Medication List - Last Reconciled 12/31/22 by Sangita Naidu MD albuterol sulfate 90 mcg/actuation 2 puffs inhalation QID PRN apixaban (Eliquis) 2.5 mg PO BID aspirin (Adult Low Dose Aspirin) 81 mg PO DAILY blood sugar diagnostic As directed Breo Ellipta 200-25 mcg/dose (fluticasone furoate-vilanterol) 1 inh inhalation DAILY NS carvedilol (Coreg) 6.25 mg PO BID cilostazol 100 mg PO ONCE fenofibrate 160 mg PO DAILY gabapentin 300 mg PO BID glipizide ER 5 mg PO DAILY insulin aspart U-100 units subcut DIRECTED insulin glargine (Basaglar KwikPen U-100 Insulin) 20 units (0.2 mL) subcut BEDTIME 30 days insulin lispro (Humalog U-100 Insulin) Less than 110 (units): 0 111 to 150 - units: 0 151 to 200 - units: 2 201 to 250 - units:4 251 to 300 - units:6 301 to 350 - units: 8 350 - units:10 ipratropium-albuterol 0.5 mg-3 mg(2.5 mg base)/3 mL 3 mL inhalation QID PRN 30 days lisinopril 5 mg PO DAILY metformin ER 1 tab PO BIDWM montelukast 10 mg PO DAILY pen needle, diabetic As directed sildenafil mg PO DIRECTED simvastatin 20 mg PO BEDTIME Do you need a note to return to daycare/school/sports/work: No HPI COPD HPI Details 72 YEARS OLD VERY PLEASANT GENTLEMAN IS HERE FOR 6 MONTHS FOLLOW-UP FOR HIS CHRONIC OBSTRUCTIVE PULMONARY DISEASE. HE IS A PAST SMOKER, IN ADDITION TO CHRONIC OBSTRUCTIVE PULMONARY DISEASE HE ALSO HAS ADVANCED PERIPHERAL VASCULAR DISEASE. PULMONARY BAI DOING VERY WELL AND HE HAS HAD NO ACUTE ATTACKS OF WHEEZING OR COUGH. HE USED TO HAVE SOME NASAL CONGESTION WITH POSTNASAL DRIP, AND HAS BEEN USING MONTELUKAST 10 MG DAILY FOR THE LAST 1 YEAR, HE WONDERS IF HE STILL NEEDS IT . HE CONTINUES TO LOSE WEIGHT SLOWLY. [facility] Medical History Personal history of nicotine dependence Obesity (BMI 30-39.9) COPD (chronic obstructive pulmonary disease) Bronchitis Femoral-popliteal bypass graft occlusion (~01/2020) PVD (peripheral vascular disease) Tubular adenoma of colon (~2002) Hyperlipidemia HTN (hypertension) DM2 (diabetes mellitus, type 2) PAD (peripheral artery disease) Surgical History History of femoropopliteal bypass (~2019) History of laryngoscopy (~2003) History of vasectomy (~1996) History of colonoscopy (~2019) History of laparoscopic cholecystectomy (~2006) History of tonsillectomy History of femoral angiogram (~2018) Family History Father No problems noted. Mother No problems noted. Social History Household Members: Children Housing: House Patient Tobacco Use Status: Former Tobacco user Years Smoked: 56 service: No Current occupational status: retired Review of Systems Const All systems reviewed & are unremarkable except as noted in HPI and below Eyes Reports no additional complaints ENT Reports nasal congestion (Mild off and on ) Card Denies chest pain, Denies irregular heart rhythm and Denies leg edema Resp Reports as per HPI GI Reports no additional complaints Reports erectile dysfunction Musc Reports no additional complaints Skin/Breast Reports system reviewed and no additional complaints, except as documented Neuro Reports no additional complaints Psych Reports no additional complaints Physical Exam Vital Signs: Last Vital Signs Pulse 94 12/31/22 09:37 BP 118/60 12/31/22 09:37 Pulse Ox 94 12/31/22 09:37 Oxygen Delivery Method Room Air 12/31/22 09:37 BMI result Body Mass Index 34.7 Const General: comfortable, no acute distress, alert and awake Orientation/consciousness: patient oriented x3 HEENT Head: Yes normal to inspection General nose exam: No nasal polyps present and No nasal discharge present Face and sinus: Yes sinuses nontender Mouth: oropharynx normal Throat: Yes posterior oropharynx normal Eyes General: appearance normal, both eyes and all related structures Neck Neck: Yes normal visual inspection, Yes no lymphadenopathy, Yes trachea midline and Yes no JVD Thyroid: Thyroid normal Chest Chest palpation & inspection: normal inspection of the chest, normal palpation of entire chest wall and no tenderness Resp Other: Percussion note resonant, breath sounds are slightly distant with prolonged expiratory phase. But no audible wheezes or rhonchi. Cardio Palpation: normal PMI Rate: regular rate Rhythm: regular rhythm Heart sounds: no gallops and no murmurs GI Palpation (GI): Soft to palpation, nontender, No hepatosplenomegaly present and no masses Auscultation: normal bowel sounds Back/Spine/Pelvis Thoracic/Lumbar Spine: thoracic and lumbar spine normal to inspection Skin General skin exam: no rashes or lesions noted Neuro General: patient oriented x3 and no focal motor deficits Cranial nerves: Yes CN's II-XII intact bilaterally Extrem General: Yes normal to inspection, Yes no clubbing, cyanosis or edema, Yes no calf tenderness and Yes other (Legs are thin, he has no palpable peripheral pulses.) Psych Appearance: grossly normal Speech and movement: Normal speech and movement present Assessment & Plan Assessment & Plan (1) COPD (chronic obstructive pulmonary disease): Comment: (moderately severe COPD - currently well controlled) [place] : Advised to contnue using : Breo-200 1 inhalation daily. May use DuoNeb updrafts t.i.d. only PRN . or Albuterol HFA 2 puffs Q 4-6 hours p.r.n. when outdoors, * HE TOLD THAT HE DOES NOT NEED TO USE MONTELUKAST TABLET. MAY HAVE TO RESTART IF HE STARTS HAVING CONSTANT NASAL CONGESTION AND POSTNASAL DISCHARGE. Code(s): J44.9 - Chronic obstructive pulmonary disease, unspecified (2) Obesity (BMI 30-39.9): Comment: Patient is grossly obese especially in the abdomen. He is watching his diet and has successfully lost weight . * He denies symptoms of sleep apnea. Code(s): E66.9 - Obesity, unspecified Coding Level of Care Code Est Pt Level 3 (19648) Diagnoses COPD (chronic obstructive pulmonary disease) J44.9 Obesity (BMI 30-39.9) E66.9
== END 2022-12-31 10:01 | disposition home or self-care (01) ==
PROVIDERS: PCP Internal Medicine; Visit Provider Internal Medicine
DX: J44.9 Chronic obstructive pulmonary disease, unspecified (principal); E66.9 Obesity, unspecified
CPT/HCPCS: 99213

== ENCOUNTER → 2022-12-31 09:26 | Outpatient (BNVA) | payer MEDICARE, OTHER, SELFPAY | PROVIDERS: PCP Internal Medicine; Visit Provider Internal Medicine | DX: J44.9 Chronic obstructive pulmonary disease, unspecified (principal); E66.9 Obesity, unspecified | CPT/HCPCS: 99212 ==

== ENCOUNTER 2023-05-05 17:20 | Emergency (ER) | payer MEDICARE, OTHER, SELFPAY ==
--- NOTE | ~2023-05-05 | CT_ITS ---
EXAMINATION: CT ABDOMEN AND PELVIS WITHOUT CONTRAST CLINICAL INFORMATION: Right flank pain COMPARISON: CT of the pelvis April [address] of the abdomen October 2021 TECHNIQUE: Multidetector volumetric imaging was performed from the superior aspect of the liver through the pubic symphysis. Sagittal and coronal reformatted images were obtained on the technologist's workstation. This CT examination was performed using dose optimization techniques as appropriate, variously including the following: *Automated exposure control *Adjustment of mA and/or kV according to patient size (this includes techniques or standardized protocols for targeted exams where dose is matched to indication/reason for exam; i.e. extremities or head) *Use of iterative reconstruction technique DLP: 811 mGy-cm FINDINGS: LUNG BASES: The visualized lung bases are unremarkable. LIVER, GALLBLADDER, AND BILIARY TREE: Enlarged fatty liver. No focal lesion or biliary duct dilatation. The gallbladder has been removed. PANCREAS: Unremarkable. SPLEEN: Unremarkable. ADRENAL GLANDS: Stable low-attenuation right adrenal nodule probably representing a benign adenoma. No imaging follow-up recommended. Normal left adrenal gland. KIDNEYS AND URETERS: The kidneys are normal in size, shape, and attenuation. No hydronephrosis, hydroureter, or calculi seen. Centimeter right renal cyst. No imaging follow-up recommended. No perinephric stranding. BLADDER: Unremarkable. GASTROINTESTINAL TRACT: Diverticulosis of the colon. No evidence of diverticulitis The small and large bowel are unremarkable. The appendix is unremarkable. Small esophageal hernia. Question fold thickening of the proximal stomach. ABDOMINAL WALL: Small umbilical hernia containing fat. LYMPH NODES: Normal. VASCULAR: Atherosclerotic disease. Postsurgical changes with right femoral bypass PELVIC VISCERA: Unremarkable. OSSEOUS STRUCTURES: Degenerative changes of the spine. CT/CT abdomen pelvis wo IV con IMPRESSION: No stone or hydronephrosis. Enlarged fatty liver. Diverticulosis of the colon. Fleischner guidelines were followed.
[2023-05-05 17:59] VITALS: BP 167/74; PULSE 105; RESP 20; TEMP 37; O2SAT 95; BMI 34.6
--- NOTE | 2023-05-05 18:03 | ED.MALEGU ---
HPI - Male Genitourinary General Chief complaint: General Medical Stated complaint: hematuria Time Seen by Provider: 05/05/23 20:33 Source: patient Mode of arrival: ambulatory Limitations: no limitations History of Present Illness HPI Narrative: Patient with peripheral arterial disease on Eliquis and cilostazol noticed aleja hematuria since 11:00 today no flank pain no history of kidney stone no blood in the stool no gum bleeding never had similar problem in the past Related Data Home Medications Medication Instructions Recorded Confirmed aspirin 81 mg tablet,delayed 81 mg PO DAILY 01/22/20 12/15/22 release (Adult Low Dose Aspirin) carvedilol 6.25 mg tablet (Coreg) 6.25 mg PO BID 01/22/20 12/15/22 gabapentin 300 mg capsule 300 mg PO BID 01/22/20 12/15/22 lisinopril 5 mg tablet 5 mg PO DAILY 01/22/20 12/15/22 metformin 500 mg tablet,extended 1 tab PO BIDWM 01/29/20 12/15/22 release 24 hr simvastatin 20 mg tablet 20 mg PO BEDTIME 02/05/20 12/15/22 blood sugar diagnostic #10 ea 02/22/20 06/26/21 insulin aspart U-100 100 unit/mL unit subcut DIRECTED 02/22/20 06/26/21 (3 mL) subcutaneous pen pen needle, diabetic 32 gauge x #50 ea 02/22/20 06/26/21 glipizide 5 mg tablet, extended 5 mg PO DAILY 09/12/20 12/15/22 release 24 hr sildenafil 50 mg tablet mg PO DIRECTED 09/12/20 06/26/21 fenofibrate 160 mg tablet 160 mg PO DAILY 03/13/21 12/15/22 cilostazol 100 mg tablet 100 mg PO ONCE 06/26/21 12/15/22 Previous Rx's Medication Instructions Recorded apixaban 2.5 mg tablet (Eliquis) 2.5 mg PO BID #60 tabs 02/01/20 insulin glargine 100 unit/mL (3 20 unit (0.2 mL) subcut BEDTIME 30 02/01/20 mL) subcutaneous pen (Basaglar days #6 mL KwikPen U-100 Insulin) insulin lispro 100 unit/mL See Rx Instructions .Route 02/01/20 subcutaneous cartridge (Humalog .COMPLEX #1 mL U-100 Insulin) ipratropium 0.5 mg-albuterol 3 mg 3 ml inhalation QID PRN wheezing 02/05/20 (2.5 mg base)/3 mL nebulization 30 days #90 mL soln montelukast 10 mg tablet 10 mg PO DAILY #90 tabs 02/05/22 Breo Ellipta 200 mcg-25 mcg/dose 1 inh inhalation DAILY #60 ea 04/21/22 powder for inhalation (fluticasone furoate-vilanterol) albuterol sulfate 90 mcg/actuation 2 puff inhalation QID PRN 12/25/22 aerosol inhaler shortness of breath or wheezing #18 grams Allergies Allergy/AdvReac Type Severity Reaction Status Date / Time No Known Allergies Allergy Verified 12/31/22 09:49 Review of Systems Review of Systems: Yes all other systems are reviewed and are negative [facility] Past Medical History Medical History Personal history of nicotine dependence Obesity (BMI 30-39.9) COPD (chronic obstructive pulmonary disease) Bronchitis Femoral-popliteal bypass graft occlusion (~01/2020) PVD (peripheral vascular disease) Tubular adenoma of colon (~2002) Hyperlipidemia HTN (hypertension) DM2 (diabetes mellitus, type 2) PAD (peripheral artery disease) Surgical History History of femoropopliteal bypass (~2019) History of laryngoscopy (~2003) History of vasectomy (~1996) History of colonoscopy (~2019) History of laparoscopic cholecystectomy (~2006) History of tonsillectomy History of femoral angiogram (~2018) Family History Family History Father No problems noted. Mother No problems noted. Social History Social History Household Members: Children Housing: House Comment: sleeping Patient Tobacco Use Status: Former Tobacco user Years Smoked: 56 service: No Current occupational status: retired Physical Exam Vital Signs: Vital Signs: Last Vital Signs Temp 98.0 F 05/05/23 20:18 Pulse 90 05/05/23 20:18 Resp 18 05/05/23 20:18 BP 148/79 H 05/05/23 20:18 Pulse Ox 96 05/05/23 20:18 O2 Del Method Room Air 05/05/23 20:18 BMI result Body Mass Index 34.6 Appearance: Alert. Oriented X3. No acute distress. Eyes: No pallor or icterus ENT: Pharynx normal. Oral Mucosa moist Neck: Normal inspection. Neck supple. CVS: Normal heart rate and rhythm. Pulses normal. Respiratory: No respiratory distress. Equal air entry bilateral, no wheezing/rales/rhonchi Abdomen: Soft and nontender. Bowel sounds are present, no mass palpable, no CVA tenderness Skin: Skin warm and dry. Normal skin color. Normal skin turgor. Extremities: No lower extremity edema. No calf tenderness Neuro: Oriented X 3. No motor deficit. No sensory deficit.No cerebellar signs , cranial nerves II-XII intact Course Course Course Narrative: This is a rapid medical exam: Additional HPI, ROS, PE not included below will be deferred to primary provider. Complaints of gross hematuria throughout the day without evidence of clots. Right flank discomfort. Denies cramping, difficulty with urination Medical Decision Making Medical Decision Making MDM Narrative: Patient has aleja hematuria painless on Eliquis and cilostazol. Possible from the medication/bladder growth. For now will ask him to stop Eliquis Lantus urologist Differential Diagnosis Differential Diagnoses: The differential diagnosis associated with the presentation includes Bladder cancer/medication side effects Lab Data [facility] Lab Attestation statement: I reviewed the patient's lab results. 05/05/23 18:33 05/05/23 18:33 Labs: Lab Results 05/05/23 Range/Units 18:33 WBC 7.6 (4.8-10.8) X10*3/uL RBC 4.81 (4.60-5.80) X10*6/uL Hgb 14.0 (14.0-18.0) g/dl Hct 41.2 L (42.0-52.0) % MCV 85.7 (80.0-98.0) fL MCH 29.1 (27.0-33.0) pg MCHC 34.0 (31.0-36.0) g/dl RDW 13.0 (11.0-16.0) % Plt Count 299 (160-400) X10*3/uL MPV 10.2 (9.4-12.4) fL Immature Gran % (Auto) 0.5 H (0.0-0.4) % Neut % (Auto) 56.4 (45-73) % Lymph % (Auto) 31.5 (20-40) % Bent % (Auto) 8.2 (2-11) % Eos % (Auto) 2.6 (0-4) % Baso % (Auto) 0.8 (0-2) % Lymph # (Auto) 2.4 (1.2-4.9) X10*3/uL Bent # (Auto) 0.6 (0.1-1.2) X10*3/uL Eos # (Auto) 0.2 (0.0-0.4) X10*3/uL Baso # (Auto) 0.1 (0.0-0.2) X10*3/uL Abs Immat Gran (auto) 0.04 H (0.00-0.03) X10*3/uL Absolute Neuts (auto) 4.3 (2.0-8.3) x10*3/uL Absolute Nucleated RBC 0.000 (0.0-0.012) X10*3/uL Nucleated RBC % (auto) 0.0 (0.0-0.2) /100WBC Sodium 135 (135-145) mmol/L Potassium 4.2 (3.3-5.1) mmol/L Chloride 104 (96-108) mmol/L Carbon Dioxide 21 L (22-29) mmol/L Anion Gap 14 (12-20) BUN 17 H (9-16) mg/dL Creatinine 1.34 (0.5-1.4) mg/dL Estim Creat Clear Calc 60.7 Estimated GFR 52 Random Glucose 342 H (60-115) mg/dL Calcium 9.8 (8.4-10.2) mg/dL Total Bilirubin 0.6 (0.0-1.0) mg/dL AST 15 (5-37) U/L ALT 18 (0-40) U/L Alkaline Phosphatase 60 (39-117) U/L Total Protein 7.1 (6.5-8.0) g/dL Albumin 4.2 (3.5-5.0) g/dL Urine Color RED Urine Appearance Turbid Urine pH 5.0 (5.0-9.0) Ur Specific Register 1.015 (1.005-1.025) Urine Protein See Note (Neg-Trace) mg/dL Urine Glucose (UA) See Note (Negative) mg/dL Urine Ketones See Note (Negative) mg/dL Urine Blood Large (3+) H (Negative) Urine Nitrite See Note (Negative) Ur Leukocyte Esterase See Note (Negative) Urine RBC >20 H (0-2) /HPF Urine WBC 0-5 (0-5) /HPF Ur Squamous Epith Cells Not Reportable Urine Bacteria 1+ (None Seen) Hyaline Casts Not Reportable Discharge Plan Discharge Clinical Impression: Hematuria Patient Disposition: Home, Self-Care Instructions: Hematuria (ED) Additional Instructions: Hold Eliquis for now Continue cilostazol Drink plenty of fluids Restart Eliquis if urine gets clear Follow-up with urologist Prescriptions: No Action montelukast 10 mg tablet 10 mg PO DAILY Qty: 90 3RF Breo Ellipta 200-25 mcg/dose blister with device 1 inh inhalation DAILY Qty: 60 11RF albuterol sulfate 90 mcg/actuation HFA aerosol inhaler 2 puff inhalation QID PRN (Reason: shortness of breath or wheezing) Qty: 18 0RF metformin 500 mg tablet extended release 24 hr 1 tab PO BIDWM Humalog U-100 Insulin 100 unit/mL cartridge See Rx Instructions .ROUTE .COMPLEX Qty: 1 0RF Rx Instructions: Less than 110 (units): 0 111 to 150 - units: 0 151 to 200 - units: 2 201 to 250 - units:4 251 to 300 - units:6 301 to 350 - units: 8 350 - units:10 insulin glargine [Basaglar KwikPen U-100 Insulin] 100 unit/mL (3 mL) insulin pen 20 unit subcut BEDTIME 30 Days Qty: 6 0RF Eliquis 2.5 mg Tablet 2.5 mg PO BID Qty: 60 0RF cilostazol 100 mg tablet 100 mg PO ONCE glipizide 5 mg tablet extended release 24hr 5 mg PO DAILY sildenafil 50 mg tablet PO DIRECTED aspirin [Adult Low Dose Aspirin] 81 mg tablet,delayed release (DR/EC) 81 mg PO DAILY lisinopril 5 mg tablet 5 mg PO DAILY gabapentin 300 mg capsule 300 mg PO BID carvedilol [Coreg] 6.25 mg tablet 6.25 mg PO BID Rx Instructions: must administer with a meal/food (DME) pen needle, diabetic 32 gauge x 5/32 needle See Rx Instructions subcut .MEDSUPPLY Qty: 50 Rx Instructions: As directed insulin aspart U-100 100 unit/mL (3 mL) insulin pen subcut DIRECTED (DME) FreeStyle Lite Strips Strip See Rx Instructions Not Applicable TID Qty: 10 Rx Instructions: As directed simvastatin 20 mg tablet 20 mg PO BEDTIME ipratropium-albuterol 0.5 mg-3 mg(2.5 mg base)/3 mL solution for nebulization 3 ml inhalation QID PRN (Reason: wheezing) 30 Days Qty: 90 0RF fenofibrate 160 mg tablet 160 mg PO DAILY Referrals: Jerrod Waters MD [Physician] - 1 week Interventions: ED Discharge Assessment Last Done: 05/05/23 21:41 Discharge Date/Time: 05/05/23 21:41
[2023-05-05 18:38] LABS: MANUAL DIFF FLAG NO
[2023-05-05 18:39] LABS: Appearance Urine Turbid; Basophils Absolute Auto 0.1 X10*3/uL (0.0-0.2); Basophils Percent Auto 0.8 % (0-2); Color Urine RED; Eosinophils Absolute Auto 0.2 X10*3/uL (0.0-0.4); Eosinophils Percent Auto 2.6 % (0-4); Hematocrit 41.2 % (42.0-52.0); Imm Gran Abs Auto 0.04 X10*3/uL (0.00-0.03); Imm Gran Pct Auto 0.5 % (0.0-0.4); Lymphocytes Absolute Auto 2.4 X10*3/uL (1.2-4.9); Lymphocytes Percent Auto 31.5 % (20-40); Mean Corpuscular Hemoglobin 29.1 pg (27.0-33.0); Mean Corpuscular Volume 85.7 fL (80.0-98.0); Mean Platelet Volume 10.2 fL (9.4-12.4); Monocytes Absolute Auto 0.6 X10*3/uL (0.1-1.2); Monocytes Percent Auto 8.2 % (2-11); Neutrophils Absolute Auto 4.3 x10*3/uL (2.0-8.3); Neutrophils Percent Auto 56.4 % (45-73); Platelet Count 299 X10*3/uL (160-400); Red Blood Count 4.81 X10*6/uL (4.60-5.80); Specific Gravity - Urine 1.015 (1.005-1.025); UMIC TRIGGER UACC YES; Urine Blood Large (3+) (Negative); White Blood Count 7.6 X10*3/uL (4.8-10.8)
[2023-05-05 18:56] LABS: RBC Urine >20 /HPF (0-2); WBC Urine 0-5 /HPF (0-5)
[2023-05-05 18:57] LABS: Bacteria Urine 1+ (None Seen)
[2023-05-05 18:59] LABS: Alanine Aminotransferase 18 U/L (0-40); Albumin Level 4.2 g/dL (3.5-5.0); Alkaline Phosphatase 60 U/L (39-117); Anion Gap 14 (12-20); Aspartate Amino Transferase 15 U/L (5-37); Bilirubin Total 0.6 mg/dL (0.0-1.0); Blood Urea Nitrogen 17 mg/dL (9-16); Calcium 9.8 mg/dL (8.4-10.2); Carbon Dioxide 21 mmol/L (22-29); Chloride 104 mmol/L (96-108); Creatinine Clr Calc Pharmacy 60.7; Estimated Glomerular Filt Rate 52; Glucose Random 342 mg/dL (60-115); Potassium 4.2 mmol/L (3.3-5.1); Sodium 135 mmol/L (135-145); Total Protein 7.1 g/dL (6.5-8.0)
[2023-05-05 20:18] VITALS: BP 148/79; PULSE 90; RESP 18; TEMP 36.7; O2SAT 96
--- NOTE | 2023-05-05 21:34 | PC.NURSE ---
this rn assumed care of pt. pt reporting episodes of bloody urine since AM without relief. pt denies any urinary symptoms including burning with urination and flank pain. pt bladder scanned per provider order 239ml found. provider aware.
== END 2023-05-05 21:41 | disposition home or self-care (01) ==
PROVIDERS: Nurse Practitioner Family; Emergency Provider Internal Medicine; PCP Internal Medicine
DX: R31.9 Hematuria, unspecified (principal); I73.9 Peripheral vascular disease, unspecified; I10 Essential (primary) hypertension; E11.9 Type 2 diabetes mellitus without complications; J44.9 Chronic obstructive pulmonary disease, unspecified; Z79.01 Long term (current) use of anticoagulants; Z79.899 Other long term (current) drug therapy
CPT/HCPCS: 36415; 51798; 74176; 80053; 81001; 85025; 99284

== ENCOUNTER 2023-05-25 07:51 | Outpatient (REF) | payer MEDICARE, OTHER, SELFPAY ==
--- NOTE | ~2023-05-25 | CT_ITS ---
EXAMINATION: CT LUNG SCREENING CLINICAL INFORMATION: Personal history of nicotine dependence. COMPARISON: CT lung screening 05/22/2022. TECHNIQUE: Multidetector volumetric CT imaging of the chest is performed without contrast using low dose technique. Additional 2D coronal and sagittal reformatted images and axial 3D maximum intensity projection (MIP) images are generated on the CT workstation. This CT examination was performed using dose optimization techniques as appropriate, variously including the following: *Automated exposure control *Adjustment of mA and/or kV according to patient size (this includes techniques or standardized protocols for targeted exams where dose is matched to indication/reason for exam; i.e. extremities or head) *Use of iterative reconstruction technique DLP: 73 mGy-cm. FINDINGS: LUNGS: Mild emphysematous changes are seen along with bronchial thickening. The lungs are otherwise clear with no evidence of inflammation or worrisome nodules. Scattered punctate granulomas are again seen along with some small noncalcified micronodules, the largest measuring 2 mm in the left lower lobe (5:259) unchanged from prior (5:288). MEDIASTINUM: The mediastinum is normal. CORONARY ARTERY CALCIFICATION: Moderate. PLEURA: There is no pleural effusion. No pleural mass or thickening. AXILLA: No lymphadenopathy. UPPER ABDOMEN: Hepatic steatosis. Right small adrenal nodule shown to be a benign adenoma, is not well appreciated on this exam. No follow-up needed. OSSEOUS STRUCTURES: Unremarkable. CT/CT lung screening IMPRESSION: No evidence of malignancy. ASSESSMENT: Lung-RADS category 2: Benign. RECOMMENDATION: Routine annual low-dose CT screening in 12 months.
== END 2023-05-25 07:52 | disposition home or self-care (01) ==
LOC: HO.CT 07:51
PROVIDERS: PCP Internal Medicine; Visit Provider Nurse Practitioner Family
DX: Z12.2 Encounter for screening for malignant neoplasm of respiratory organs (principal); Z87.891 Personal history of nicotine dependence
CPT/HCPCS: 71271

== ENCOUNTER 2023-06-09 11:31 | Outpatient (REF) | payer MEDICARE, OTHER, SELFPAY ==
[2023-06-09 13:26] LABS: MANUAL DIFF FLAG NO
[2023-06-09 14:01] LABS: Basophils Absolute Auto 0.1 X10*3/uL (0.0-0.2); Basophils Percent Auto 0.8 % (0-2); Eosinophils Absolute Auto 0.2 X10*3/uL (0.0-0.4); Eosinophils Percent Auto 3.2 % (0-4); Hematocrit 41.4 % (42.0-52.0); Hemoglobin 13.8 g/dl (14.0-18.0); Imm Gran Abs Auto 0.03 X10*3/uL (0.00-0.03); Imm Gran Pct Auto 0.4 % (0.0-0.4); Lymphocytes Absolute Auto 1.8 X10*3/uL (1.2-4.9); Lymphocytes Percent Auto 24.2 % (20-40); Mean Corpuscular HGB Conc 33.3 g/dl (31.0-36.0); Mean Corpuscular Hemoglobin 29.6 pg (27.0-33.0); Mean Corpuscular Volume 88.8 fL (80.0-98.0); Mean Platelet Volume 10.8 fL (9.4-12.4); Monocytes Absolute Auto 0.6 X10*3/uL (0.1-1.2); Monocytes Percent Auto 7.8 % (2-11); Neutrophils Absolute Auto 4.7 x10*3/uL (2.0-8.3); Neutrophils Percent Auto 63.6 % (45-73); Platelet Count 303 X10*3/uL (160-400); Red Blood Count 4.66 X10*6/uL (4.60-5.80); Red Cell Distribution Width 13.6 % (11.0-16.0); White Blood Count 7.4 X10*3/uL (4.8-10.8)
[2023-06-09 14:15] LABS: Estimated Average Glucose 269 mg/dL
[2023-06-09 15:02] LABS: Alanine Aminotransferase 20 U/L (0-40); Albumin Level 3.9 g/dL (3.5-5.0); Alkaline Phosphatase 56 U/L (39-117); Anion Gap 13 (12-20); Aspartate Amino Transferase 15 U/L (5-37); Bilirubin Total 0.8 mg/dL (0.0-1.0); Blood Urea Nitrogen 18 mg/dL (9-16); Calcium 9.4 mg/dL (8.4-10.2); Carbon Dioxide 23 mmol/L (22-29); Chloride 102 mmol/L (96-108); Estimated Glomerular Filt Rate 47; Glucose Random 529 mg/dL (60-115); Potassium 4.7 mmol/L (3.3-5.1); Sodium 133 mmol/L (135-145); Total Protein 6.8 g/dL (6.5-8.0)
== END 2023-06-09 11:32 | disposition home or self-care (01) ==
LOC: HO.10HDL 11:31
PROVIDERS: Visit Provider Internal Medicine
DX: E11.9 Type 2 diabetes mellitus without complications (principal); J44.9 Chronic obstructive pulmonary disease, unspecified; N18.9 Chronic kidney disease, unspecified; I73.9 Peripheral vascular disease, unspecified
CPT/HCPCS: 36415; 80053; 83036; 85025

== ENCOUNTER 2023-06-11 09:46 | Outpatient (REF) | payer MEDICARE, OTHER, SELFPAY ==
[2023-06-11 16:50] LABS: Urine Cytology See Pathology rpt
== END 2023-06-11 09:47 | disposition home or self-care (01) ==
LOC: HO.LNP 09:46
PROVIDERS: PCP Internal Medicine; Visit Provider Nurse Practitioner Family
DX: R31.0 Gross hematuria (principal); Z87.891 Personal history of nicotine dependence
CPT/HCPCS: 81003; 88112; 99202

== ENCOUNTER 2023-07-21 09:33 | Outpatient (AMB) | payer MEDICARE, OTHER, SELFPAY ==
[2023-07-21 09:54] VITALS: BP 122/68; PULSE 96; O2SAT 92; BMI 34.5
--- NOTE | 2023-07-21 09:54 | MHC.OFFVIS ---
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 Required: No Allergies No Known Allergies Allergy (Verified 07/21/23 10:12) Medication List - Last Reconciled 07/21/23 by Sangita Naidu MD albuterol sulfate 90 mcg/actuation 2 puffs inhalation QID PRN apixaban (Eliquis) 2.5 mg PO BID aspirin (Adult Low Dose Aspirin) 81 mg PO DAILY blood sugar diagnostic As directed Breo Ellipta 200-25 mcg/dose (fluticasone furoate-vilanterol) 1 inh inhalation DAILY NS carvedilol (Coreg) 6.25 mg PO BID cilostazol 100 mg PO ONCE fenofibrate 160 mg PO DAILY gabapentin 300 mg PO BID glipizide ER 5 mg PO DAILY insulin aspart U-100 units subcut DIRECTED insulin glargine (Basaglar KwikPen U-100 Insulin) 20 units (0.2 mL) subcut BEDTIME 30 days insulin lispro (Humalog U-100 Insulin) Less than 110 (units): 0 111 to 150 - units: 0 151 to 200 - units: 2 201 to 250 - units:4 251 to 300 - units:6 301 to 350 - units: 8 350 - units:10 ipratropium-albuterol 0.5 mg-3 mg(2.5 mg base)/3 mL 3 mL inhalation QID PRN 30 days lisinopril 5 mg PO DAILY metformin ER 1 tab PO BIDWM montelukast 10 mg PO DAILY pen needle, diabetic As directed sildenafil mg PO DIRECTED simvastatin 20 mg PO BEDTIME Do you need a note to return to daycare/school/sports/work: No HPI HPI copd: Details: NATO IS 73 YEARS. OLD VERY PLEASANT GENTLEMAN. HE IS GROSSLY OBESE AND WEIGHT REMAINS UNCHANGED. HE DOES NOT HAVE ANY SYMPTOMS OF SLEEP APNEA. HE IS BEING TREATED FOR CHRONIC OBSTRUCTIVE PULMONARY DISEASE WHICH IS MODERATELY SEVERE BUT HAS REMAINED WELL CONTROLLED WITH HIS CURRENT REGIMEN. DENIES HAVING HAD ANY ACUTE EXACERBATION. HE IS ACTUALLY NOT USING USING BREO EVERY DAY REGULARLY, BUT THEN ENDS UP USING ALBUTEROL A FEW TIMES A DAY. HE IS NOT ABLE TO WALK FAST, USES A CANE, SO DOES NOT COMPLAIN OF GETTING SHORT OF BREATH ON WALKING. [facility] Medical History Personal history of nicotine dependence Obesity (BMI 30-39.9) COPD (chronic obstructive pulmonary disease) Bronchitis Femoral-popliteal bypass graft occlusion (~01/2020) PVD (peripheral vascular disease) Tubular adenoma of colon (~2002) Hyperlipidemia HTN (hypertension) DM2 (diabetes mellitus, type 2) PAD (peripheral artery disease) Surgical History History of femoropopliteal bypass (~2019) History of laryngoscopy (~2003) History of vasectomy (~1996) History of colonoscopy (~2019) History of laparoscopic cholecystectomy (~2006) History of tonsillectomy History of femoral angiogram (~2018) Family History Father No problems noted. Mother No problems noted. Social History Household Members: Children Housing: House Comment: sleeping Patient Tobacco Use Status: Former Tobacco user Years Smoked: 56 service: No Current occupational status: retired Review of Systems Const All systems reviewed & are unremarkable except as noted in HPI and below Eyes Reports no additional complaints ENT Reports nasal congestion (Mild off and on ) Card Denies chest pain, Denies irregular heart rhythm and Denies leg edema Resp Reports as per HPI GI Reports no additional complaints Reports erectile dysfunction Musc Reports no additional complaints Skin/Breast Reports system reviewed and no additional complaints, except as documented Neuro Reports no additional complaints Psych Reports no additional complaints Physical Exam Vital Signs: Last Vital Signs Pulse 96 07/21/23 09:54 BP 122/68 07/21/23 09:54 Pulse Ox 92 07/21/23 09:54 Oxygen Delivery Method Room Air 07/21/23 09:54 BMI result Body Mass Index 34.5 Const General: comfortable, no acute distress, alert and awake Orientation/consciousness: patient oriented x3 HEENT Head: Yes normal to inspection General nose exam: No nasal polyps present and No nasal discharge present Face and sinus: Yes sinuses nontender Mouth: oropharynx normal Throat: Yes posterior oropharynx normal Eyes General: appearance normal, both eyes and all related structures Neck Neck: Yes normal visual inspection, Yes no lymphadenopathy, Yes trachea midline and Yes no JVD Thyroid: Thyroid normal Chest Chest palpation & inspection: normal inspection of the chest, normal palpation of entire chest wall and no tenderness Resp Other: Percussion note resonant, breath sounds are slightly distant with prolonged expiratory phase. But no audible wheezes or rhonchi. Cardio Palpation: normal PMI Rate: regular rate Rhythm: regular rhythm Heart sounds: no gallops and no murmurs GI Palpation (GI): Soft to palpation, nontender, No hepatosplenomegaly present and no masses Auscultation: normal bowel sounds Back/Spine/Pelvis Thoracic/Lumbar Spine: thoracic and lumbar spine normal to inspection Skin General skin exam: no rashes or lesions noted Neuro General: patient oriented x3 and no focal motor deficits Cranial nerves: Yes CN's II-XII intact bilaterally Extrem General: Yes normal to inspection, Yes no clubbing, cyanosis or edema, Yes no calf tenderness and Yes other (Legs are thin, he has no palpable peripheral pulses.) Psych Appearance: grossly normal Speech and movement: Normal speech and movement present Results Reviewed Results Reviewed: SPIROMETRY IN OFFICE 2021 2023 FVC 75 % 69 % FEV1 63 % 57 % FEF 25-75 33 % 34 % Assessment & Plan Assessment & Plan (1) COPD (chronic obstructive pulmonary disease): Comment: (moderately severe COPD , MODERATELY SEVERE , CURRENTLY IS FAIRLY STABLE. THE FLOW VOLUMES ARE SLIGHTLY DECLINED. Code(s): J44.9 - Chronic obstructive pulmonary disease, unspecified Category: Medical Plan: ADVISED TO USE BREO 200-251 INHALATION DAILY REGULARLY AND DO NOT SKIP. ALBUTEROL HFA 2 PUFFS Q 6 HOURS ONLY P.R.N. ALTERNATIVELY MAY USE ALBUTEROL SOLUTION IN THE NEBULIZER Q.6 HOURS P.R.N.. (2) Obesity (BMI 30-39.9): Comment: Patient is grossly obese especially in the abdomen. He is watching his diet and has successfully lost weight . * He denies symptoms of sleep apnea. Code(s): E66.9 - Obesity, unspecified Category: Medical Plan: AGAIN STRESS THAT HE SHOULD CONTINUE TO WATCH HIS DIET AND KEEP HIS WEIGHT UNDER CONTROL. Coding Level of Care Code Est Pt Level 3 (16641) Diagnoses COPD (chronic obstructive pulmonary disease) J44.9 Obesity (BMI 30-39.9) E66.9
== END 2023-07-21 10:32 | disposition home or self-care (01) ==
PROVIDERS: PCP Internal Medicine; Visit Provider Internal Medicine
DX: J44.9 Chronic obstructive pulmonary disease, unspecified (principal); E66.9 Obesity, unspecified
CPT/HCPCS: 94010; 99213

== ENCOUNTER → 2023-07-21 09:33 | Outpatient (BNVA) | payer MEDICARE, OTHER, SELFPAY | PROVIDERS: PCP Internal Medicine; Visit Provider Internal Medicine | DX: J44.9 Chronic obstructive pulmonary disease, unspecified (principal); E66.9 Obesity, unspecified; Z68.34 Body mass index [BMI] 34.0-34.9, adult | CPT/HCPCS: 94010; 99212 ==

== ENCOUNTER 2023-07-22 08:51 | Outpatient (AMB) | payer MEDICARE, OTHER, SELFPAY ==
--- NOTE | 2023-07-22 09:11 | A.OFFVIS_ITS ---
Intake Visit Reasons: cysto Intake Note: Patient is Present for Cystoscopy Urology Med:Sildenafil, Antibiotic Allergy: None Blood Thinner: Aspirin, Eliquis URO- G Disposable Cystoscope lot:[id number] exp:04/01/2026 Allergies No Known Allergies Allergy (Verified 07/22/23 09:12) HPI Comments Details: Rene is a pleasant male. He is a patient of Dr. Jalloh. He has seen for the following urologic conditions - gross hematuria Here for cystoscopy Bladder normal Six-month follow-up nurse-practitioner Gross hematuria Single episode with emergency room presentation CT KUB performed. Normal Hematuria resolved over 24 hours No further episodes Smoking history 50 year pack per day history PSA 01/18 2.1, 12/21 1.9 PFSH Medical History Personal history of nicotine dependence Obesity (BMI 30-39.9) COPD (chronic obstructive pulmonary disease) Bronchitis Femoral-popliteal bypass graft occlusion (~01/2020) PVD (peripheral vascular disease) Tubular adenoma of colon (~2002) Hyperlipidemia HTN (hypertension) DM2 (diabetes mellitus, type 2) PAD (peripheral artery disease) Surgical History History of femoropopliteal bypass (~2019) History of laryngoscopy (~2003) History of vasectomy (~1996) History of colonoscopy (~2019) History of laparoscopic cholecystectomy (~2006) History of tonsillectomy History of femoral angiogram (~2018) Family History Father No problems noted. Mother No problems noted. Social History Household Members: Children Housing: House Comment: sleeping Patient Tobacco Use Status: Former Tobacco user Years Smoked: 56 service: No Current occupational status: retired Review of Systems Const Denies chills and Denies fever(s) Card Reports no additional complaints and Denies syncope Resp Denies cough GI Denies abdominal pain and Denies heartburn Reports as per HPI and Denies change in libido Neuro Denies syncope Psych Denies change in libido Endo Denies change in libido Physical Exam Const General: cooperative, healthy appearing, comfortable and no acute distress Orientation/consciousness: patient oriented x3 HEENT Face and sinus: Yes normal facial exam Mouth: moist mucous membranes Neck Neck: Yes normal visual inspection, Yes full ROM and Yes trachea midline Chest Chest palpation & inspection: normal inspection of the chest Resp Effort & Inspection: normal respiratory effort, able to speak in complete sentences and no respiratory distress GI Inspection: Yes normal to inspection Back/Spine/Pelvis Cervical Spine: normal cervical lordosis Thoracic/Lumbar Spine: thoracic and lumbar spine normal to inspection Skin General skin exam: no rashes or lesions noted Neuro General: patient oriented x3, gait normal, tone normal and moves all extremities Extrem General: Yes normal to inspection and Yes capillary refill normal Office Procedures Cystoscopy Consent Discussed risk and benefit or proposed procedure with the patient. Information consent for procedure given to the patient. Discussed technical aspects, risks, benefits and alternatives in full. Addressed all of the patient's questions and concerns regarding the procedure. The patient demonstrated knowledge and understanding. They wish to proceed with this procedure. Preparation The patient was prepped in the usual manner. A corporate financial analyst was present and in the room. Genitalia was prepped with betadine solution in a sterile manner. Lidocaine Jelly 2% was placed into the urethra and 16Fr flexible Olympus cystoscope was inserted into the meatus after adequate lubrication. Procedure Cystoscopy performed using a disposable Urovue digital 16 Bulgarian cystoscope. Meatus circumcised Urethra anterior-posterior urethra normal Prostatic Urethra unremarkable Bladder examination with retroflexion of cystoscope Bladder Orifices normal shape and position Bladder Capacity new Trabeculations grade 2 Cellule Formation - Diverticulum Formation - Mucosal Erythema - Bladder Tumor - [id number] DISPOSABLE SCOPE URO-G FLEXIBLE SCOPE Procedure code (CPT) selection complete Office Meds lidocaine HCl 2 % mucosal jelly in applicator Performing Provider: Jerrod Waters MD Performing Location: [facility] Administered by: Dee Skinner RN on 07/22/23 09:20 Dose Route Admin Location Dispensed Lot Number Expiration Date [employer] 10 mL intra-urethral 10 mL nitrofurantoin monohydrate/macrocrystals 100 mg capsule Performing Provider: Jerrod Waters MD Performing Location: [facility] Administered by: Dee Skinner RN on 07/22/23 09:20 Dose Route Admin Location Dispensed Lot Number Expiration Date [employer] 100 mg PO 1 cap naproxen 500 mg tablet Performing Provider: Jerrod Waters MD [facility] Administered by: Dee Skinner RN on 07/22/23 09:20 Dose Route Admin Location Dispensed Lot Number Expiration Date NDC [employer] 500 mg PO 1 tab Results AMB Urinalysis, Automated UA Leukoctes 0 Tino/uL Last Edit by JOCE Andrade on 07/22/23 09:25 UA Nitrite Negative Last Edit by AGUSTINA AndradeA on 07/22/23 09:25 UA Urobilinogen 0.2 mg/dL Last Edit by JOCE Andrade on 07/22/23 09:2 5 UA Protein 0 mg/dL Last Edit by JOCE Andrade on 07/22/23 09:25 UA pH 6.0 Last Edit by JOCE Andrade on 07/22/23 09:25 UA Blood 0 Carlos/uL Last Edit by JOCE Andrade on 07/22/23 09:25 UA Specific Dingess 1.010 Last Edit by JOCE Andrade on 07/22/23 09: 25 UA Ketone Negative Last Edit by JOCE Andrade on 07/22/23 09:25 UA Bilirubin 0 mg/dL Last Edit by AGUSTINA AndradeA on 07/22/23 09:25 UA Glucose 1000 mg/dL Last Edit by JOCE Andrade on 07/22/23 09:25 Results Reviewed Results Reviewed: Laboratory Last Values Urine pH (Auto) 6.0 07/22/23 09:12 Specific Dingess (Auto) 1.010 07/22/23 09:12 Urine Protein (Auto) 0 mg/dL 07/22/23 09:12 Glucose (UA)(Auto) 1000 mg/dL 07/22/23 09:12 Urine Ketones (Auto) Negative 07/22/23 09:12 Urine Blood (Auto) 0 Carlos/uL 07/22/23 09:12 Urine Nitrite (Auto) Negative 07/22/23 09:12 Urine Bilirubin (Auto) 0 mg/dL 07/22/23 09:12 Urine Urobilinogen (Auto) 0.2 mg/dL 07/22/23 09:12 Leukocyte Esterase (Auto) 0 Tino/uL 07/22/23 09:12 Assessment & Plan Assessment & Plan (1) Gross hematuria: Code(s): R31.0 - Gross hematuria Category: Medical (2) Bladder outlet obstruction: Code(s): N32.0 - Bladder-neck obstruction Category: Medical Plan Six-month follow-up nurse-practitioner Orders: Orders AMB Urinalysis Automated 07/22/23 Z13.9 - Encounter for screening, unspecified AMB Cystoscopy 07/22/23 R31.0 - Gross hematuria Medications: New finasteride 5 mg PO DAILY 90 tabs 1RF 90 days N32.0 - Bladder-neck obstruction Patient Instructions: Imaging studies, laboratory and physical exam results were discussed and reviewed in detail. No major barriers to patient understanding were identified. An opportunity to ask questions regarding the treatment plan was provided. All questions were answered. The patient expressed understanding and agreement with the above treatment plan. The patient is aware they should contact our office by phone for worsening of their current condition or the appearance of new urologic symptoms. Compliance is encouraged with any medications and followup testing that is ordered. It is a privilege to participate in the urologic care of your patient. If you have any questions or concerns regarding treatment for the above conditions, or other urologic issues, please do not hesitate to contact me. The office telephone contact is [phone]. This note is constructed using voice recognition software. While every effort has been made to ensure accuracy analysis engineer errors may have been included. Yours sincerely, Dr Jerrod Waters MD, [facility] - Urology Providers of Expert, Compassionate Care for the Genitourinary System Coding Level of Care Code Est Pt Level 3 (66661) Diagnoses Gross hematuria R31.0 Bladder outlet obstruction N32.0 CPT Codes Cystoscopy - CPT: 87042-[id number] ([id number])
== END 2023-07-22 09:47 | disposition home or self-care (01) ==
LOC: HO.HUSH 08:52
PROVIDERS: PCP Internal Medicine; Visit Provider Urology
DX: R31.0 Gross hematuria (principal); Z13.9 Encounter for screening, unspecified
CPT/HCPCS: 52000

== ENCOUNTER → 2023-07-22 08:51 | Outpatient (BNVA) | payer MEDICARE, OTHER, SELFPAY | PROVIDERS: PCP Internal Medicine; Visit Provider Urology | DX: R31.0 Gross hematuria (principal); N32.0 Bladder-neck obstruction | CPT/HCPCS: 52000; 81003 ==

== ENCOUNTER 2023-08-09 06:23 | Outpatient (REF) | payer MEDICARE, OTHER, SELFPAY ==
[2023-08-09 06:52] LABS: MANUAL DIFF FLAG NO
[2023-08-09 07:51] LABS: Basophils Absolute Auto 0.1 X10*3/uL (0.0-0.2); Basophils Percent Auto 0.9 % (0-2); Eosinophils Absolute Auto 0.2 X10*3/uL (0.0-0.4); Eosinophils Percent Auto 2.6 % (0-4); Hematocrit 42.5 % (42.0-52.0); Hemoglobin 13.9 g/dl (14.0-18.0); Imm Gran Abs Auto 0.06 X10*3/uL (0.00-0.03); Imm Gran Pct Auto 0.9 % (0.0-0.4); Lymphocytes Absolute Auto 1.7 X10*3/uL (1.2-4.9); Lymphocytes Percent Auto 25.7 % (20-40); Mean Corpuscular HGB Conc 32.7 g/dl (31.0-36.0); Mean Corpuscular Hemoglobin 29.5 pg (27.0-33.0); Mean Corpuscular Volume 90.2 fL (80.0-98.0); Mean Platelet Volume 10.6 fL (9.4-12.4); Monocytes Absolute Auto 0.6 X10*3/uL (0.1-1.2); Monocytes Percent Auto 9.1 % (2-11); Neutrophils Percent Auto 60.8 % (45-73); Platelet Count 251 X10*3/uL (160-400); Red Blood Count 4.71 X10*6/uL (4.60-5.80); Red Cell Distribution Width 13.4 % (11.0-16.0); White Blood Count 6.6 X10*3/uL (4.8-10.8)
[2023-08-09 07:56] LABS: Estimated Average Glucose 255 mg/dL; Hemoglobin A1c % 10.5 % (<6.0)
[2023-08-09 08:23] LABS: Alanine Aminotransferase 16 U/L (0-40); Albumin Level 3.8 g/dL (3.5-5.0); Alkaline Phosphatase 66 U/L (39-117); Anion Gap 18 (12-20); Aspartate Amino Transferase 13 U/L (5-37); Bilirubin Total 0.5 mg/dL (0.0-1.0); Blood Urea Nitrogen 18 mg/dL (9-16); Calcium 9.5 mg/dL (8.4-10.2); Carbon Dioxide 24 mmol/L (22-29); Chloride 102 mmol/L (96-108); Estimated Glomerular Filt Rate 52; Potassium 4.6 mmol/L (3.3-5.1); Sodium 139 mmol/L (135-145); Total Protein 6.6 g/dL (6.5-8.0)
[2023-08-09 12:24] LABS: Glucose Random 412 mg/dL (60-115)
== END 2023-08-09 06:24 | disposition home or self-care (01) ==
LOC: HO.LAB 06:23
PROVIDERS: PCP Internal Medicine; Visit Provider Internal Medicine
DX: E11.51 Type 2 diabetes mellitus with diabetic peripheral angiopathy without gangrene (principal); I73.9 Peripheral vascular disease, unspecified; Z79.4 Long term (current) use of insulin; J44.9 Chronic obstructive pulmonary disease, unspecified; I10 Essential (primary) hypertension
CPT/HCPCS: 36415; 80053; 83036; 85025

== ENCOUNTER 2023-11-22 06:13 | Outpatient (REF) | payer MEDICARE, OTHER, SELFPAY ==
[2023-11-22 06:44] LABS: MANUAL DIFF FLAG NO
[2023-11-22 07:50] LABS: Basophils Absolute Auto 0.1 X10*3/uL (0.0-0.2); Basophils Percent Auto 0.8 % (0-2); Eosinophils Absolute Auto 0.2 X10*3/uL (0.0-0.4); Eosinophils Percent Auto 2.7 % (0-4); Hematocrit 42.5 % (42.0-52.0); Imm Gran Abs Auto 0.06 X10*3/uL (0.00-0.03); Imm Gran Pct Auto 0.9 % (0.0-0.4); Lymphocytes Percent Auto 30.9 % (20-40); Mean Corpuscular HGB Conc 32.9 g/dl (31.0-36.0); Mean Corpuscular Hemoglobin 29.3 pg (27.0-33.0); Mean Corpuscular Volume 88.9 fL (80.0-98.0); Mean Platelet Volume 10.3 fL (9.4-12.4); Monocytes Absolute Auto 0.6 X10*3/uL (0.1-1.2); Monocytes Percent Auto 9.8 % (2-11); Neutrophils Absolute Auto 3.5 x10*3/uL (2.0-8.3); Neutrophils Percent Auto 54.9 % (45-73); Platelet Count 317 X10*3/uL (160-400); Red Blood Count 4.78 X10*6/uL (4.60-5.80); Red Cell Distribution Width 13.5 % (11.0-16.0); White Blood Count 6.4 X10*3/uL (4.8-10.8)
[2023-11-22 08:01] LABS: Estimated Average Glucose 235 mg/dL; Hemoglobin A1c % 9.8 % (<6.0)
[2023-11-22 08:22] LABS: Alanine Aminotransferase 11 U/L (0-40); Albumin Level 4.1 g/dL (3.5-5.0); Alkaline Phosphatase 59 U/L (39-117); Anion Gap 16 (12-20); Aspartate Amino Transferase 9 U/L (5-37); Bilirubin Total 0.4 mg/dL (0.0-1.0); Blood Urea Nitrogen 25 mg/dL (9-16); Calcium 10.3 mg/dL (8.4-10.2); Carbon Dioxide 25 mmol/L (22-29); Chloride 103 mmol/L (96-108); Estimated Glomerular Filt Rate 43; Potassium 4.7 mmol/L (3.3-5.1); Sodium 139 mmol/L (135-145); Total Protein 7.3 g/dL (6.5-8.0)
[2023-11-22 08:57] LABS: Glucose Random 373 mg/dL (60-115)
== END 2023-11-22 06:14 | disposition home or self-care (01) ==
LOC: HO.LAB 06:13
PROVIDERS: PCP Internal Medicine; Visit Provider Internal Medicine
DX: E11.9 Type 2 diabetes mellitus without complications (principal); I10 Essential (primary) hypertension; E78.00 Pure hypercholesterolemia, unspecified; N18.9 Chronic kidney disease, unspecified; I73.9 Peripheral vascular disease, unspecified
CPT/HCPCS: 36415; 80053; 83036; 85025

== ENCOUNTER 2024-01-20 09:20 | Outpatient (AMB) | payer MEDICARE, OTHER, SELFPAY ==
--- NOTE | 2024-01-20 09:25 | A.OFFVIS_ITS ---
Vital Signs 01/20/24 09:28 Height 5 ft 10 in Weight 234 lb 12.677 oz BMI 33.7 BP 120/68 Blood Pressure Location Lt brachial Position Sitting Pulse 96 Pulse Source Pulse Oximeter Pulse Oximetry (%) 94 Oxygen Delivery Method Room Air Intake Visit Reasons: COPD Intake Note: patient is here for follow up and states he is feeling okay at this time. 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 Allergies No Known Allergies Allergy (Verified 01/20/24 09:28) Medication List - Last Reconciled 01/20/24 by Sangita Naidu MD albuterol sulfate 90 mcg/actuation 2 puffs inhalation QID PRN apixaban (Eliquis) 2.5 mg PO BID aspirin (Adult Low Dose Aspirin) 81 mg PO DAILY blood sugar diagnostic As directed Breo Ellipta 200-25 mcg/dose (fluticasone furoate-vilanterol) 1 inh inhalation DAILY NS carvedilol (Coreg) 6.25 mg PO BID cilostazol 100 mg PO ONCE fenofibrate 160 mg PO DAILY finasteride 5 mg PO DAILY 90 days gabapentin 300 mg PO BID glipizide ER 5 mg PO DAILY insulin aspart U-100 units subcut DIRECTED insulin glargine (Basaglar KwikPen U-100 Insulin) 20 units (0.2 mL) subcut BEDTIME 30 days insulin lispro (Humalog U-100 Insulin) Less than 110 (units): 0 111 to 150 - units: 0 151 to 200 - units: 2 201 to 250 - units:4 251 to 300 - units:6 301 to 350 - units: 8 350 - units:10 ipratropium-albuterol 0.5 mg-3 mg(2.5 mg base)/3 mL 3 mL inhalation QID PRN 30 days lisinopril 5 mg PO DAILY metformin ER 1 tab PO BIDWM montelukast 10 mg PO DAILY pen needle, diabetic As directed sildenafil mg PO DIRECTED simvastatin 20 mg PO BEDTIME Do you need a note to return to daycare/school/sports/work: No HPI HPI COPD: Details: [age] gentleman, comes for 6 months follow-up for his COPD. Uses Breo 200-25 once a day and stays well. He has to use albuterol inhaler only once in a while. He has not needed to use the DuoNeb updraft which he does have at home. Sleeps well. Remains very active during the daytime. Has lost a few lb of weight. He is moderately obese but denies symptoms of sleep apnea. [facility] Medical History Personal history of nicotine dependence Obesity (BMI 30-39.9) COPD (chronic obstructive pulmonary disease) Bronchitis Femoral-popliteal bypass graft occlusion (~01/2020) PVD (peripheral vascular disease) Tubular adenoma of colon (~2002) Hyperlipidemia HTN (hypertension) DM2 (diabetes mellitus, type 2) PAD (peripheral artery disease) Surgical History History of femoropopliteal bypass (~2019) History of laryngoscopy (~2003) History of vasectomy (~1996) History of colonoscopy (~2019) History of laparoscopic cholecystectomy (~2006) History of tonsillectomy History of femoral angiogram (~2018) Family History Father No problems noted. Mother No problems noted. Social History Household Members: Children Housing: House Comment: sleeping Patient Tobacco Use Status: Former Tobacco user Years Smoked: 56 service: No Current occupational status: retired Review of Systems Const All systems reviewed & are unremarkable except as noted in HPI and below Eyes Reports no additional complaints ENT Reports nasal congestion (Mild off and on ) Card Denies chest pain, Denies irregular heart rhythm and Denies leg edema Resp Reports as per HPI GI Reports no additional complaints Reports erectile dysfunction Musc Reports no additional complaints Skin/Breast Reports system reviewed and no additional complaints, except as documented Neuro Reports no additional complaints Psych Reports no additional complaints Physical Exam Const General: comfortable, no acute distress, alert and awake Orientation/consciousness: patient oriented x3 HEENT Head: Yes normal to inspection General nose exam: No nasal polyps present and No nasal discharge present Face and sinus: Yes sinuses nontender Mouth: oropharynx normal Throat: Yes posterior oropharynx normal Eyes General: appearance normal, both eyes and all related structures Neck Neck: Yes normal visual inspection, Yes no lymphadenopathy, Yes trachea midline and Yes no JVD Thyroid: Thyroid normal Chest Chest palpation & inspection: normal inspection of the chest, normal palpation of entire chest wall and no tenderness Resp Other: Percussion note resonant, breath sounds are slightly distant with prolonged expiratory phase. But no audible wheezes or rhonchi. Cardio Palpation: normal PMI Rate: regular rate Rhythm: regular rhythm Heart sounds: no gallops and no murmurs GI Palpation (GI): Soft to palpation, nontender, No hepatosplenomegaly present and no masses Auscultation: normal bowel sounds Back/Spine/Pelvis Thoracic/Lumbar Spine: thoracic and lumbar spine normal to inspection Skin General skin exam: no rashes or lesions noted Neuro General: patient oriented x3 and no focal motor deficits Cranial nerves: Yes CN's II-XII intact bilaterally Extrem General: Yes normal to inspection, Yes no clubbing, cyanosis or edema, Yes no calf tenderness and Yes other (Legs are thin, he has no palpable peripheral pulses.) Psych Appearance: grossly normal Speech and movement: Normal speech and movement present Assessment & Plan Assessment & Plan (1) COPD (chronic obstructive pulmonary disease): Comment: He has chronic obstructive pulmonary disease related to his previous smoker. Remains very stable, No acute exacerbations. Code(s): J44.9 - Chronic obstructive pulmonary disease, unspecified Category: Medical Plan: Advised to continue using Breo 200-251 inhalation daily. Albuterol HFA 2 puffs Q 4-6 hours only p.r.n.. He does have nebulizer and DuoNeb solution but hardly needs to use. (2) Obesity (BMI 30-39.9): Comment: Patient is grossly obese especially in the abdomen. He is watching his diet and has successfully lost weight . * He denies symptoms of sleep apnea. Code(s): E66.9 - Obesity, unspecified Category: Medical Plan: Continue to lose weight, even 1 or 2 lb per month is 5. (3) Personal history of nicotine dependence: Comment: (Former smoker - 56pyh, quit 6 years ago) Code(s): Z87.891 - Personal history of nicotine dependence Category: Medical Plan: Talked about his past smoking, He is fully determined not to resume smoking. Coding Level of Care Code Est Pt Level 3 (83668) Diagnoses COPD (chronic obstructive pulmonary disease) J44.9 Obesity (BMI 30-39.9) E66.9 Personal history of nicotine dependence Z87.890
[2024-01-20 09:28] VITALS: BP 120/68; PULSE 96; O2SAT 94; BMI 33.7
== END 2024-01-20 09:40 | disposition home or self-care (01) ==
PROVIDERS: PCP Internal Medicine; Visit Provider Internal Medicine
DX: J44.9 Chronic obstructive pulmonary disease, unspecified (principal); E66.9 Obesity, unspecified; Z87.891 Personal history of nicotine dependence
CPT/HCPCS: 99213

== ENCOUNTER → 2024-01-20 09:20 | Outpatient (BNVA) | payer MEDICARE, OTHER, SELFPAY | PROVIDERS: PCP Internal Medicine; Visit Provider Internal Medicine | DX: J44.9 Chronic obstructive pulmonary disease, unspecified (principal); E66.9 Obesity, unspecified; Z87.891 Personal history of nicotine dependence; Z68.33 Body mass index [BMI] 33.0-33.9, adult | CPT/HCPCS: 99212 ==

== ENCOUNTER 2024-02-17 07:40 | Outpatient (AMB) | payer MEDICARE, OTHER, SELFPAY ==
--- OUTSIDE RECORDS SUMMARY | 2024-02-17 07:42 | XMS_ITS | Clinical Summary ---
Author Organization Unknown Care Team Providers [facility] Nurse Liaison Name Role Phone JONATHAN CERON, ERIC Unavailable Unavailable RADHA RN, MILAN Unavailable Unavailable MOE PT, NICOLE Unavailable Unavailable HOMER LEUNG, ALEX Unavailable Unavailable TOSHA LEUNG, CARL Unavailable Unavailable Payers Payer Name Policy Type Policy Number Effective Date Expira tion Date MEDICARE.NGS.PDGM [id number] Problems Condition Name Condition Details Condition Category Status Onset Date Resolution Date Last Treatment Date Treating Clinician Comments CHRONIC OBSTRUCTIVE PULMONARY DISEASE W (ACUTE) EXACERBATION Active 2019-03 00:00: 00 CHR OBSTRUCTIVE PULMON DISEASE WITH (ACUTE) LOWER RESP INFCT Active 2019-03 00:00: 00 ACUTE BRONCHITIS, UNSPECIFIED Active 2019-03 00:00: 00 ACUTE RESPIRATORY FAILURE WITH HYPOXIA Active 2019-03 00:00: 00 TYPE 2 DIABETES MELLITUS WITH HYPERGLYCEMI A Active 2019-03 00:00: 00 [facility] COMPL OF FEMORAL ARTERIAL GRAFT (BYPASS), SUBS ENCNTR Active 2019-03 00:00: 00 PERIPHERAL VASCULAR DISEASE, UNSPECIFIED Active 03-01 00:00: 00 ESSENTIAL (PRIMARY) HYPERTENSION Active 03-01 00:00: 00 HYPERLIPIDEM IA, UNSPECIFIED Active 03-01 00:00: 00 HISTORY OF FALLING Active 2019-03 00:00: 00 CORRECTION (CURRENT) USE OF INSULIN 2019-03 00:00: 00 CORRECTION (CURRENT) USE OF ANTICOAGULAN TS Active 2019-03 00:00: 00 RISK DEVELOPER (CURRENT) USE OF INHALED STEROIDS Active 2019-03 00:00: 00 Allergies, Adverse Reactions, Alerts Allergy Name Allergy Type Status Severity Reaction(s) Onset Date Inactive Date Treating Clinician Comments NO KNOWN ALLERGIES Propensity to adverse reactions Active 2019-03 17:08: 12 Medications Ordered Medication Name Filled Medication Name Start Date Stop Date Current Medication? Ordering Clinician Indication Dosage Frequency Signature (SIG) Comments Components albuterol sulfate HFA 90 mcg/actuati on aerosol inhaler 2019-03 00:00: 00 Yes [id number] 2 inhalat ion FOUR TIMES DAILY NEEDED 2 inhalation FOUR TIMES DAILY NEEDED (route: inhalation ) Med Classific ation: Respirato ry Therapy Agents prednisone 20 mg tablet 2019-03 00:00: 00 02-12 23:59 :00 No [id number] 1 tablet DAILY 1 tablet DAILY (route: oral) Med Classific ation: Endocrine doxycycline hyclate 100 mg capsule 2019-03 00:00: 00 01-31 23:59 :00 No [id number] Per instruc tions TWICE DAILY Per instructio ns TWICE DAILY (route: oral) Med Classific ation: Anti-Infe ctive Agents glipizide ER 5 mg tablet, extended release 24 hr 2019-03 00:00: 00 01-31 23:59 :00 No [id number] Per instruc tions EVERY DAY Per instructio ns EVERY DAY (route: oral) Med Classific ation: Endocrine azithromyci n 500 mg tablet 2019-03 00:00: 00 02-05 23:59 :00 No [id number] Per instruc tions ONCE DAILY X 3 DAYS Per instructio ns ONCE DAILY X 3 DAYS (route: oral) Med Classific ation: Anti-Infe ctive Agents lisinopril 5 mg tablet 11-05 00:00: 00 Yes [id number] 1 tablet EVERY DAY 1 tablet EVERY DAY (route: oral) Med Classific ation: Cardiovas cular Therapy Agents gabapentin 300 mg capsule 2019-03 00:00: 00 Yes [id number] 1 capsule TWICE A DAY 1 capsule TWICE A DAY (route: oral) Med Classific ation: Central Nervous System Agents simvastatin 20 mg tablet 2019-03 00:00: 00 Yes [id number] 1 tablet DAILY 1 tablet DAILY (route: oral) Med Classific ation: Cardiovas cular Therapy Agents carvedilol 6.25 mg tablet 2019-03 0-06 00:00: 00 Yes [id number] 1 tablet TWICE A DAY 1 tablet TWICE A DAY (route: oral) Med Classific ation: Cardiovas cular Therapy Agents metformin ER 500 mg tablet,exte nded release 24 hr 2019-03 0-26 00:00: 00 Yes [id number] 1 tablet TWICE A DAY 1 tablet TWICE A DAY (route: oral) Med Classific ation: Endocrine Basaglar KwikPen U-100 Insulin 100 unit/mL (3 mL) [facility] 00:00: 00 03-06 23:59 :00 No [id number] 20 unit BEDTIME 20 unit BEDTIME (route: subcutaneo us) Med Classific ation: Endocrine Breo Ellipta 200 mcg-25 mcg/dose powder for inhalation 2019-03 00:00: 00 Yes [id number] 1 inhalat ion DAILY 1 inhalation DAILY (route: inhalation ) Med Classific ation: Respirato ry Therapy Agents Eliquis 2.5 mg tablet 2019-03 00:00: 00 Yes [id number] 1 tablet 2 TIMES DAILY 1 tablet 2 TIMES DAILY (route: oral) Med Classific ation: Hematolog ical Agents ipratropium 0.5 mg-albutero l 3 mg (2.5 mg base)/3 mL nebulizatio n soln 2019-03 00:00: 00 Yes [id number] 3 mL 4 TIMES DAILY 3 mL 4 TIMES DAILY (route: inhalation ) Med Classific ation: Respirato ry Therapy Agents montelukast 10 mg tablet 2019-03 00:00: 00 Yes [id number] 1 tablet DAILY 1 tablet DAILY (route: oral) Med Classific ation: Respirato ry Therapy Agents Novolog Flexpen U-100 Insulin aspart 100 unit/mL (3 mL) subcutane s 2019-03 00:00: 00 Yes [id number] 2 unit NEEDED 2 unit NEEDED (route: subcutaneo us) Med Classific ation: Endocrine cilostazol 100 mg tablet 2019-03 00:00: 00 Yes [id number] 100 mg DAILY 100 mg DAILY (route: oral) Alternate Route: BY MOUTH. Med Classific ation: Hematolog ical Agents Basaglar KwikPen U-100 Insulin 100 unit/mL (3 mL) [facility] s 06 00:00: 00 Yes [id number] 24 unit BEDTIME 24 unit [facility]TIME ([facility] Med Classific ation: Endocrine Vital Signs Vital Name Observation Time Observation Value Commen ts Temperature 2020-04-05 13:02:27.000 98.5 [degF] Temperature 2020-03-18 13:07:11.000 98.2 [degF] Temperature 2020-03-06 12:56:46.000 97.8 [degF] Temperature 2020-02-20 08:19:37.000 97.2 [degF] Temperature 2020-02-14 11:39:00.000 97.7 [degF] Temperature 2020-02-09 09:20:55.000 96.7 [degF] Temperature 2020-02-06 09:48:08.000 98.4 [degF] Height 2020-02-06 09:50:48.000 70 [in_us] Pulse 2020-04-05 13:03:28.000 78 /min Pulse 2020-03-18 13:07:18.000 80 /min Pulse 2020-03-06 12:57:03.000 70 /min Pulse 2020-02-20 08:19:49.000 69 /min Pulse 2020-02-14 11:39:09.000 70 /min Pulse 2020-02-09 09:20:48.000 74 /min Pulse 2020-02-06 09:48:41.000 70 /min O2 Saturation (%) 2020-04-05 13:03:16.000 96 % O2 Saturation (%) 2020-03-18 13:07:24.000 96 % O2 Saturation (%) 2020-03-06 12:55:57.000 96 % O2 Saturation (%) 2020-02-20 08:20:02.000 96 % O2 Saturation (%) 2020-02-14 11:39:38.000 97 % O2 Saturation (%) 2020-02-09 09:21:39.000 95 % O2 Saturation (%) 2020-02-06 10:36:25.000 97 % O2 Saturation (%) 2020-02-06 09:50:22.000 96 % Respirations 2020-04-05 13:02:43.000 17 /min Respirations 2020-03-18 13:07:06.000 18 /min Respirations 2020-03-06 12:56:35.000 18 /min Respirations 2020-02-20 08:19:55.000 18 /min Respirations 2020-02-14 11:39:18.000 18 /min Respirations 2020-02-09 09:21:01.000 18 /min Respirations 2020-02-06 09:48:16.000 18 /min Weight (lbs) 2020-02-09 09:22:15.000 211 [lb_av] Weight (lbs) 2020-02-06 09:50:33.000 213 [lb_av] Systolic Blood Pressure 2020-04-05 13:01:58.000 130 mm [Hg] Systolic Blood Pressure 2020-03-18 13:07:00.000 122 mm [Hg] Systolic Blood Pressure 2020-03-06 12:56:29.000 140 mm [Hg] Systolic Blood Pressure 2020-02-20 08:19:32.000 122 mm [Hg] Systolic Blood Pressure 2020-02-14 11:39:30.000 138 mm [Hg] Systolic Blood Pressure 2020-02-09 09:21:14.000 128 mm [Hg] Systolic Blood Pressure 2020-02-06 09:47:41.000 132 mm [Hg] Diastolic Blood Pressure 2020-04-05 13:01:58.000 68 mm [Hg] Diastolic Blood Pressure 2020-03-18 13:07:00.000 70 mm [Hg] Diastolic Blood Pressure 2020-03-06 12:56:29.000 70 mm [Hg] Diastolic Blood Pressure 2020-02-20 08:19:32.000 80 mm [Hg] Diastolic Blood Pressure 2020-02-14 11:39:30.000 80 mm [Hg] Diastolic Blood Pressure 2020-02-09 09:21:14.000 74 mm [Hg] Diastolic Blood Pressure 2020-02-06 09:47:41.000 70 mm [Hg] Plan of Treatment Planned Activity Planned Date Details Comments Future Scheduled Test PHYSICAL T HERAPIST TO EVALUATE FOR STRENGTHENING AND IMPROVED ENDURANCE [code = PHYSICAL THERAPIST TO EVALUATE FOR STRENGTHENING AND IMPROVED ENDURANCE] Future Scheduled Test MEDICATION MANAGEMENT; SKILLED NURSE TO REVIEW MEDICATIONS FOR INTERACTIONS, EFFECTIVENESS OF DRUG THERAPY, AND SIGNS/SYMPTOMS OF ADVERSE REACTIONS. MAY INSTRUCT AND REINFORCE MEDICATION TEACHING RELATED TO THE USE OF MEDICATIONS, DOSAGE, FREQUENCY, PURPOSE, SIDE EFFECTS, AND TO REPORT COMPLICATIONS. [code = MEDICATION MANAGEMENT; SKILLED NURSE TO REVIEW MEDICATIONS FOR INTERACTIONS, EFFECTIVENESS OF DRUG THERAPY, AND SIGNS/SYMPTOMS OF ADVERSE REACTIONS. MAY INSTRUCT AND REINFORCE MEDICATION TEACHING RELATED TO THE USE OF MEDICATIONS, DOSAGE, FREQUENCY, PURPOSE, SIDE EFFECTS, AND TO REPORT COMPLICATIONS. ] Future Scheduled Test RESPIRATOR Y SYSTEM MANAGEMENT; SKILLED NURSE TO ASSESS AND TEACH RELATED TO ALTERED RESPIRATORY STATUS TO MINIMIZE COMPLICATIONS AND REDUCE HOSPITALIZATION. [code = RESPIRATORY SYSTEM MANAGEMENT; SKILLED NURSE TO ASSESS AND TEACH RELATED TO ALTERED RESPIRATORY STATUS TO MINIMIZE COMPLICATIONS AND REDUCE HOSPITALIZATION.] Future Scheduled Test COPD MANAG EMENT; SKILLED NURSE TO ASSESS AND TEACH SIGNS/SYMPTOMS OF COPD EXACERBATION AND PROVIDE EARLY INTERVENTIONS TO MINIMIZE RISK OF HOSPITALIZATION. SKILLED NURSE TO INSTRUCT ON SELF-CARE MANAGEMENT INCLUDING BREATHING TECHNIQUES, AIRWAY CLEARANCE, AND PROPER USE OF COPD MEDICATIONS. ASSESS PATIENT/CAREGIVER ABILITY TO MONITOR AND RECORD VITALS SIGNS INCLUDING PULSE OXIMETRY AND BLOOD PRESSURE. PULSE OXIMETER AND BP MONITOR TO BE PROVIDED IF NEEDED [code = COPD MANAGEMENT; SKILLED NURSE TO ASSESS AND TEACH SIGNS/SYMPTOMS OF COPD EXACERBATION AND PROVIDE EARLY INTERVENTIONS TO MINIMIZE RISK OF HOSPITALIZATION. SKILLED NURSE TO INSTRUCT ON SELF-CARE MANAGEMENT INCLUDING BREATHING TECHNIQUES, AIRWAY CLEARANCE, AND PROPER USE OF COPD MEDICATIONS. ASSESS PATIENT/CAREGIVER ABILITY TO MONITOR AND RECORD VITALS SIGNS INCLUDING PULSE OXIMETRY AND BLOOD PRESSURE. PULSE OXIMETER AND BP MONITOR TO BE PROVIDED IF NEEDED ] Future Scheduled Test FALL REDUC TION MANAGEMENT; NURSING TO PROVIDE SKILLED ASSESSMENT, EDUCATION, AND INTERVENTION TO IDENTIFY FALL RISK FACTORS SUCH MEDICATIONS THAT MAY CAUSE DIZZINESS, CHRONIC DISEASES, PSYCHOLOGICAL FACTORS, AND EMPOWER/EDUCATE PATIENT/CAREGIVER TO MINIMIZE FALL RISK. [code = FALL REDUCTION MANAGEMENT; NURSING TO PROVIDE SKILLED ASSESSMENT, EDUCATION, AND INTERVENTION TO IDENTIFY FALL RISK FACTORS SUCH MEDICATIONS THAT MAY CAUSE DIZZINESS, CHRONIC DISEASES, PSYCHOLOGICAL FACTORS, AND EMPOWER/EDUCATE PATIENT/CAREGIVER TO MINIMIZE FALL RISK.] Future Scheduled Test DIABETES M ANAGEMENT; SKILLED NURSE FOR INSTRUCTIONS OF DIABETIC CARE TO INCLUDE: DIET NCS SKIN CARE, SIGNS AND SYMPTOMS OF HYPO/HYPERGLYCEMIA, PROPER ADMINISTRATION OF DIABETIC MEDICATION. SKILLED NURSE TO INSTRUCT ON DIABETIC FOOT CARE AND MONITOR FOR SKIN LESIONS ON LOWER EXTREMITIES. BLOOD GLUCOSE TESTING 4 X DAILY AND PRN SKILLED NURSE TO ASSESS PATIENT/CAREGIVER ABILITY TO PERFORM AND RECORD BLOOD GLUCOSE TESTING ORDERED AND TO REPORT ABNORMAL FINDINGS TO PHYSICIAN. SKILLED NURSE MAY PERFORM BLOOD GLUCOSE TEST NEEDED. SKILLED NURSE TO REPORT TO PHYSICIAN BLOOD GLUCOSE READINGS GREATER THAN 60 OR LESS THAN 500 SKILLED NURSE TO INSTRUCT PATIENT ON IMPORTANCE OF HGBA1C MONITORING, KIDNEY FUNCTION TEST, EYE AND FOOT EXAMS. [code = DIABETES MANAGEMENT; SKILLED NURSE FOR INSTRUCTIONS OF DIABETIC CARE TO INCLUDE: DIET NCS SKIN CARE, SIGNS AND SYMPTOMS OF HYPO/HYPERGLYCEMIA, PROPER ADMINISTRATION OF DIABETIC MEDICATION. SKILLED NURSE TO INSTRUCT ON DIABETIC FOOT CARE AND MONITOR FOR SKIN LESIONS ON LOWER EXTREMITIES. BLOOD GLUCOSE TESTING 4 X DAILY AND PRN SKILLED NURSE TO ASSESS PATIENT/CAREGIVER ABILITY TO PERFORM AND RECORD BLOOD GLUCOSE TESTING ORDERED AND TO REPORT ABNORMAL FINDINGS TO PHYSICIAN. SKILLED NURSE MAY PERFORM BLOOD GLUCOSE TEST NEEDED. SKILLED NURSE TO REPORT TO PHYSICIAN BLOOD GLUCOSE READINGS GREATER THAN 60 OR LESS THAN 500 SKILLED NURSE TO INSTRUCT PATIENT ON IMPORTANCE OF HGBA1C MONITORING, KIDNEY FUNCTION TEST, EYE AND FOOT EXAMS.] Future Scheduled Test PAIN MANAG EMENT; SKILLED NURSE TO OBSERVE, ASSESS, AND PROVIDE EDUCATION ON PAIN MANAGEMENT TECHNIQUES. [code = PAIN MANAGEMENT; SKILLED NURSE TO OBSERVE, ASSESS, AND PROVIDE EDUCATION ON PAIN MANAGEMENT TECHNIQUES. ] Future Scheduled Test RISK FOR H OSPITALIZATION; SKILLED NURSE TO INSTRUCT PATIENT/CAREGIVER ON RISK FOR HOSPITALIZATION, TEACH SIGNS AND SYMPTOMS THAT PUT PATIENT AT RISK, WHEN TO NOTIFY NURSE OF COMPLICATIONS/DECLINE, AND WHEN TO CALL 911. SKILLED NURSE TO INSTRUCT PATIENT/CAREGIVER ON: SIGNS AND SYMPTOMS TO BE ON ALERT FOR EARLY INTERVENTION, PRIOR TO NEEDING EMERGENCY SERVICES CALL [facility] NURSE TO KEEP BUILDING CONSTRUCTION INSPECTOR SYMPTOM REPORT FOR VISIBLE REFERENCE NOTIFY SKILLED NURSE/PHYSICIAN FOR DECLINE IN STATS WHEN AND HOW TO CALL HOME HEALTH AGENCY FACILITATE PHYSICIAN FOLLOW UP APPOINTMENT IDENTIFY SOCIOECONOMIC CONCERNS AND MAKE APPROPRIATE REFERRAL NEEDED IDENTIFY PATIENT GOALS FOR STAYING OUT OF THE HOSPITAL: CONTROL DIABETES [code = RISK FOR HOSPITALIZATION; SKILLED NURSE TO INSTRUCT PATIENT/CAREGIVER ON RISK FOR HOSPITALIZATION, TEACH SIGNS AND SYMPTOMS THAT PUT PATIENT AT RISK, WHEN TO NOTIFY NURSE OF COMPLICATIONS/DECLINE, AND WHEN TO CALL 911. SKILLED NURSE TO INSTRUCT PATIENT/CAREGIVER ON: SIGNS AND SYMPTOMS TO BE ON ALERT FOR EARLY INTERVENTION, PRIOR TO NEEDING EMERGENCY SERVICES CALL [facility] NURSE TO KEEP BUILDING CONSTRUCTION INSPECTOR SYMPTOM REPORT FOR VISIBLE REFERENCE NOTIFY SKILLED NURSE/PHYSICIAN FOR DECLINE IN STATS WHEN AND HOW TO CALL HOME HEALTH AGENCY FACILITATE PHYSICIAN FOLLOW UP APPOINTMENT IDENTIFY SOCIOECONOMIC CONCERNS AND MAKE APPROPRIATE REFERRAL NEEDED IDENTIFY PATIENT GOALS FOR STAYING OUT OF THE HOSPITAL: CONTROL DIABETES ] Future Scheduled Test CARDIOVASC ULAR SYSTEM; SKILLED NURSE TO ASSESS AND TEACH RELATED TO ALTERED CARDIOVASCULAR STATUS TO MINIMIZE COMPLICATIONS AND REDUCE HOSPITALIZATION. [code = CARDIOVASCULAR SYSTEM; SKILLED NURSE TO ASSESS AND TEACH RELATED TO ALTERED CARDIOVASCULAR STATUS TO MINIMIZE COMPLICATIONS AND REDUCE HOSPITALIZATION.] Future Scheduled Test ATRIAL FIB RILLATION MANAGEMENT; SKILLED NURSE TO ASSESS/TEACH WARNING SIGNS AND SYMPTOMS TO AVOID HOSPITALIZATION. [code = ATRIAL FIBRILLATION MANAGEMENT; SKILLED NURSE TO ASSESS/TEACH WARNING SIGNS AND SYMPTOMS TO AVOID HOSPITALIZATION.] Future Scheduled Test PT EVALUAT ION PERFORMED. NO ADDITIONAL VISITS REQUIRED. PROVIDED SKILLED INTERVENTION INCLUDING STRENGTH, MOBILITY AND HOME SAFETY ASSESSMENT [code = PT EVALUATION PERFORMED. NO ADDITIONAL VISITS REQUIRED. PROVIDED SKILLED INTERVENTION INCLUDING STRENGTH, MOBILITY AND HOME SAFETY ASSESSMENT ] Goal 2020-04-05 Patient Goal - TO LOWER BLOO D SUGARS Goal Provider Goal - Goal Provider Goal - PATIENT/CAREGIVER TO VERBALIZE, AND CONSISTENTLY DEMONSTRATE EFFECTIVE, SAFE MANAGEMENT OF MEDICATION INCLUDING KNOWLEDGE OF EFFECTIVENESS, POTENTIAL SIDE EFFECTS AND DRUG REACTIONS AND WHEN TO CONTACT THE APPROPRIATE CARE PROVIDER. PATIENT/CAREGIVER WILL BE ABLE TO VERBALIZE UNDERSTANDING OF MEDICATION REGIMEN AND ACCURATELY TAKE MEDICATIONS PRESCRIBED WITHOUT ADVERSE EFFECTS Goal Provider Goal - PATIENT / CAREGIVER WILL VERBALIZE/DEMONSTRATE UNDERSTANDING OF MEASURES TO MANAGE ALTERED RESPIRATORY STATUS BY END OF EPISODE. Goal Provider Goal - PATIENT / CAREGIVER WILL VERBALIZE/DEMONSTRATE AN ABILITY TO ADHERE TO SELF-MANAGEMENT OF COPD TO MINIMIZE COMPLICATIONS AND AVOID HOSPITALIZATION BY END OF EPISODE. Goal Provider Goal - PATIENT/CAREGIVER ABLE TO IDENTIFY FALL RISK FACTORS AND IMPLEMENT STRATEGIES TO MINIMIZE FALL RISK. PATIENT/CAREGIVER WILL VERBALIZE/DEMONSTRATE AN ABILITY TO ADHERE TO FALL REDUCTION SELF MANAGEMENT AND LIFE-STYLE CHANGES AT DISCHARGE. PERSONAL GOAL(S) STATED BY PATIENT/CAREGIVER WILL BE MET BY 2.5.20 Goal Provider Goal - PATIENT / CAREGIVER WILL VERBALIZE / DEMONSTRATE AN ABILITY TO ADHERE TO SELF-MANAGEMENT OF DIABETES MANAGEMENT BY 2.5.20 Goal Provider Goal - PATIENT / CAREGIVER WILL VERBALIZE / DEMONSTRATE UNDERSTANDING OF PAIN CONTROL MEASURES Goal Provider Goal - PATIENT/CAREGIVER WILL VERBALIZE UNDERSTANDING OF SIGNS AND SYMPTOMS THAT PUT THE PATIENT AT RISK FOR HOSPITALIZATION, WHEN TO NOTIFY SN OF COMPLICATIONS/DECLINE AND WHEN TO CALL 911. Goal Provider Goal - PATIENT / CAREGIVER WILL VERBALIZE/DEMONSTRATE UNDERSTANDING OF MEASURES TO MANAGE ALTERED CARDIOVASCULAR STATUS BY 2.5.20 Goal Provider Goal - PATIENT / CAREGIVER WILL VERBALIZE/DEMONSTRATE AN ABILITY TO ADHERE TO SELF-MANAGEMENT OF ATRIAL FIBRILLATION TO MINIMIZE COMPLICATIONS AND AVOID HOSPITALIZATION BY END OF EPISODE. Goal Provider Goal - Reason for Visit [facility]END[facility] THE COMM[facility]ITY Encounters Start Date/Time End Date/Time Encounter Type Admission Type Attending Clinicians Care Facility Care Department Encounter ID Discharge Date Discharge Status Discharge Condition Discharge Reason Percent Goals Met 2020-02-06 00:00:00 2020-04-05 00:00:00 Outpatient NEW ADMISSION [facility] [id number] 2020-04-05 00:00:00 DISCHARGE TO HOME OR SELF CARE [facility] THE COMM[facility] HH OR [facility]- GOALS MET 100.00
--- NOTE | 2024-02-17 07:50 | A.OFFVIS_ITS ---
Intake Visit Reasons: 6 month follow up/ PVR Intake Note: Patient presents today follow up on: hematuria and PVR Urology Medications: finasteride, sildenafil Blood Thinner: apixaban, aspirin,cilostazol Smoker: quit 4yrs ago Medical Service Technician Required: No Accompanied by: Self / Same As Patient Allergies No Known Allergies Allergy (Verified 02/17/24 08:30) Medication List - Last Reconciled 02/17/24 by FAHAD Jimenes albuterol sulfate 90 mcg/actuation 2 puffs inhalation QID PRN apixaban (Eliquis) 2.5 mg PO BID aspirin (Adult Low Dose Aspirin) 81 mg PO DAILY blood sugar diagnostic As directed Breo Ellipta 200-25 mcg/dose (fluticasone furoate-vilanterol) 1 inh inhalation DAILY NS carvedilol (Coreg) 6.25 mg PO BID cilostazol 100 mg PO ONCE fenofibrate 160 mg PO DAILY finasteride 5 mg PO DAILY 90 days gabapentin 300 mg PO BID glipizide ER 5 mg PO DAILY insulin aspart U-100 units subcut DIRECTED insulin glargine (Basaglar KwikPen U-100 Insulin) 20 units (0.2 mL) subcut BEDTIME 30 days insulin lispro (Humalog U-100 Insulin) Less than 110 (units): 0 111 to 150 - units: 0 151 to 200 - units: 2 201 to 250 - units:4 251 to 300 - units:6 301 to 350 - units: 8 350 - units:10 ipratropium-albuterol 0.5 mg-3 mg(2.5 mg base)/3 mL 3 mL inhalation QID PRN 30 days lisinopril 5 mg PO DAILY metformin ER 1 tab PO BIDWM montelukast 10 mg PO DAILY pen needle, diabetic As directed sildenafil mg PO DIRECTED simvastatin 20 mg PO BEDTIME HPI Comments Details: Rene is a very pleasant 73-year-old male patient of Dr. Jalloh. He has a past medical history of nicotine dependence, obesity, COPD, bronchitis, PVD, hyperlipidemia, hypertension, diabetes, and peripheral arterial disease. He presents to the office today for follow-up of his gross hematuria. Of note, patient underwent an office cystoscopy during last office visit 07/22 that noted bladder to be normal, NAD. In discussion with the patient today he denies any other episodes of gross hematuria since his last office visit. He denies any bothersome urinary issues or concerns. In office urinalysis results reviewed with the patient today no microscopic hematuria noted. Previous workup has included a CT KUB 05/22 that noted no hydronephrosis, hydroureter, or calculi seen. Subcentimeter right renal cyst that requires no imaging follow-up recommended per radiology report. The bladder is unremarkable. He does have a previous smoking history 50 pack per day however quit approximately 5 years ago. He denies incontinence, nocturia, dysuria, foul smelling urine, changes to urinary stream, flank pain, fever, and or chills. He otherwise offers no other issues or concerns at this time. In review of patients PSAs are as follows: 01/18 2.1, 12/21 1.9 [facility] Medical History Personal history of nicotine dependence Obesity (BMI 30-39.9) COPD (chronic obstructive pulmonary disease) Bronchitis Femoral-popliteal bypass graft occlusion (~01/2020) PVD (peripheral vascular disease) Tubular adenoma of colon (~2002) Hyperlipidemia HTN (hypertension) DM2 (diabetes mellitus, type 2) PAD (peripheral artery disease) Surgical History History of femoropopliteal bypass (~2019) History of laryngoscopy (~2003) History of vasectomy (~1996) History of colonoscopy (~2019) History of laparoscopic cholecystectomy (~2006) History of tonsillectomy History of femoral angiogram (~2018) Family History Father No problems noted. Mother No problems noted. Social History Household Members: Children Housing: House Comment: sleeping Patient Tobacco Use Status: Former Tobacco user Years Smoked: 56 service: No Current occupational status: retired Review of Systems Const Reports no additional complaints Eyes Reports no additional complaints ENT Reports no additional complaints Card Reports as per HPI Resp Reports as per HPI GI Reports no additional complaints Reports as per HPI Musc Reports no additional complaints Neuro Reports no additional complaints Psych Reports no additional complaints Endo Reports as per HPI Cachorro/Lymph Reports no additional complaints Aller/Immun Reports no additional complaints Physical Exam Const General: cooperative, healthy appearing, comfortable, no acute distress, well developed, alert and awake Nutritional Appearance: overweight Orientation/consciousness: patient oriented x3 Limitations: ambulation with cane HEENT Head: Yes normal to inspection, Yes normocephalic and Yes atraumatic Ears: hearing grossly normal bilaterally Eyes General: appearance normal, both eyes and all related structures Neck Neck: Yes normal visual inspection and Yes trachea midline Chest Chest palpation & inspection: normal inspection of the chest Resp Effort & Inspection: normal respiratory effort and able to speak in complete sentences Cardio Rate: regular rate GI Inspection: Yes normal to inspection General: Yes no CVA tenderness Back/Spine/Pelvis Back: no CVA tenderness Skin General skin exam: no rashes or lesions noted Neuro General: patient oriented x3 Extrem General: Yes normal to inspection Psych Appearance: grossly normal and well kempt Mental Status: mental status grossly normal Speech and movement: Normal speech and movement present and Clear speech present Affect: normal affect Attitude: cooperative Thought process: Normal thought process present Thought content: Normal thought content present Insight: Fair insight present (Psych) Judgement: Fair judgement present (Psych) Office Procedures Post Void Residual Post Residual Void Post Void Residual (PVR): 38 [id number] Void Residual by ultrasound Results AMB Urinalysis, Automated UA Leukoctes 0 Tino/uL Last Edit by YimiMaster Equationabdirizak Roper on 02/17/24 08:58 UA Nitrite Last Edit by EO2 Conceptsabdirizak Roper on 02/17/24 08:58 UA Urobilinogen 0.2 mg/dL Last Edit by EO2 Conceptsabdirizak Roper on 02/17/24 08:58 UA Protein 0 mg/dL Last Edit by EO2 Conceptsabdirizak Roper on 02/17/24 08:58 UA pH 6.0 Last Edit by EO2 Conceptsabdirizak Roper on 02/17/24 08:58 UA Blood 0 Carlos/uL Last Edit by EO2 Conceptsabdirizak Roper on 02/17/24 08:58 UA Specific Sabine 1.010 Last Edit by Ольга Roper on 02/17/24 08:58 UA Ketone Negative Last Edit by Ольга Joike on 02/17/24 08:58 UA Bilirubin 0 mg/dL Last Edit by Ольга Roper on 02/17/24 08:58 UA Glucose 500 mg/dL Last Edit by Ольга Roper on 02/17/24 08:58 Results Reviewed Results Reviewed: Laboratory Last Values Urine pH (Auto) 6.0 02/17/24 08:57 Specific Sabine (Auto) 1.010 02/17/24 08:57 Urine Protein (Auto) 0 mg/dL 02/17/24 08:57 Glucose (UA)(Auto) 500 mg/dL 02/17/24 08:57 Urine Ketones (Auto) Negative 02/17/24 08:57 Urine Blood (Auto) 0 Carlos/uL 02/17/24 08:57 Urine Bilirubin (Auto) 0 mg/dL 02/17/24 08:57 Urine Urobilinogen (Auto) 0.2 mg/dL 02/17/24 08:57 Leukocyte Esterase (Auto) 0 Tino/uL 02/17/24 08:57 Assessment & Plan Assessment & Plan (1) Bladder outlet obstruction: Code(s): N32.0 - Bladder-neck obstruction Category: Medical (2) Gross hematuria: Code(s): R31.0 - Gross hematuria Category: Medical Plan In office urinalysis results reviewed with the patient today; as noted above. Patient currently denies any bothersome urinary issues or concerns. Continue finasteride and p.r.n. sildenafil as prescribed. He reports be happy with current voiding parameters. Will obtain PSA for further assessment evaluation. Discussed surveillance monitoring of PSA as well as history of gross hematuria in the setting of previous nicotine dependence as well as anticoagulation. Follow-up in 6 months with PSA and PVR; or sooner with any issues, concerns, and or questions. Orders: Orders AMB Urinalysis Automated Today Z13.9 - Encounter for screening, unspecified AMB Post Void Residual by ultrasound Today N32.0 - Bladder-neck obstruction, N39.41 - Urge incontinence Prostate Specific Antigen Today N40.0 - Benign prostatic hyperplasia without lower urinary tract symptoms Patient Instructions: The patient had an opportunity to ask questions regarding the treatment plan. All questions were answered. Physical exam, labs, and imaging were discussed and reviewed in detail. As well as risks, benefits, and discussion of treatment choices. No major barriers to understanding were identified. The patient expressed understanding and agreement with the above treatment plan. The patient was made aware they should contact our office by phone for worsening of their current condition, the appearance of new symptoms, or with any questions or concerns. Compliance is encouraged with any medications and follow up testing that is ordered. It is a privilege to be allowed the opportunity to participate in? your urological care.? Again, if you have any questions or concerns If you have any questions or concerns please do not hesitate to contact me. The office is [phone]. This note is constructed using voice recognition software. While every effort has been made to ensure accuracy real estate professional errors may have been included. Yours sincerely, FAHAD Jimenes Coding Level of Care Code Est Pt Level 3 (76502) Complex EM visit Add On G2211 Diagnoses Bladder outlet obstruction N32.0 Gross hematuria R31.0 CPT Codes Post Residual Void - PVR CPT Code: 10092-Heva Void Residual by ultrasound ([id number])
== END 2024-02-17 08:30 | disposition home or self-care (01) ==
PROVIDERS: PCP Internal Medicine; Visit Provider Nurse Practitioner Family
DX: N32.0 Bladder-neck obstruction (principal); R31.0 Gross hematuria; Z13.9 Encounter for screening, unspecified
CPT/HCPCS: 99213; G2211

== ENCOUNTER → 2024-02-17 07:40 | Outpatient (BNVA) | payer MEDICARE, OTHER, SELFPAY | PROVIDERS: PCP Internal Medicine; Visit Provider Nurse Practitioner Family | DX: N32.0 Bladder-neck obstruction (principal); R31.0 Gross hematuria; N40.1 Benign prostatic hyperplasia with lower urinary tract symptoms; N39.41 Urge incontinence | CPT/HCPCS: 51798; 81003; 99212 ==

== ENCOUNTER 2024-03-18 07:07 | Outpatient (REF) | payer MEDICARE, OTHER, SELFPAY ==
[2024-03-18 07:48] LABS: Basophils Absolute Auto 0.2 X10*3/uL (0.0-0.2); Basophils Percent Auto 1.3 % (0-2); Eosinophils Absolute Auto 2.3 X10*3/uL (0.0-0.4); Eosinophils Percent Auto 19.9 % (0-4); Hematocrit 44.4 % (42.0-52.0); Hemoglobin 14.6 g/dl (14.0-18.0); Imm Gran Abs Auto 0.07 X10*3/uL (0.00-0.03); Imm Gran Pct Auto 0.6 % (0.0-0.4); Lymphocytes Absolute Auto 2.7 X10*3/uL (1.2-4.9); MANUAL DIFF FLAG SCAN; Mean Corpuscular HGB Conc 32.9 g/dl (31.0-36.0); Mean Corpuscular Hemoglobin 28.1 pg (27.0-33.0); Mean Corpuscular Volume 85.4 fL (80.0-98.0); Mean Platelet Volume 10.3 fL (9.4-12.4); Monocytes Absolute Auto 0.8 X10*3/uL (0.1-1.2); Monocytes Percent Auto 6.5 % (2-11); Neutrophils Absolute Auto 5.6 x10*3/uL (2.0-8.3); Neutrophils Percent Auto 48.7 % (45-73); Platelet Count 307 X10*3/uL (160-400); Red Cell Distribution Width 14.2 % (11.0-16.0); SCAN SMEAR FLAG 1; White Blood Count 11.5 X10*3/uL (4.8-10.8)
[2024-03-18 08:05] LABS: Estimated Average Glucose 243 mg/dL; Hemoglobin A1C 338.4457 umol/L; Hemoglobin A1c % 10.1 % (<6.0); Total Hemoglobin (HGBA1C) 3909.9527 umol/L
[2024-03-18 08:17] LABS: Alanine Aminotransferase 15 U/L (0-40); Albumin Level 4.2 g/dL (3.5-5.0); Alkaline Phosphatase 71 U/L (39-117); Anion Gap 12 (12-20); Aspartate Amino Transferase 16 U/L (5-37); Bilirubin Total 0.6 mg/dL (0.0-1.0); Blood Urea Nitrogen 18 mg/dL (9-16); Calcium 9.7 mg/dL (8.4-10.2); Carbon Dioxide 25 mmol/L (22-29); Chloride 107 mmol/L (96-108); Estimated Glomerular Filt Rate 51; Glucose Random 230 mg/dL (60-115); Potassium 3.9 mmol/L (3.3-5.1); Sodium 140 mmol/L (135-145); Total Protein 7.7 g/dL (6.5-8.0)
[2024-03-18 08:23] LABS: SLIDE REVIEW VERIFIED
== END 2024-03-18 07:08 | disposition home or self-care (01) ==
LOC: HO.LAB 07:07
PROVIDERS: PCP Internal Medicine; Visit Provider Internal Medicine
DX: I73.9 Peripheral vascular disease, unspecified (principal); J44.9 Chronic obstructive pulmonary disease, unspecified; I10 Essential (primary) hypertension; E11.9 Type 2 diabetes mellitus without complications; I48.0 Paroxysmal atrial fibrillation
CPT/HCPCS: 36415; 80053; 83036; 85025

== ENCOUNTER 2024-06-06 06:33 | Outpatient (REF) | payer MEDICARE, OTHER, SELFPAY ==
--- NOTE | ~2024-06-06 | CT_ITS ---
EXAMINATION: CT LUNG SCREENING HISTORY: Smoking history TECHNIQUE: Low dose axial images were obtained from the sternal notch to upper abdomen without IV contrast per standard departmental protocol. Sagittal and coronal reformatted images were also obtained and reviewed. One or more of the following techniques was used for dose reduction: Automated exposure control, adjustment of the mA and/or kV according to patient size, use of iterative reconstruction technique. DLP: 69 mGy-cm COMPARISON: Comparison is made with the prior examination dated 05/25/2023. FINDINGS: Lung nodules: Again seen are scattered punctate nodules. There is a 4 mm irregular opacity in the right upper lobe (series 4, image 48) which may be inflammatory in nature. Emphysema: mild Coronary Calcification: moderate Aortic Arch Calcification: moderate Potentially Significant Incidentals : none Additional Chest Findings: There is no pleural or pericardial effusion. No mediastinal or axillary lymphadenopathy is identified. There is a small to moderate hiatal hernia. Visualized upper abdomen: The visualized portions of the liver, spleen, and adrenals have an unremarkable unenhanced appearance. CT/CT lung screening IMPRESSION: No suspicious pulmonary nodules are identified. LUNG-RADS ASSESSMENT: Lung-RADS 2: Benign MANAGEMENT: Continue annual screening with LDCT in 12 months Category S: N/A Electronically signed by: Srini Jackson MD 06/06/2024 10:02 AM EDT
--- OUTSIDE RECORDS SUMMARY | 2024-06-06 06:37 | XMS_ITS | Patient Health Record ---
Author Organization [facility] Address [address] [place] [address] Care Team Providers Care Supervisor Stripping Name Role Phone Juanito Jalloh MD Primary Care Provider Unavaila Quincy Mariscal Jr Unavailable Quincy Boateng Unavailable Unavailable Allergies No Known Allergies Reason For Referral No Information Medications Medication SIG (Take, Route, Frequency, Duration) Notes Start Date End Date Status Cilostazol 100 MG 1 tablet 30 minutes before or 2 hours after breakfast and dinner Orally Twice a day for 30 day(s) Active Gabapentin 300 MG TAKE 1 CAPSULE BY MO [facility] TWICE A DAY Oral for 90 Active Albuterol Sulfate HFA 108 (90 Base) MCG/ACT 1 puff as needed Inhalation every 4 hrs Active Montelukast Sodium 10 MG 1 tablet Orally Once a day for 30 day(s) Active Eliquis 2.5 MG as directed Orally Active Lisinopril 5 MG TK 1 T PO QD Oral for 90 Active Carvedilol 6.25 MG TK 1 T PO BID Oral for 90 Active Simvastatin 20 MG TK 1 T PO QHS Oral for 90 Active metFORMIN HCl ER 500 MG TK 1 T PO QD Oral for 90 Active MiraLax (colon prep) 8.3 ounce ((238) grams mixed with Gatorade or Crystal Light orally begin at 5:00 p.m. the day before the procedure for 1 day 10/26/2022 Active Aspir-81 81 MG 1 tablet Orally Once a day 09/14/2013 Active Fenofibrate 160 MG 1 tablet Orally Once a day for 30 day(s) Active Clopidogrel Bisulfate 75 MG 1 tablet Ora lly Once a day for 30 day(s) Active glipiZIDE ER 5 MG TAKE 1 TABLET BY KELLY TH EVERY DAY Oral for 90 Active Breo Ellipta 100-25 MCG/ACT 1 puff Inhal ation Once a day Active Immunizations Vaccine Route Administration Date Status Comme nts Influenza Unknown 10/18/2019 Administered Influenza Unknown 01/20/2022 Administered Social History Tobacco Use: Social History Observation Description Date Details (start date - stop date) Former Smoker NA - NA Tobacco Use/Smoking Question Answer Notes Patient is a former smoker How long has it been since you last smoked? 1-5 years Alcohol Screen Question Answer Notes Did you have a drink containing alcohol in the p ast year? No Points 0 Interpretation Negative Problems Problem Type SNOMED Code ICD Code Onset Dates Problem Status W/U Status Risk Notes Problem 522970641 Colon cancer screening (Z12.11) Active confirmed Problem 35059223 Rectal bleeding (K62.5) Active confirmed Problem History of polyp of colon (situation) (544480363) Personal history of colonic polyps (Z86.010) Active confirmed Problem 322951885 intermediate (current) use of antithrombotic s/antiplatelet s (Z79.02) Active confirmed Problem 680281412 Long-term use of aspirin therapy (Z79.82) Active confirmed Plan Of Treatment Future Test Test Name Order Date COLONOSCOPY 09/14/2013 COLONOSCOPY 10/25/2019 COLONOSCOPY 10/26/2022 Insurance Providers Payer Name Payer Address Payer Phone Subscriber Number Group Number Insured Name Patient Relationship to Insured Coverage Start Date Coverage End Date MEDICARE OF [place] [address] [place] [address] [id number] NATO BABCOCK Self - patient is the insured [facility] [address] [place] [address] [phone] [id number] NATO BABCOCK Self - patient is the insured Medical (General) History Medical History History ICD Code colonoscopy 11/18, multiple tubular adeno mas, three-year followup Elevated cholesterol Hypertension Diabetes mellitus, Type 2 Peripheral vascular disease/history of b lood clots Surgical History Surgery Date(Month/Year) Rotator cuff surgery cholecystectomy angioplasty cyst removal in ear left knee arthroscopy Left SFA stent 12/2018 Right femoropopliteal bypass 03/2018
--- OUTSIDE RECORDS SUMMARY | 2024-06-06 06:37 | XMS_ITS | Patient Health Record ---
Author Organization [facility] Address [address] [place] [address] Care Team Providers Care Commercial Loan Administrator Name Role Phone Juanito Jalloh MD Primary Care Provider Zafar Mckeon Unavailable [phone] Allergies No Known Allergies Reason For Referral No Information Medications Medication SIG (Take, Route, Frequency, Duration) Notes Start Date End Date Status Lisinopril 5 MG Oral for 90 Ac tive metFORMIN HCl ER 500 MG Oral for 90 Active glipiZIDE ER 5 MG Oral for 90 Active Gabapentin 300 MG Oral for 90 Active Eliquis Active Carvedilol 6.25 MG Oral for 90 Active Clopidogrel & Aspirin Active Night Splint AFO - L1930 as directed 12/18/2019 Active Physical Therapy . . . 2-3x/week for 3-4 weeks Active Simvastatin 20 MG Oral for 90 Active Low-Dose Aspirin 81 MG 11/13/2019 Active Immunizations Vaccine Route Administration Date Status Comme nts COVID-19 Moderna Vaccine Unknown 05/23/2020 Administered Second dose-05/15 Influenza Unknown 10/31/2019 Administered Social History Tobacco Use: Social History Observation Description Date Details (start date - stop date) Never Smoker NA - NA Tobacco Use/Smoking Question Answer Notes Are you a: nonsmoker Additional Findings: Tobacco Non-User Cu rrent non-smoker, but past smoking history unknown Alcohol Screen Question Answer Notes Did you have a drink containing alcohol in the p ast year? No Points 0 Interpretation Negative Tobacco use other than smoking: Question Answer Notes Are you an other tobacco user? No Problems Problem Type SNOMED Code ICD Code Onset Dates Problem Status W/U Status Risk Notes Problem Polyneuropathy due to type 2 diabetes mellitus (837174926) Type 2 diabetes mellitus with diabetic polyneuropathy (E11.42) Active confirmed Problem Polyneuropathy due to diabetes mellitus type I (792003893) Type 1 diabetes mellitus with diabetic polyneuropathy (E10.42) Active confirmed Plan Of Treatment Pending Test Test Name Order Date X ray : Foot, left 3V 12/18/2019 90619-QZAM SKIN LESIONS, 2 TO 4 02/07/20 20 93289-ASLM SKIN LESIONS, 2 TO 4 05/24/19 21 56907-ZGNF SKIN LESIONS, 2 TO 4 08/23/19 21 Z2316-FJAQWCRW DYSTROPHIC NAILS ANY # F5739-LQJNWXOD DYSTROPHIC NAILS ANY # C5856-DNKSOFAD DYSTROPHIC NAILS ANY # Insurance Providers Payer Name Payer Address Payer Phone Subscriber Number Group Number Insured Name Patient Relationship to Insured Coverage Start Date Coverage End Date Medicare National [employer] [address] [place] [address] [id number] Rene Saxena Self - patient is the insured [facility] [address] [place] [address] [phone] [id number] Rene Saxena Self - patient is the insured Medical (General) History Medical History History ICD Code Back,Hip,and Knee pain type II diabetes Gall bladder problems High blood pressure Poor circulation Rheumatic fever Vascular phlebitis (clots) Measles Mumps Vascular grafts Surgical History Surgery Date(Month/Year) rotator cuff tear repair colonoscopy knee surgery foot surgery Throat cyst Stent left 11/23/2018 bypass surgery right leg 04/03/2019 Hospitalization History Reason Date(Month/Year) Breathing Issues , high sugar, bronchiti s 4 days 01/29/20
--- OUTSIDE RECORDS SUMMARY | 2024-06-06 06:37 | XMS_ITS ---
Author Organization [facility] Address [address] [place] [address] Care Team Providers Care Guitar Repairer Name Role Phone Juanito Jalloh MD Primary Care Provider Unavaila Quincy Mariscal Jr Unavailable Quincy Boateng Unavailable Unavailable REASON FOR VISIT pathology Encounters Encounter Location Date Provider Diagnosis [facility] [address] [place] [phone] 12/24/2022 Quincy Boateng Jr Plan Of Treatment No Information Progress Notes * NATO BABCOCK LDOB: 0 (72 yo M)Acc No.[id number]:12/24/2022 Patient:?YOKONATO :1950???Age:72 Y???Sex:Male Address:[address] [place] [id number] * true * Date:? Generated for Vali oli/Emmy/eTransmitting on:?06/06/2024 06:37 AM EDT
--- OUTSIDE RECORDS SUMMARY | 2024-06-06 06:37 | XMS_ITS ---
Author Organization [facility] Address [address] [place] [address] Care Team Providers Care Stump Shooter Name Role Phone Juanito Jalloh MD Primary Care Provider UnavailQuincy Monaco Jr Unavailable [phone] Quincy Boateng Unavailable Unavailable REASON FOR VISIT screening Problems Problem Type SNOMED Code ICD Code Onset Dates Problem Status W/U Status Risk Notes Problem History of polyp of colon (situation) (942091087) Personal history of colonic polyps (Z86.010) Active confirmed Encounters Encounter Location Date Provider Diagnosis [facility] [address] [place] [phone] 12/15/2022 Quincy Boateng Jr Encounter for screening colonoscopy Z12.11 ; Personal history of colonic polyps Z86.010 and Colon polyps K63.5 Assessments Encounter Date Diagnosis (ICD Code) Assessment Notes Treatment Notes Treatment Clinical Notes Section Notes 12/15/2022 Encounter for screening colonoscopy (ICD-10 - Z12.11) 12/15/2022 Personal history of colonic polyps (ICD-10 - Z86.010) 12/15/2022 Colon polyps (ICD-10 - K63.5) Plan Of Treatment No Information Progress Notes * NATO BABCOCK LDOB: 0 (74 yo M)Acc No.[id number]:12/15/2022 COLON WITH MAC Patient:?YOKO NATO Sahu Provider:?Quincy Boateng MD :1950???Age:72 Y???Sex:Male Clem e:12/15/2022 Address:[address] [place] [address] [phone] Pcp:Juanito Jalloh MD Subjective: * Chief Complaints: * ???1. Screening. * Medical History:? Objective: * Vitals:? Assessment: * Assessment: 1.?Encounter for screening c olonoscopy - Z12.11 (Primary)???2.?Personal history of colonic polyps - Z86.010???3.?Colon polyps - K63.5??? Plan: * Treatment: * Procedure Codes:?G0105 COLOR EC CANCR SCR; COLNSCPY HI RISK, 65893 COLONOSCOPY AND BIOPSY, 0529F INTRVL 3+YRS PTS CLNSCP DOCD * * The named appointment provid er may or may not be the originator of this progress note, and it is not deemed complete until electronically signed by the appointment provider. Sign off status: Pending * Provider:?Quincy Boateng MD Date:?1 Generated for Marita baird/Emmy/Albertoitting on:?06/06/2024 06:37 AM EDT
[2024-06-06 06:43] LABS: MANUAL DIFF FLAG NO
[2024-06-06 07:47] LABS: Basophils Absolute Auto 0.1 X10*3/uL (0.0-0.2); Eosinophils Absolute Auto 0.3 X10*3/uL (0.0-0.4); Eosinophils Percent Auto 3.7 % (0-4); Hematocrit 44.1 % (42.0-52.0); Hemoglobin 14.6 g/dl (14.0-18.0); Imm Gran Abs Auto 0.03 X10*3/uL (0.00-0.03); Imm Gran Pct Auto 0.3 % (0.0-0.4); Lymphocytes Absolute Auto 2.1 X10*3/uL (1.2-4.9); Lymphocytes Percent Auto 23.6 % (20-40); Mean Corpuscular HGB Conc 33.1 g/dl (31.0-36.0); Mean Corpuscular Hemoglobin 28.3 pg (27.0-33.0); Mean Corpuscular Volume 85.5 fL (80.0-98.0); Mean Platelet Volume 10.6 fL (9.4-12.4); Monocytes Absolute Auto 0.9 X10*3/uL (0.1-1.2); Monocytes Percent Auto 9.9 % (2-11); Neutrophils Absolute Auto 5.4 x10*3/uL (2.0-8.3); Neutrophils Percent Auto 61.5 % (45-73); Platelet Count 359 X10*3/uL (160-400); Red Blood Count 5.16 X10*6/uL (4.60-5.80); Red Cell Distribution Width 14.1 % (11.0-16.0); White Blood Count 8.7 X10*3/uL (4.8-10.8)
[2024-06-06 08:38] LABS: Prostate Specific Antigen 0.56 ng/mL (<0.05-4.0)
[2024-06-06 08:40] LABS: Estimated Average Glucose 263 mg/dL; Hemoglobin A1c % 10.8 % (<6.0); Total Hemoglobin (HGBA1C) 3867.3125 umol/L
[2024-06-06 09:20] LABS: Creatinine Urine 66.65 mg/dL; Microalbumin Urine < 5.0 mg/L
[2024-06-06 10:01] LABS: Alanine Aminotransferase 17 U/L (0-40); Albumin Level 4.1 g/dL (3.5-5.0); Alkaline Phosphatase 68 U/L (39-117); Anion Gap 13 (12-20); Aspartate Amino Transferase 14 U/L (5-37); Bilirubin Total 0.6 mg/dL (0.0-1.0); Blood Urea Nitrogen 21 mg/dL (9-16); Carbon Dioxide 23 mmol/L (22-29); Chloride 106 mmol/L (96-108); Cholesterol 166 mg/dL (<200); Estimated Glomerular Filt Rate 42; Glucose Fasting 359 mg/dL (60-99); HDL Cholesterol 31 mg/dL (>40); LDL Cholesterol Calculated 74 mg/dL (<100); Potassium 3.9 mmol/L (3.3-5.1); Sodium 138 mmol/L (135-145); Total Protein 7.2 g/dL (6.5-8.0); Triglycerides 307 mg/dL (<150)
== END 2024-06-06 06:34 | disposition home or self-care (01) ==
LOC: HO.CT 06:33
PROVIDERS: Absent Provider Internal Medicine; PCP Internal Medicine; Visit Provider Physician Assistant Medical
DX: Z12.2 Encounter for screening for malignant neoplasm of respiratory organs (principal); Z87.891 Personal history of nicotine dependence; E11.9 Type 2 diabetes mellitus without complications; E78.00 Pure hypercholesterolemia, unspecified; I48.0 Paroxysmal atrial fibrillation; Z12.5 Encounter for screening for malignant neoplasm of prostate
CPT/HCPCS: 36415; 71271; 80053; 80061; 82043; 82570; 83036; 84153; 85025

== ENCOUNTER → 2024-06-06 06:56 | Outpatient (BNV) | payer MEDICARE, OTHER, SELFPAY | PROVIDERS: Absent Provider Internal Medicine; PCP Internal Medicine; Visit Provider Radiology Diagnostic Radiology | DX: Z87.891 Personal history of nicotine dependence (principal) | CPT/HCPCS: 71271 ==

== ENCOUNTER 2024-06-20 13:45 | Outpatient (AMB) | payer MEDICARE, OTHER, SELFPAY ==
--- NOTE | 2024-06-20 13:48 | MHC.OFFWIV ---
Intake Vital Signs 06/20/24 13:50 Weight 226 lb BP 130/90 H Blood Pressure Location Lt brachial Position Sitting Pulse 95 Pulse Source Pulse Oximeter Pulse Oximetry (%) 93 Oxygen Delivery Method Room Air Intake Visit Reasons: EP Cyst on Intake Note: Patient here for cyst in groin area that has been present for about 3 weeks. Patient Tobacco Use Status: Former Tobacco user Allergies No Known Allergies Allergy (Verified 06/20/24 13:51) Do you need a note to return to daycare/school/sports/work: No HPI HPI Comments History of Present Illness Details This is a 74-year-old male with a past medical history of peripheral vascular disease currently maintained on Eliquis, asthma, hypertension, BPH and ejm-bbidhsk-wiseujova diabetes presenting for evaluation of a painful lesion in his right groin that has been present for the past 3 weeks. Patient states that this has occurred before. Patient used warm compresses with Epsom salts for the 1st 10 days and the cyst expressed itself which she describes as bloody. Patient states thereafter the lesion grew again and became more painful. Patient denies having any fevers or chills. [facility] Medical History (Updated 06/20/24 @ 14:11 by Caterina Knight PA-C) Personal history of nicotine dependence Obesity (BMI 30-39.9) COPD (chronic obstructive pulmonary disease) Bronchitis Femoral-popliteal bypass graft occlusion (~01/2020) PVD (peripheral vascular disease) Tubular adenoma of colon (~2002) Hyperlipidemia HTN (hypertension) DM2 (diabetes mellitus, type 2) PAD (peripheral artery disease) Surgical History History of femoropopliteal bypass (~2019) History of laryngoscopy (~2003) History of vasectomy (~1996) History of colonoscopy (~2019) History of laparoscopic cholecystectomy (~2006) History of tonsillectomy History of femoral angiogram (~2018) Family History Father No problems noted. Mother No problems noted. Social History Household Members: Children Housing: House Comment: sleeping Patient Tobacco Use Status: Former Tobacco user Years Smoked: 56 service: No Current occupational status: retired Review of Systems Const All systems reviewed & are unremarkable except as noted in HPI and below Denies chills, Denies fever(s) and Denies weakness Eyes Reports no additional complaints ENT Reports no additional complaints Card Reports no additional complaints Resp Reports no additional complaints GI Reports no additional complaints Reports no additional complaints Musc Reports no additional complaints Skin/Breast Reports system reviewed and no additional complaints, except as documented Neuro Reports no additional complaints and Denies weakness Psych Reports no additional complaints Endo Reports no additional complaints Cachorro/Lymph Reports no additional complaints Aller/Immun Reports no additional complaints Physical Exam Vital Signs: Last Vital Signs Pulse 95 06/20/24 13:50 BP 130/90 H 06/20/24 13:50 Pulse Ox 93 06/20/24 13:50 Oxygen Delivery Method Room Air 06/20/24 13:50 Const General: cooperative, healthy appearing, comfortable, no acute distress, well developed, alert, awake and Physically active; No acute distress, in distress or ill appearing Nutritional Appearance: well nourished Orientation/consciousness: patient oriented x3 Limitations: no limitations Skin Other: There is a 3cm x 2cm raised, tender, fluctuant lesion in the right inguinal region, proximal right medial thigh. No surrounding erythema, no active exudates or drainage. Neuro General: patient oriented x3 Psych Appearance: grossly normal Mental Status: mental status grossly normal Insight: Good insight present (Psych) Judgement: Good judgement present (Psych) Assessment & Plan Assessment & Plan (1) Abscess of right thigh: Comment: Patient is well-appearing and ambulating independently without difficulty. Patient will continue with warm compresses 4 times daily and take antibiotic therapy. Patient is encouraged to return for follow up and possible incision and drainage in 1 week if his lesion has not completely resolved. Code(s): L02.415 - Cutaneous abscess of right lower limb Plan: Warm compresses 4 times daily, doxycycline b.i.d. x7 days. Medications: New doxycycline hyclate 100 mg PO BID 14 caps 0RF Coding Level of Care Code Est Pt Level 3 (86145) Diagnoses Abscess of right thigh L02.415 Time Spent (min) 20
[2024-06-20 13:50] VITALS: BP 130/90; PULSE 95; O2SAT 93
--- OUTSIDE RECORDS SUMMARY | 2024-06-20 16:23 | XMS_ITS | Patient Health Record ---
Author Organization [facility] Address [address] [place] [address] Care Team Providers Care Parts Counter Clerk Name Role Phone Juanito Jalloh MD Primary Care Provider Zafar Mckeon Unavailable [phone] Allergies No Known Allergies Reason For Referral [...] Polyneuropathy due to type 2 diabetes mellitus (201051866) Type 2 diabetes mellitus with diabetic polyneuropathy (E11.42) Active confirmed Problem Polyneuropathy due to diabetes mellitus type I (902777642) Type 1 diabetes mellitus with diabetic polyneuropathy (E10.42) Active confirmed Plan Of Treatment Pending Test Test Name Order Date X ray : Foot, left 3V 12/18/2019 22058-WEEF SKIN LESIONS, 2 TO 4 02/07/20 20 04810-KJXW SKIN LESIONS, 2 TO 4 05/24/19 21 83510-AFPY SKIN LESIONS, 2 TO 4 08/23/19 21 [id number] DYSTROPHIC NAILS ANY # N2827-NYUQPAKS DYSTROPHIC NAILS ANY # K1701-TNROVRJS DYSTROPHIC NAILS ANY # Insurance Providers Payer Name Payer Address Payer Phone Subscriber Number Group Number Insured Name Patient Relationship to Insured Coverage Start Date Coverage End Date Medicare National Govt Svcs Inc [address] [place] [address] [id number] Rene Saxena Self - patient is the insured [facility] [address] [place] [address] [phone] [id number] Rene Saxena Self - patient is [...]
--- OUTSIDE RECORDS SUMMARY | 2024-06-20 16:23 | XMS_ITS | Patient Health Record ---
Author Organization [facility] Address [address] [place] [address] Care Team Providers Care Bss Solution Architect Name Role Phone Juaniot Jalloh MD Primary Care Provider Unavaila Quincy [...] 300 MG TAKE 1 CAPSULE BY MO [facility] TWICE A DAY Oral for 90 Active [...] Problem Status W/U Status Risk Notes Problem 442292286 Colon cancer screening (Z12.11) Active confirmed Problem 49113359 Rectal bleeding (K62.5) Active confirmed Problem History of polyp of colon (situation) (650395789) Personal history of colonic polyps (Z86.010) Active confirmed Problem 869710777 [facility] (current) use of antithrombotic s/antiplatelet s (Z79.02) Active confirmed Problem 039140622 Long-term use of aspirin therapy (Z79.82) Active confirmed Plan Of Treatment Future Test Test Name Order Date COLONOSCOPY 09/14/2013 COLONOSCOPY 10/25/2019 COLONOSCOPY 10/26/2022 Insurance Providers Payer Name Payer Address Payer Phone Subscriber Number Group Number Insured Name Patient Relationship to Insured Coverage Start Date Coverage End Date MEDICARE OF [place] [address] [place] [address] [id number] [employer] BABCOCK Self - patient is the insured [facility] [address] [place] [phone] [id number] [employer] BABCOCK Self - patient is the [...]
--- OUTSIDE RECORDS SUMMARY | 2024-06-20 16:23 | XMS_ITS ---
Author Organization [facility] Address [address] [place] [address] Care Team Providers Care Yarn Conditioner Name Role Phone Juanito Jalloh MD Primary Care Provider Unavaila Quincy Mariscal Jr Unavailable Quincy Boateng Unavailable Unavailable REASON FOR VISIT pathology Encounters Encounter Location Date Provider Diagnosis [facility] [address] [place] [id number] 12/24/2022 Quincy Boateng Jr Plan Of Treatment No Information Progress Notes * NATO BABCOCK LDOB: 0 (72 yo M)Acc No.[id number]:12/24/2022 Patient:?YOKONATO :1950???Age:72 Y???Sex:Male Address:[address] [place] [address] * true * Date:? Generated for Vali oli/Emmy/eTransmitting on:?06/20/2024 04:23 PM EDT
== END 2024-06-20 14:49 | disposition home or self-care (01) ==
PROVIDERS: PCP Internal Medicine; Visit Provider Physician Assistant
DX: L02.415 Cutaneous abscess of right lower limb (principal)

== ENCOUNTER → 2024-06-20 13:45 | Outpatient (BNVA) | payer MEDICARE, OTHER, SELFPAY | PROVIDERS: PCP Internal Medicine; Visit Provider Physician Assistant | DX: L02.415 Cutaneous abscess of right lower limb (principal) | CPT/HCPCS: 99212 ==

== ENCOUNTER 2024-07-20 08:44 | Outpatient (AMB) | payer MEDICARE, OTHER, SELFPAY ==
[2024-07-20 08:42] VITALS: BP 132/74; PULSE 94; TEMP 36.5; O2SAT 97; BMI 32.9
--- NOTE | 2024-07-20 08:42 | MHC.PC.OV ---
Vital Signs 07/20/24 08:42 Height 5 ft 10 in Weight 229 lb BMI 32.9 BP 132/74 Blood Pressure Location Lt brachial Position Sitting Pulse 94 Pulse Source Pulse Oximeter Temp 97.7 F Temp Source Axillary Pulse Oximetry (%) 97 Oxygen Delivery Method Room Air Intake Visit Reasons: Routine Cable Reeler Required: No Accompanied by: Self / Same As Patient Allergies No Known Allergies Allergy (Verified 07/20/24 08:43) Medication List - Last Reconciled 07/20/24 by Gloria Johnson MD albuterol sulfate 90 mcg/actuation 2 puffs inhalation QID PRN apixaban (Eliquis) 2.5 mg PO BID 90 days aspirin (Adult Low Dose Aspirin) 81 mg PO DAILY blood sugar diagnostic As directed Breo Ellipta 200-25 mcg/dose (fluticasone furoate-vilanterol) 1 inh inhalation DAILY NS carvedilol (Coreg) 6.25 mg PO BID cilostazol 100 mg PO ONCE empagliflozin (Jardiance) 10 mg PO DAILY fenofibrate 160 mg PO DAILY finasteride 5 mg PO DAILY 90 days gabapentin 300 mg PO BID glipizide ER 5 mg PO DAILY insulin glargine (Basaglar KwikPen U-100 Insulin) 20 units (0.2 mL) subcut BEDTIME 30 days insulin lispro (Humalog U-100 Insulin) Less than 110 (units): 0 111 to 150 - units: 0 151 to 200 - units: 2 201 to 250 - units:4 251 to 300 - units:6 301 to 350 - units: 8 350 - units:10 ipratropium-albuterol 0.5 mg-3 mg(2.5 mg base)/3 mL 3 mL inhalation QID PRN 30 days lisinopril 5 mg PO DAILY metformin ER 1 tab PO BIDWM montelukast 10 mg PO DAILY pen needle, diabetic As directed sildenafil 50 mg PO DIRECTED simvastatin 20 mg PO BEDTIME Tobacco use date assessed: 07/20/24 Fall risk assessment: No Falls in past year Last assessed Fall Risk: 07/20/24 Dental Screening Dental Screen Date: 07/20/24 Did you have a dental visit in the last 12 months?: No Did you have a dental problem in the last 6 months where you did not have access to dental care?: No HPI HPI Comments History of Present Illness Details This is a 74-year-old male with a past medical history of CAD, p afib, PVD on Eliquis, asthma, COPD, hypertension, BPH, DM and fne-owgwimq-uniryrybr diabetes presenting for follow up. He was seen by PCP in [facility]. DM: metformin 500mg bid, glipizide, humalog, basaglar, jardiance. A1C 10.8 06/06/2024 CV: Follows with vascular. Has not seen cardiology in awhile ROS CONSTITUTIONAL: Denies weight loss, fever and chills. HEENT: Denies changes in vision and hearing. RESPIRATORY: Denies SOB and cough. CV: Denies palpitations and CP GI: Denies abdominal pain, nausea, vomiting and diarrhea. : Denies dysuria and urinary frequency. MSK: Denies new myalgia and joint pain. SKIN: Denies rash and pruritus. NEUROLOGICAL: Denies headache PSYCHIATRIC: Denies recent changes in mood. PHYSICAL EXAM: GENERAL: Alert and oriented x 3. NAD EYES: EOMI. Anicteric. HENT: Moist mucous membranes. No scleral icterus. No cervical lymphadenopathy. LUNGS: Clear to auscultation bilaterally. CARDIOVASCULAR: Regular rate and rhythm. No murmur. No JVD. ABDOMEN: Soft, non-tender +bs EXTREMITIES: No edema. Non-tender. SKIN: No rashes or lesions. Warm. NEUROLOGIC: No focal neurological deficits. CN II-XII grossly intact PSYCHIATRIC: Cooperative. Appropriate mood and affect [facility] Medical History Personal history of nicotine dependence Obesity (BMI 30-39.9) COPD (chronic obstructive pulmonary disease) Bronchitis Femoral-popliteal bypass graft occlusion (~01/2020) PVD (peripheral vascular disease) Tubular adenoma of colon (~2002) Hyperlipidemia HTN (hypertension) DM2 (diabetes mellitus, type 2) PAD (peripheral artery disease) Surgical History History of femoropopliteal bypass (~2019) History of laryngoscopy (~2003) History of vasectomy (~1996) History of colonoscopy (~02/10/23) History of laparoscopic cholecystectomy (~2006) History of tonsillectomy History of femoral angiogram (~2018) Family History (Updated 07/20/24 @ 08:57 by Helen Garza MA) Father No problems noted. Mother No problems noted. Social History Household Members: Children Housing: House Comment: sleeping Patient Tobacco Use Status: Former Tobacco user Years Smoked: 56 e-Cigarette/Vaping Use: Former Use service: No Current occupational status: retired Cognitive needs: No Hearing needs: No Vision needs: No Questionnaire PHQ-9 Over the last 2 weeks, how often have you been bothered by any of the following problems? 1. Little interest or pleasure in doing things: not at all 2. Feeling down, depressed, or hopeless: not at all 3. Trouble falling or staying asleep, or sleeping too much: not at all 4. Feeling tired or having little energy: not at all 5. Poor appetite or overeating: not at all 6. Feeling bad about yourself - or that you are a failure or have let yourself or your family down: not at all 7. Trouble concentrating on things, such as reading the newspaper or watching television: not at all 8. Moving or speaking so slowly that other people could have noticed. Or the opposite - being so fidgety or restless that you have been moving around a lot more than usual: not at all 9. Thoughts that you would be better off or of hurting yourself in some way: not at all Total score: 0 Depression Screening Interpretation: Negative Depression Screening Done: Yes 46054 - PHQ-9 Billing: Yes Source: Developed by Drs. Srini Lomeli, Melanie Sylvester, Wes Bustamante and colleagues, with an educational madeleine from [employer]. Thrive Questionnaire Date Thrive assessed: 07/20/24 I am a: Patient Within the past 12 months, did the food you bought not last and you didn't have the money to get more?: Never true Within the past 12 months, did you worry whether your food would run out before you got money to buy more?: Never true Do you have trouble paying for medicines?: No Do you have trouble getting transportation to medical appointments?: No Do you have trouble paying your heating and electricity bill?: No Do you have trouble taking care of your child, family member or friend?: No Do you have trouble with day-to-day activities such as bathing, preparing meals, shopping, managing finances, etc.?: No Are you currently unemployed and looking for a job?: No Are you interested in more education?: No THRIVE Score: 0 AUDIT C Alcohol Use Questionnaire (AUDIT-C) 1. How often do you have a drink containing alcohol?: Monthly or less 2. How many drinks containing alcohol do you have on a typical day when you are drinking?: 1 or 2 3. How often do you have six or more drinks on one occasion?: Less than monthly Total Score: 2 GALINA-7 AMB Questionnaire GALINA-7 Date GALINA - 7 assessed: 07/20/24 Feeling nervous, anxious, or on edge: 0 = Not at all Not being able to stop or control worryin = Not at all Worrying too much about different things: 0 = Not at all Trouble relaxin = Not at all Being so restless that it is hard to sit still: 0 = Not at all Becoming easily annoyed or irritable: 0 = Not at all Feeling afraid as if something awful might happen: 0 = Not at all Total GALINA-7 score (0-4 normal; 5-9 mild; 10-14 moderate; 15-21 severe): 0 Source: Developed by Drs. Srini Lomeli, Melanie Sylvester, Wes Bustamante and colleagues, with an educational madeleine from [employer]. Physical exam (Primary Care) Vital Signs: Last Vital Signs Temp 97.7 F 07/20/24 08:42 Pulse 94 07/20/24 08:42 BP 132/74 07/20/24 08:42 Pulse Ox 97 07/20/24 08:42 Oxygen Delivery Method Room Air 07/20/24 08:42 BMI result Body Mass Index 32.9 Tobacco/Smoking Status: Tobacco use Status Tobacco use date assessed 07/20/24 07/20/24 08:44 Patient Tobacco Use Status Former Tobacco user 07/20/24 08:44 e-Cigarette/Vaping Use Former Use 07/20/24 08:44 PHQ-9: PHQ-9 Score PHQ-9: Total score 0 07/20/24 11:32 Depression Screening Interpretation: Negative Thrive Assessment: Date of Thrive Assessment Date Thrive assessed 07/20/24 07/20/24 08:44 Coding Level of Care Code New Pt Level 4 (23547) Complex EM visit Add On G2211 Diagnoses Type 2 diabetes mellitus with hyperglycemia, with long-term current use of insulin E11.65; Z79.4 Diabetes mellitus type: type 2 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 mellitus veneer 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 insulin use: with nursing home use Diabetes mellitus complication status: with hyperglycemia Chronic obstructive pulmonary disease, unspecified COPD type J44.9 COPD type: unspecified COPD PAD (peripheral artery disease) I73.9 Additional Codes PHQ-9 - 77538 - PHQ-9 Billing: Yes ([id number]) Assessment & Plan Assessment & Plan (1) Diabetes: Code(s): E11.9 - Type 2 diabetes mellitus without complications Category: Medical Qualifiers: Diabetes mellitus type: type 2 Diabetes mellitus veneer clipper insulin use: with nursing home use Diabetes mellitus complication status: with hyperglycemia Qualified Code(s): E11.65 - Type 2 diabetes mellitus with hyperglycemia; Z79.4 - tourist cabin keeper (current) use of insulin (2) COPD (chronic obstructive pulmonary disease): Comment: He has chronic obstructive pulmonary disease related to his previous smoker. Remains very stable, No acute exacerbations. Code(s): J44.9 - Chronic obstructive pulmonary disease, unspecified Category: Medical Qualifiers: COPD type: unspecified COPD Qualified Code(s): J44.9 - Chronic obstructive pulmonary disease, unspecified (3) PAD (peripheral artery disease): Code(s): I73.9 - Peripheral vascular disease, unspecified Category: Medical Plan 74 year old to establish Focus on diabetes today which is uncontrolled Will add mounjaro glipizide. Will stay on current doses of insulin, metformin Close follow up in one month Medications: New Mounjaro (tirzepatide) for 4 weeks 2.5 mg (0.5 mL) subcut QWEEK 2 mL 1RF NS pioglitazone 30 mg PO DAILY 90 tabs 3RF Changed From insulin glargine (Basaglar KwikPen U-100 Insulin) 20 units (0.2 mL) subcut BEDTIME 30 days 6 mL 0RF E11.9 - Type 2 diabetes mellitus without complications To Basaglar KwikPen U-100 Insulin (insulin glargine) 60 units (0.6 mL) subcut BEDTIME 54 mL 3RF 90 days NS E11.9 - Type 2 diabetes mellitus without complications From insulin lispro (Humalog U-100 Insulin) Less than 110 (units): 0 111 to 150 - units: 0 151 to 200 - units: 2 201 to 250 - units:4 251 to 300 - units:6 301 to 350 - units: 8 350 - units:10 1 mL 0RF E11.9 - Type 2 diabetes mellitus without complications To insulin lispro (Humalog U-100 Insulin) Less than 110 (units): 2 111 to 150 - units: 4 151 to 200 - units: 6 201 to 250 - units:8 251 to 300 - units:10 301 to 350 - units: 12 >350 - units:14 45 mL 3RF E11.9 - Type 2 diabetes mellitus without complications Refilled sildenafil Take 30 minutes prior to sexual activity. 50 mg PO DIRECTED 14 tabs 3RF
--- OUTSIDE RECORDS SUMMARY | 2024-07-20 08:55 | XMS_ITS | Patient Health Record ---
[facility] Address [address] [place] [address] Care Team Providers Care Labor Union Business Representative Name Role Phone Juanito Jalloh MD Primary Care Provider Zafar Mckeon Unavailable [phone] Allergies No Known Allergies Reason For Referral [...] Problem Status W/U Status Risk Notes Problem Type 2 diabetes mellitus with diabetic polyneuropathy (E11.42) Active confirmed Problem Polyneuropathy due to diabetes mellitus type I (384821622) Type 1 diabetes mellitus with diabetic polyneuropathy (E10.42) Active confirmed Plan Of Treatment Pending Test Test Name Order Date X ray : Foot, left 3V 12/18/2019 99705-OWFT SKIN LESIONS, 2 TO 4 02/07/20 20 18032-QOFL SKIN LESIONS, 2 TO 4 05/24/19 21 41023-IQJI SKIN LESIONS, 2 TO 4 08/23/19 21 J3091-OOSDUWWD DYSTROPHIC NAILS ANY # V1131-WCKPQLFM DYSTROPHIC NAILS ANY # M4959-GEQGOFAA DYSTROPHIC NAILS ANY # Insurance Providers Payer Name Payer Address Payer Phone Subscriber Number Group Number Insured Name Patient Relationship to Insured Coverage Start Date Coverage End Date Medicare National Govt Svcs Inc [address] [place] [address] [id number] Rene Saxena Self - patient is the insured [facility] [address] [place] [address] [id number] Rene Saxena Self - patient is [...]
--- OUTSIDE RECORDS SUMMARY | 2024-07-20 08:55 | XMS_ITS | Patient Health Record ---
Author Organization [facility] Address [address] [place] [address] Care Team Providers Care Stock Receiver Name Role Phone Juanito Jalloh MD Primary [...] Problem Status W/U Status Risk Notes Problem 959873235 Colon cancer screening (Z12.11) Active confirmed Problem 01208998 Rectal bleeding (K62.5) Active confirmed Problem Personal history of colonic polyps (Z86.010) Active confirmed Problem 862281971 senior care (current) use of antithrombotics /antiplatelets (Z79.02) Active confirmed Problem 334445692 Long-term use of aspirin therapy (Z79.82) Active confirmed Plan Of Treatment Future Test Test Name Order Date COLONOSCOPY 09/14/2013 COLONOSCOPY 10/25/2019 COLONOSCOPY 10/26/2022 Insurance Providers Payer Name Payer Address Payer Phone Subscriber Number Group Number Insured Name Patient Relationship to Insured Coverage Start Date Coverage End Date MEDICARE OF [place] [address] [place] [address] [phone] [id number] [employer] B[employer]OCK Self - patient is the insured [facility] [address] [place] [phone] [id number] [employer] ABBCOCK Self - patient is the insured Medical [...]
== END 2024-07-20 09:23 | disposition home or self-care (01) ==
LOC: HO.HMCHD 08:44
PROVIDERS: PCP Internal Medicine; Visit Provider Internal Medicine
DX: E11.65 Type 2 diabetes mellitus with hyperglycemia (principal); Z79.4 Long term (current) use of insulin; J44.9 Chronic obstructive pulmonary disease, unspecified; I73.9 Peripheral vascular disease, unspecified

== ENCOUNTER → 2024-07-20 08:44 | Outpatient (BNVA) | payer MEDICARE, OTHER, SELFPAY | PROVIDERS: PCP Internal Medicine; Visit Provider Internal Medicine | DX: E11.65 Type 2 diabetes mellitus with hyperglycemia (principal); J44.9 Chronic obstructive pulmonary disease, unspecified; I73.9 Peripheral vascular disease, unspecified; I25.10 Atherosclerotic heart disease of native coronary artery without angina pectoris; I48.0 Paroxysmal atrial fibrillation; I10 Essential (primary) hypertension; N40.0 Benign prostatic hyperplasia without lower urinary tract symptoms; Z79.01 Long term (current) use of anticoagulants; Z79.4 Long term (current) use of insulin; Z79.84 Long term (current) use of oral hypoglycemic drugs | CPT/HCPCS: 96127; 99202 ==

== ENCOUNTER 2024-07-25 09:19 | Outpatient (AMB) | payer MEDICARE, OTHER, SELFPAY ==
--- NOTE | 2024-07-25 09:24 | MHC.OFFVIS ---
Vital Signs 07/25/24 09:25 Height 5 ft 10 in Weight 231 lb 7.766 oz BMI 33.2 BP 130/64 Blood Pressure Location Lt brachial Position Sitting Pulse 87 Pulse Source Pulse Oximeter Pulse Oximetry (%) 94 Oxygen Delivery Method Room Air Intake Visit Reasons: COPD Intake Note: pt is here for follow up and states he is feeling well Surgery Teacher Required: No Allergies No Known Allergies Allergy (Verified 07/25/24 09:42) Medication List - Last Reconciled 07/25/24 by Sangita Naidu MD Admelog SoloStar U-100 Insulin (insulin lispro) 1 sliding scale dose subcut USEASDIRECTD NS albuterol sulfate 90 mcg/actuation 2 puffs inhalation QID PRN apixaban (Eliquis) 2.5 mg PO BID 90 days aspirin (Adult Low Dose Aspirin) 81 mg PO DAILY Basaglar KwikPen U-100 Insulin (insulin glargine) 60 units (0.6 mL) subcut BEDTIME 90 days NS blood sugar diagnostic As directed Breo Ellipta 200-25 mcg/dose (fluticasone furoate-vilanterol) 1 inh inhalation DAILY NS carvedilol (Coreg) 6.25 mg PO BID cilostazol 100 mg PO ONCE empagliflozin (Jardiance) 10 mg PO DAILY fenofibrate 160 mg PO DAILY finasteride 5 mg PO DAILY 90 days gabapentin 300 mg PO BID glipizide ER 5 mg PO DAILY insulin lispro (Humalog U-100 Insulin) Less than 110 (units): 2 111 to 150 - units: 4 151 to 200 - units: 6 201 to 250 - units:8 251 to 300 - units:10 301 to 350 - units: 12 >350 - units:14 ipratropium-albuterol 0.5 mg-3 mg(2.5 mg base)/3 mL 3 mL inhalation QID PRN 30 days lisinopril 5 mg PO DAILY metformin ER 1 tab PO BIDWM montelukast 10 mg PO DAILY Mounjaro (tirzepatide) 2.5 mg (0.5 mL) subcut QWEEK NS pen needle, diabetic As directed pioglitazone 30 mg PO DAILY sildenafil 50 mg PO DIRECTED simvastatin 20 mg PO BEDTIME Do you need a note to return to daycare/school/sports/work: No HPI HPI COPD: Details: 74 years old very pleasant gentleman is here for his 6 months follow-up for COPD. Has remained very stable, luckily has had no respiratory infection. He uses Breo 200-25 1 inhalation daily and needs to use albuterol only about once a week especially when he goes out for groceries. He is relatively inactive and does not walk much because of his arthritis. He has put on 3 lb of weight in the last 6 months.( winter effect) Denies any cough wheezing or expectoration. Had his LDCT in May 2024 and it was benign. [facility] Medical History Personal history of nicotine dependence Obesity (BMI 30-39.9) COPD (chronic obstructive pulmonary disease) Bronchitis Femoral-popliteal bypass graft occlusion (~01/2020) PVD (peripheral vascular disease) Tubular adenoma of colon (~2002) Hyperlipidemia HTN (hypertension) DM2 (diabetes mellitus, type 2) PAD (peripheral artery disease) Surgical History History of femoropopliteal bypass (~2019) History of laryngoscopy (~2003) History of vasectomy (~1996) History of colonoscopy (~02/10/23) History of laparoscopic cholecystectomy (~2006) History of tonsillectomy History of femoral angiogram (~2018) Family History Father No problems noted. Mother No problems noted. Social History Household Members: Children Housing: House Comment: sleeping Patient Tobacco Use Status: Former Tobacco user Years Smoked: 56 e-Cigarette/Vaping Use: Former Use service: No Current occupational status: retired Cognitive needs: No Hearing needs: No Vision needs: No Review of Systems Const All systems reviewed & are unremarkable except as noted in HPI and below Eyes Reports no additional complaints ENT Reports nasal congestion (Mild off and on ) Card Denies chest pain, Denies irregular heart rhythm and Denies leg edema Resp Reports as per HPI GI Reports no additional complaints Reports erectile dysfunction Musc Reports no additional complaints Skin/Breast Reports system reviewed and no additional complaints, except as documented Neuro Reports no additional complaints Psych Reports no additional complaints Physical Exam Vital Signs: Last Vital Signs Pulse 87 07/25/24 09:25 BP 130/64 07/25/24 09:25 Pulse Ox 94 07/25/24 09:25 Oxygen Delivery Method Room Air 07/25/24 09:25 BMI result Body Mass Index 33.2 Const General: comfortable, no acute distress, alert and awake Orientation/consciousness: patient oriented x3 HEENT Head: Yes normal to inspection General nose exam: No nasal polyps present and No nasal discharge present Face and sinus: Yes sinuses nontender Mouth: oropharynx normal Throat: Yes posterior oropharynx normal Eyes General: appearance normal, both eyes and all related structures Neck Neck: Yes normal visual inspection, Yes no lymphadenopathy, Yes trachea midline and Yes no JVD Thyroid: Thyroid normal Chest Chest palpation & inspection: normal inspection of the chest, normal palpation of entire chest wall and no tenderness Resp Other: Percussion note resonant, breath sounds are slightly distant with prolonged expiratory phase. But no audible wheezes or rhonchi. Cardio Palpation: normal PMI Rate: regular rate Rhythm: regular rhythm Heart sounds: no gallops and no murmurs GI Palpation (GI): Soft to palpation, nontender, No hepatosplenomegaly present and no masses Auscultation: normal bowel sounds Back/Spine/Pelvis Thoracic/Lumbar Spine: thoracic and lumbar spine normal to inspection Skin General skin exam: no rashes or lesions noted Neuro General: patient oriented x3 and no focal motor deficits Cranial nerves: Yes CN's II-XII intact bilaterally Extrem General: Yes normal to inspection, Yes no clubbing, cyanosis or edema, Yes no calf tenderness and Yes other (Legs are thin, he has no palpable peripheral pulses.) Psych Appearance: grossly normal Speech and movement: Normal speech and movement present Results Reviewed Results Reviewed: LDCT May 2024, benign category 2 Assessment & Plan Assessment & Plan (1) Personal history of nicotine dependence: Comment: (Former smoker - 56pyh, quit ~2017) Code(s): Z87.891 - Personal history of nicotine dependence Category: Medical Plan: He has no urge to go back to smoking. Gets annual LDCT, last 1 in May, benign. (2) COPD (chronic obstructive pulmonary disease): Comment: He has chronic obstructive pulmonary disease related to his previous smoker. Remains very stable, No acute exacerbations. Code(s): J44.9 - Chronic obstructive pulmonary disease, unspecified Category: Medical Qualifiers: COPD type: unspecified COPD Qualified Code(s): J44.9 - Chronic obstructive pulmonary disease, unspecified Plan: Continue to use Breo 200-25 1 inhalation daily. Albuterol HFA 1 or 2 puffs Q 6 hours but only p.r.n. Coding Level of Care Code Est Pt Level 3 (62805) Diagnoses Personal history of nicotine dependence Z87.891 Chronic obstructive pulmonary disease, unspecified COPD type J44.9 COPD type: unspecified COPD
[2024-07-25 09:25] VITALS: BP 130/64; PULSE 87; O2SAT 94; BMI 33.2
--- OUTSIDE RECORDS SUMMARY | 2024-07-25 09:53 | XMS_ITS | Patient Health Record ---
Author Organization [facility] Address [address] [place] [address] Care Team Providers Care Rental Clerk Name Role Phone Juanito Jalloh MD [...] 300 MG TAKE 1 CAPSULE BY MO [facility] TWICE A DAY Oral for [...] Problem Status W/U Status Risk Notes Problem 181538707 Colon cancer screening (Z12.11) Active confirmed Problem 46587335 Rectal bleeding (K62.5) Active confirmed Problem Personal history of colonic polyps (Z86.010) Active confirmed Problem 981510840 alf (current) use of antithrombotics /antiplatelets (Z79.02) Active confirmed Problem 053469476 Long-term use of aspirin therapy (Z79.82) Active confirmed Plan Of Treatment Future Test Test Name Order Date COLONOSCOPY 09/14/2013 COLONOSCOPY 10/25/2019 COLONOSCOPY 10/26/2022 Insurance Providers Payer Name Payer Address Payer Phone Subscriber Number Group Number Insured Name Patient Relationship to Insured Coverage Start Date Coverage End Date MEDICARE OF [place] [address] [place] [address] [id number] [employer] Self - patient is the insured [facility] [address] [place] [phone] [id number] [employer] Self - patient is the [...]
== END 2024-07-25 09:43 | disposition home or self-care (01) ==
LOC: HO.HPS 09:20
PROVIDERS: PCP Internal Medicine; Visit Provider Internal Medicine
DX: Z87.891 Personal history of nicotine dependence (principal); J44.9 Chronic obstructive pulmonary disease, unspecified
CPT/HCPCS: 99213

== ENCOUNTER → 2024-07-25 09:19 | Outpatient (BNVA) | payer MEDICARE, OTHER, SELFPAY | PROVIDERS: PCP Internal Medicine; Visit Provider Internal Medicine | DX: J44.9 Chronic obstructive pulmonary disease, unspecified (principal); Z87.891 Personal history of nicotine dependence | CPT/HCPCS: 99212 ==

== ENCOUNTER 2024-08-15 09:21 | Outpatient (REF) | payer MEDICARE, OTHER, SELFPAY ==
[2024-08-15 10:41] LABS: Prostate Specific Antigen 1.65 ng/mL (<0.05-4.0)
== END 2024-08-15 09:22 | disposition home or self-care (01) ==
LOC: HO.10HDL 09:21
PROVIDERS: Visit Provider Nurse Practitioner Family
DX: N40.0 Benign prostatic hyperplasia without lower urinary tract symptoms (principal); Z12.5 Encounter for screening for malignant neoplasm of prostate
CPT/HCPCS: 36415; 84153

== ENCOUNTER 2024-08-17 08:17 | Outpatient (AMB) | payer MEDICARE, OTHER, SELFPAY ==
--- NOTE | 2024-08-17 08:17 | A.OFFVIS_ITS ---
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 Income Required: No Accompanied by: Self / Same As Patient Allergies No Known Allergies Allergy (Verified 08/17/24 08:48) Medication List - Last Reconciled 08/17/24 by FAHAD Jimenes Admelog SoloStar U-100 Insulin (insulin lispro) 1 sliding scale dose subcut USEASDIRECTD NS albuterol sulfate 90 mcg/actuation 2 puffs inhalation QID PRN apixaban (Eliquis) 2.5 mg PO BID 90 days aspirin (Adult Low Dose Aspirin) 81 mg PO DAILY Basaglar KwikPen U-100 Insulin (insulin glargine) 60 units (0.6 mL) subcut BEDTIME 90 days NS blood sugar diagnostic As directed Breo Ellipta 200-25 mcg/dose (fluticasone furoate-vilanterol) 1 inh inhalation DAILY NS carvedilol (Coreg) 6.25 mg PO BID cilostazol 100 mg PO ONCE empagliflozin (Jardiance) 10 mg PO DAILY fenofibrate 160 mg PO DAILY finasteride 5 mg PO DAILY 90 days gabapentin 300 mg PO BID glipizide ER 5 mg PO DAILY ipratropium-albuterol 0.5 mg-3 mg(2.5 mg base)/3 mL 3 mL inhalation QID PRN 30 days lisinopril 5 mg PO DAILY metformin ER 1 tab PO BIDWM montelukast 10 mg PO DAILY Mounjaro (tirzepatide) 2.5 mg (0.5 mL) subcut QWEEK NS Novolog FlexPen U-100 Insulin (insulin aspart U-100) Less than 110 (units): 2 111 to 150 - units: 4 151 to 200 - units: 6 201 to 250 - units:8 251 to 300 - units:10 301 to 350 - units: 12 >350 - units:14 NS pen needle, diabetic As directed pen needle, diabetic use 1 needle subcutaneously 4 times a day. pioglitazone 30 mg PO DAILY sildenafil 50 mg PO DIRECTED simvastatin 20 mg PO BEDTIME HPI Comments Details: Rene is a very pleasant 74-year-old male patient of Dr. Jose Olivares. He has a past medical history of nicotine dependence, obesity, COPD, bronchitis, PVD, hyperlipidemia, hypertension, diabetes, and peripheral arterial disease. He presents to the office today for follow-up of his gross hematuria and lower urinary tract symptoms. In discussion with the patient today he reports to be doing and feeling well. He reports having followed up with his new PCP in has been undergoing new treatment for his diabetes. He does report episodes of nocturia 2-3 times per night however endorses to be drinking and eating prior to bed. He otherwise denies urinary urgency, urinary frequency, incontinence, dysuria, foul smelling urine, changes to urinary stream, flank pain, fever, and or chills. He is happy with his current voiding parameters. He denies having had any other bouts of gross hematuria. Previous workup has included an in office cystoscopy 07/22 that noted bladder to be normal, NAD. Unable to obtain urine for urinalysis today as patient unable to void however PVR 86 mL. Previous workup has included a CT KUB 05/22 that noted no hydronephrosis, hydroureter, or calculi seen. Subcentimeter right renal cyst that requires no imaging follow-up recommended per radiology report. The bladder is unremarkable. He does have a previous smoking history 50 pack per day however quit approximately 6 years ago. Recent PSA results reviewed with the patient today as noted and trended below: 01/18 2.1, 12/21 1.9, 08/23 1.6 Reports compliance with finasteride as prescribed. He does report intermittent episodes of right lower quadrant pain that he feels alleviate after bowel movements. He otherwise offers no other issues or concerns at this time. [facility] Medical History Personal history of nicotine dependence Obesity (BMI 30-39.9) COPD (chronic obstructive pulmonary disease) Bronchitis Femoral-popliteal bypass graft occlusion (~01/2020) PVD (peripheral vascular disease) Tubular adenoma of colon (~2002) Hyperlipidemia HTN (hypertension) DM2 (diabetes mellitus, type 2) PAD (peripheral artery disease) Surgical History History of femoropopliteal bypass (~2019) History of laryngoscopy (~2003) History of vasectomy (~1996) History of colonoscopy (~02/10/23) History of laparoscopic cholecystectomy (~2006) History of tonsillectomy History of femoral angiogram (~2018) Family History Father No problems noted. Mother No problems noted. Social History Household Members: Children Housing: House Comment: sleeping Patient Tobacco Use Status: Former Tobacco user Years Smoked: 56 e-Cigarette/Vaping Use: Former Use service: No Current occupational status: retired Cognitive needs: No Hearing needs: No Vision needs: No Review of Systems Const Reports no additional complaints Eyes Reports no additional complaints ENT Reports no additional complaints Card Reports as per HPI Resp Reports as per HPI GI Reports no additional complaints Reports as per HPI Musc Reports no additional complaints Neuro Reports no additional complaints Psych Reports no additional complaints Endo Reports as per HPI Cachorro/Lymph Reports no additional complaints Aller/Immun Reports no additional complaints Physical Exam Const General: cooperative, healthy appearing, comfortable, no acute distress, well developed, alert and awake Nutritional Appearance: overweight Orientation/consciousness: patient oriented x3 Limitations: ambulation with cane HEENT Head: Yes normal to inspection, Yes normocephalic and Yes atraumatic Ears: hearing grossly normal bilaterally Eyes General: appearance normal, both eyes and all related structures Neck Neck: Yes normal visual inspection and Yes trachea midline Chest Chest palpation & inspection: normal inspection of the chest Resp Effort & Inspection: normal respiratory effort and able to speak in complete sentences Cardio Rate: regular rate GI Inspection: Yes normal to inspection General: Yes no CVA tenderness Back/Spine/Pelvis Back: no CVA tenderness Skin General skin exam: no rashes or lesions noted Neuro General: patient oriented x3 Extrem General: Yes normal to inspection Psych Appearance: grossly normal and well kempt Mental Status: mental status grossly normal Speech and movement: Normal speech and movement present and Clear speech present Affect: normal affect Attitude: cooperative Thought process: Normal thought process present Thought content: Normal thought content present Insight: Fair insight present (Psych) Judgement: Fair judgement present (Psych) Office Procedures Post Void Residual Post Residual Void Post Void Residual (PVR): 86 10962-Ghyk Void Residual by ultrasound Assessment & Plan Assessment & Plan (1) Bladder outlet obstruction: Code(s): N32.0 - Bladder-neck obstruction Category: Medical (2) Gross hematuria: Code(s): R31.0 - Gross hematuria Category: Medical Plan Unable to obtain urine for urinalysis as patient unable to void however PVR 86 mL He currently denies any bothersome urinary issues. We did discussed attempting to limit fluids 2-3 hours prior to bed to decrease episodes of nocturia. Continue finasteride however will decrease to 3 times per week. Recent PSA results reviewed with the patient today; as noted above. Will obtain retroperitoneal ultrasound for further assessment evaluation. Follow-up in 3-6 months with imaging to be completed prior; or sooner with any issues, concerns, and or questions. Orders: Orders AMB Post Void Residual by ultrasound Today N39.41 - Urge incontinence US retroperitoneal comp Today N32.0 - Bladder-neck obstruction Patient Instructions: The patient had an opportunity to ask questions regarding the treatment plan. All questions were answered. Physical exam, labs, and imaging were discussed and reviewed in detail. As well as risks, benefits, and discussion of treatment choices. No major barriers to understanding were identified. The patient expressed understanding and agreement with the above treatment plan. The patient was made aware they should contact our office by phone for worsening of their current condition, the appearance of new symptoms, or with any questions or concerns. Compliance is encouraged with any medications and follow up testing that is ordered. It is a privilege to be allowed the opportunity to participate in? your urological care.? Again, if you have any questions or concerns If you have any questions or concerns please do not hesitate to contact me. The office is [phone]. This note is constructed using voice recognition software. While every effort has been made to ensure accuracy industrial education instructor errors may have been included. Yours sincerely, FAHAD Jimenes Coding Level of Care Code Est Pt Level 3 (11310) Complex EM visit Add On G2211 Diagnoses Bladder outlet obstruction N32.0 Gross hematuria R31.0 CPT Codes Post Residual Void - PVR CPT Code: 90510-Bhcf Void Residual by ultrasound ([id number])
--- OUTSIDE RECORDS SUMMARY | 2024-08-17 08:24 | XMS_ITS | Patient Health Record ---
Author Organization [facility] Address [address] [place] [address] Care Team Providers Care Medical Transcriptionist Name Role Phone Juanito Jalloh MD Primary Care Provider Unavaila Quincy Mariscal Jr Unavailable [phone] Quincy Boateng Unavailable Unavailable Allergies No Known Allergies Reason For Referral No Information Medications Medication SIG (Take, Route, Frequency, Duration) Notes Start Date End Date Status Cilostazol 100 MG 1 tablet 30 minutes before or 2 hours after breakfast and dinner Orally Twice a day for 30 day(s) Active Gabapentin 300 MG TAKE 1 CAPSULE BY MO [facility] TWICE A DAY Oral for 90 Active [...] Problem Status W/U Status Risk Notes Problem 541585934 Colon cancer screening (Z12.11) Active confirmed Problem 91335634 Rectal bleeding (K62.5) Active confirmed Problem Personal history of colonic polyps (Z86.010) Active confirmed Problem 465937438 custodial (current) use of antithrombotics /antiplatelets (Z79.02) Active confirmed Problem 353198251 Long-term use of aspirin therapy (Z79.82) Active confirmed Plan Of Treatment Future Test Test Name Order Date COLONOSCOPY 09/14/2013 COLONOSCOPY 10/25/2019 COLONOSCOPY 10/26/2022 Insurance Providers Payer Name Payer Address Payer Phone Subscriber Number Group Number Insured Name Patient Relationship to Insured Coverage Start Date Coverage End Date MEDICARE OF [place] [address] [place] [address] [id number] [employer] Self - patient is the insured [facility] [address] [place] [phone] [id number] [employer] Self - patient is the [...]
== END 2024-08-17 08:52 | disposition home or self-care (01) ==
PROVIDERS: PCP Internal Medicine; Visit Provider Nurse Practitioner Family
DX: N32.0 Bladder-neck obstruction (principal); R31.0 Gross hematuria
CPT/HCPCS: 99213; G2211

== ENCOUNTER → 2024-08-17 08:17 | Outpatient (BNVA) | payer MEDICARE, OTHER, SELFPAY | PROVIDERS: PCP Internal Medicine; Visit Provider Nurse Practitioner Family | DX: N32.0 Bladder-neck obstruction (principal); R31.0 Gross hematuria | CPT/HCPCS: 51798; 99212 ==

== ENCOUNTER 2024-08-18 10:24 | Outpatient (AMB) | payer MEDICARE, OTHER, SELFPAY ==
[2024-08-18 10:10] VITALS: BP 126/68; PULSE 89; TEMP 36.8; O2SAT 95; BMI 32.4
--- NOTE | 2024-08-18 10:10 | A.OFFPC_ITS ---
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 Required: No Accompanied by: Self / Same As Patient Allergies No Known Allergies Allergy (Verified 08/18/24 10:11) Tobacco use date assessed: 08/18/24 Fall risk assessment: No Falls in past year Last assessed Fall Risk: 08/18/24 Dental Screening Dental Screen Date: 08/18/24 Did you have a dental visit in the last 12 months?: Yes Did you have a dental problem in the last 6 months where you did not have access to dental care?: No HPI HPI Comments History of Present Illness Details This is a 74-year-old male with a past medical history of CAD, p afib, PVD on Eliquis, asthma, COPD, hypertension, BPH, DM and ghn-qxtrcnr-elvipkmsz diabetes presenting for follow up. He was seen by PCP in [facility]. DM: metformin 500mg bid, glipizide, humalog, basaglar, jardiance. A1C 10.8 06/06/2024-at last visit placed on pioglitazone, basaglar incleard to 60mg, mounjaro 2.5mg started. He only received the mounjaro ~2 weeks ago. He has decreased appetite and has lost 5 pounds on his home scale. Has been on actos since his last visit. Average glucose has improved from high 200s to 170 over the past 2 weeks. CGM reviewed CV: Follows with vascular. Has not seen cardiology in awhile ROS CONSTITUTIONAL: Denies weight loss, fever and chills. HEENT: Denies changes in vision and hearing. RESPIRATORY: Denies SOB and cough. CV: Denies palpitations and CP GI: Denies abdominal pain, nausea, vomiting and diarrhea. : Denies dysuria and urinary frequency. MSK: Denies new myalgia and joint pain. SKIN: Denies rash and pruritus. NEUROLOGICAL: Denies headache PSYCHIATRIC: Denies recent changes in mood. PHYSICAL EXAM: GENERAL: Alert and oriented x 3. NAD EYES: EOMI. Anicteric. HENT: Moist mucous membranes. No scleral icterus. No cervical lymphadenopathy. LUNGS: Clear to auscultation bilaterally. CARDIOVASCULAR: Regular rate and rhythm. No murmur. No JVD. ABDOMEN: Soft, non-tender +bs EXTREMITIES: No edema. Non-tender. SKIN: No rashes or lesions. Warm. NEUROLOGIC: No focal neurological deficits. CN II-XII grossly intact PSYCHIATRIC: Cooperative. Appropriate mood and affect [facility] Medical History Personal history of nicotine dependence Obesity (BMI 30-39.9) COPD (chronic obstructive pulmonary disease) Bronchitis Femoral-popliteal bypass graft occlusion (~01/2020) PVD (peripheral vascular disease) Tubular adenoma of colon (~2002) Hyperlipidemia HTN (hypertension) DM2 (diabetes mellitus, type 2) PAD (peripheral artery disease) Surgical History History of femoropopliteal bypass (~2019) History of laryngoscopy (~2003) History of vasectomy (~1996) History of colonoscopy (~02/10/23) History of laparoscopic cholecystectomy (~2006) History of tonsillectomy History of femoral angiogram (~2018) Family History Father No problems noted. Mother No problems noted. Social History Household Members: Children Housing: House Comment: sleeping Patient Tobacco Use Status: Former Tobacco user Years Smoked: 56 e-Cigarette/Vaping Use: Former Use service: No Current occupational status: retired Cognitive needs: No Hearing needs: No Vision needs: No Questionnaire PHQ-9 Over the last 2 weeks, how often have you been bothered by any of the following problems? 1. Little interest or pleasure in doing things: not at all 2. Feeling down, depressed, or hopeless: not at all 3. Trouble falling or staying asleep, or sleeping too much: not at all 4. Feeling tired or having little energy: not at all 5. Poor appetite or overeating: not at all 6. Feeling bad about yourself - or that you are a failure or have let yourself or your family down: not at all 7. Trouble concentrating on things, such as reading the newspaper or watching television: not at all 8. Moving or speaking so slowly that other people could have noticed. Or the opposite - being so fidgety or restless that you have been moving around a lot more than usual: not at all 9. Thoughts that you would be better off or of hurting yourself in some way: not at all Total score: 0 Depression Screening Interpretation: Negative Depression Screening Done: Yes 31997 - PHQ-9 Billing: Yes Source: Developed by Drs. Srini Lomeli, Melanie Sylvester, Wes Bustamante and colleagues, with an educational madeleine from [employer]. Thrive Questionnaire Date Thrive assessed: 08/18/24 I am a: Patient Within the past 12 months, did the food you bought not last and you didn't have the money to get more?: Never true Within the past 12 months, did you worry whether your food would run out before you got money to buy more?: Never true Do you have trouble paying for medicines?: No Do you have trouble getting transportation to medical appointments?: No Do you have trouble paying your heating and electricity bill?: No Do you have trouble taking care of your child, family member or friend?: No Do you have trouble with day-to-day activities such as bathing, preparing meals, shopping, managing finances, etc.?: No Are you currently unemployed and looking for a job?: No Are you interested in more education?: No THRIVE Score: 0 AUDIT C Alcohol Use Questionnaire (AUDIT-C) 1. How often do you have a drink containing alcohol?: Never 3. How often do you have six or more drinks on one occasion?: Never Total Score: 0 GALINA-7 AMB Questionnaire GALINA-7 Date GALINA - 7 assessed: 08/18/24 Feeling nervous, anxious, or on edge: 0 = Not at all Not being able to stop or control worryin = Not at all Worrying too much about different things: 0 = Not at all Trouble relaxin = Not at all Being so restless that it is hard to sit still: 0 = Not at all Becoming easily annoyed or irritable: 0 = Not at all Feeling afraid as if something awful might happen: 0 = Not at all Total GALINA-7 score (0-4 normal; 5-9 mild; 10-14 moderate; 15-21 severe): 0 Source: Developed by Drs. Srini Lomeli, Melanie Sylvester, Wes Bustamante and colleagues, with an educational madeleine from [employer]. Physical exam (Primary Care) Vital Signs: Last Vital Signs Temp 98.3 F 08/18/24 10:10 Pulse 89 08/18/24 10:10 BP 126/68 08/18/24 10:10 Pulse Ox 95 08/18/24 10:10 Oxygen Delivery Method Room Air 08/18/24 10:10 BMI result Body Mass Index 32.4 Tobacco/Smoking Status: Tobacco use Status Tobacco use date assessed 08/18/24 08/18/24 10:12 Patient Tobacco Use Status Former Tobacco user 08/18/24 10:12 e-Cigarette/Vaping Use Former Use 08/18/24 10:12 PHQ-9: PHQ-9 Score PHQ-9: Total score 0 08/18/24 10:52 Depression Screening Interpretation: Negative Thrive Assessment: Date of Thrive Assessment Date Thrive assessed 08/18/24 08/18/24 10:12 Coding Level of Care Code Est Pt Level 4 (77951) Complex EM visit Add On G2211 Diagnoses Uncontrolled type 2 diabetes mellitus with hyperglycemia E11.65 Diabetes mellitus type: type 2 Glycemic state: with hyperglycemia Type 2 diabetes mellitus with hyperglycemia, with long-term current use of insulin E11.65; Z79.4 Diabetes mellitus type: type 2 Diabetes mellitus longterm insulin use: with longterm use Diabetes mellitus complication status: with hyperglycemia PAD (peripheral artery disease) I73.9 Additional Codes PHQ-9 - 71112 - PHQ-9 Billing: Yes ([id number]) Assessment & Plan Assessment & Plan (1) Uncontrolled diabetes mellitus: Code(s): E11.65 - Type 2 diabetes mellitus with hyperglycemia Category: Medical Qualifiers: Diabetes mellitus type: type 2 Glycemic state: with hyperglycemia Qualified Code(s): E11.65 - Type 2 diabetes mellitus with hyperglycemia (2) Diabetes: Code(s): E11.9 - Type 2 diabetes mellitus without complications Category: Medical Qualifiers: Diabetes mellitus type: type 2 Diabetes mellitus predatory animal exterminator insulin use: with predatory animal exterminator use Diabetes mellitus complication status: with hyperglycemia Qualified Code(s): E11.65 - Type 2 diabetes mellitus with hyperglycemia; Z79.4 - predatory animal exterminator (current) use of insulin (3) PAD (peripheral artery disease): Code(s): I73.9 - Peripheral vascular disease, unspecified Category: Medical Plan 74 y/o for follow up Improving glycemic control Increase mounjaro to 5mg weekly Return in 4-6 weeks for follow up Refills sent Orders: Orders Hemoglobin A1c 08/18/24 E11.65 - Type 2 diabetes mellitus with hyperglycemia, E66.9 - Obesity, unspecified Comprehensive Met. Panel 08/18/24 E11.65 - Type 2 diabetes mellitus with hyperglycemia, E66.9 - Obesity, unspecified Medications: New Mounjaro (tirzepatide) 5 mg (0.5 mL) subcut QWEEK 2 mL 3RF NS E11.65 - Type 2 diabetes mellitus with hyperglycemia, E66.9 - Obesity, unspecified, Z79.4 - predatory animal exterminator (current) use of insulin Discontinued Mounjaro (tirzepatide) for 4 weeks Discontinued Reason: Doctor's Order 2.5 mg (0.5 mL) subcut QWEEK 2 mL 1RF NS Admelog SoloStar U-100 Insulin (insulin lispro) Three times daily subcutaneous per sliding scale For BG: Less than 110 (units): 2 units 111 to 150 - units: 4 units 151 to 200 - units: 6 units 201 to 250 - units:8 units 251 to 300 - units:10 units 301 to 350 - units: 12 units >350 - units:14 units Discontinued Reason: Doctor's Order 1 sliding scale dose subcut USEASDIRECTD 30 mL 3RF NS E11.65 - Type 2 diabetes mellitus with hyperglycemia
== END 2024-08-18 11:06 | disposition home or self-care (01) ==
LOC: HO.HMCHD 10:25
PROVIDERS: PCP Internal Medicine; Visit Provider Internal Medicine
DX: E11.65 Type 2 diabetes mellitus with hyperglycemia (principal); Z79.4 Long term (current) use of insulin; I73.9 Peripheral vascular disease, unspecified

== ENCOUNTER → 2024-08-18 10:24 | Outpatient (BNVA) | payer MEDICARE, OTHER, SELFPAY | PROVIDERS: PCP Internal Medicine; Visit Provider Internal Medicine | DX: E11.65 Type 2 diabetes mellitus with hyperglycemia (principal); I73.9 Peripheral vascular disease, unspecified; J44.9 Chronic obstructive pulmonary disease, unspecified; I10 Essential (primary) hypertension; I25.10 Atherosclerotic heart disease of native coronary artery without angina pectoris; I48.0 Paroxysmal atrial fibrillation; Z79.01 Long term (current) use of anticoagulants; Z79.4 Long term (current) use of insulin; Z79.84 Long term (current) use of oral hypoglycemic drugs; Z13.31 Encounter for screening for depression; Z13.30 Encounter for screening examination for mental health and behavioral disorders, unspecified | CPT/HCPCS: 96127; 99212 ==

== ENCOUNTER 2024-09-22 08:45 | Outpatient (AMB) | payer MEDICARE, OTHER, SELFPAY ==
--- NOTE | 2024-09-22 08:48 | MHC.PC.OV ---
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 A1C 10.8 06/06/2024. Average glucose has improved from high 200s to 142. CGM reviewed CV: Follows with vascular-PAD. Has not seen cardiology in awhile. Remains on eliquis, coreg, fenofibrate Continues to have leg pain, likely neuropathic and PAD. Current gabapentin 300 bid which he tolerates well ROS see HPI PHYSICAL EXAM: GENERAL: Alert and oriented x 3. NAD EYES: EOMI. Anicteric. HENT: Moist mucous membranes. No scleral icterus. No cervical lymphadenopathy. LUNGS: Clear to auscultation bilaterally. CARDIOVASCULAR: Regular rate and rhythm. No murmur. No JVD. ABDOMEN: Soft, non-tender +bs EXTREMITIES: No edema. Non-tender. SKIN: No rashes or lesions. Warm. NEUROLOGIC: No focal neurological deficits. CN II-XII grossly intact PSYCHIATRIC: Cooperative. Appropriate mood and affect [facility] Medical History Personal history of nicotine dependence Obesity (BMI 30-39.9) COPD (chronic obstructive pulmonary disease) Bronchitis Femoral-popliteal bypass graft occlusion (~01/2020) PVD (peripheral vascular disease) Tubular adenoma of colon (~2002) Hyperlipidemia HTN (hypertension) DM2 (diabetes mellitus, type 2) PAD (peripheral artery disease) Surgical History History of femoropopliteal bypass (~2019) History of laryngoscopy (~2003) History of vasectomy (~1996) History of colonoscopy (~02/10/23) History of laparoscopic cholecystectomy (~2006) History of tonsillectomy History of femoral angiogram (~2018) Family History Father No problems noted. Mother No problems noted. Social History Household Members: Children Housing: House Comment: sleeping Patient Tobacco Use Status: Former Tobacco user Years Smoked: 56 e-Cigarette/Vaping Use: Former Use service: No Current occupational status: retired Cognitive needs: No Hearing needs: No Vision needs: No Questionnaire Thrive Questionnaire Date Thrive assessed: 07/20/24 GALINA-7 AMB Questionnaire GALINA-7 Date GALINA - 7 assessed: 07/20/24 Source: Developed by Drs. Srini Lomeli, Melanie Sylvester, Wes Bustamante and colleagues, with an educational madeleine from [employer]. Physical exam (Primary Care) Vital Signs: Last Vital Signs Temp 97.6 F 09/22/24 08:59 Pulse 96 09/22/24 08:59 Resp 17 09/22/24 08:59 BP 132/64 09/22/24 08:59 Pulse Ox 95 09/22/24 08:59 Tobacco/Smoking Status: Tobacco use Status Tobacco use date assessed 07/20/24 09/22/24 08:51 Patient Tobacco Use Status Former Tobacco user 09/22/24 08:51 e-Cigarette/Vaping Use Former Use 09/22/24 08:51 Thrive Assessment: Date of Thrive Assessment Date Thrive assessed 07/20/24 09/22/24 08:51 Coding Level of Care Code Est Pt Level 4 (36270) Diagnoses Uncontrolled type 2 diabetes mellitus with hyperglycemia E11.65 Diabetes mellitus type: type 2 Glycemic state: with hyperglycemia Assessment & Plan Assessment & Plan (1) Uncontrolled diabetes mellitus: Code(s): E11.65 - Type 2 diabetes mellitus with hyperglycemia Category: Medical Qualifiers: Diabetes mellitus type: type 2 Glycemic state: with hyperglycemia Qualified Code(s): E11.65 - Type 2 diabetes mellitus with hyperglycemia Plan Improving diabetic control. He is due for A1C Continue current medications pending results Leg pain-increase gabapentin up to 600mg tid CV: blood pressure stable on current medications Orders: Orders Hemoglobin A1c 3 Months E11.65 - Type 2 diabetes mellitus with hyperglycemia, I73.9 - Peripheral vascular disease, unspecified Lipid Panel 3 Months E11.65 - Type 2 diabetes mellitus with hyperglycemia, I73.9 - Peripheral vascular disease, unspecified Comprehensive Met. Panel 3 Months E11.65 - Type 2 diabetes mellitus with hyperglycemia, I73.9 - Peripheral vascular disease, unspecified Medications: Changed From gabapentin 300 mg PO BID 180 caps 3RF To gabapentin 600 mg (2 x 300 mg) PO TID 540 caps 3RF
[2024-09-22 08:59] VITALS: BP 132/64; PULSE 96; RESP 17; TEMP 36.4; O2SAT 95
--- OUTSIDE RECORDS SUMMARY | 2024-09-22 08:59 | XMS_ITS | Patient Health Record ---
[facility] [place] Address [address] [place] [address] Care Team Providers Care Senior Linux Unix Administrator Name Role Phone Shubham CERON, Juanito Primary Care Provider Zafar Mckeon Unavailable [phone] Allergies No Known Allergies Reason For Referral No Information Medications Medication SIG (Take, Route, Frequency, Duration) Notes Start Date End Date Status Lisinopril 5 MG Oral; Duration: 90 Active metFORMIN HCl ER 500 MG Oral; Duration: 90 Active glipiZIDE ER 5 MG Oral; Duration: 90 Active Gabapentin 300 MG Oral; Duration: 90 Active Eliquis Active Carvedilol 6.25 MG Oral; Duration: 90 Active Clopidogrel & Aspirin Active Night Splint AFO - L1930 as directed 12/18/2019 Active Physical Therapy . . . 2-3x/week; Durat ion: 3-4 weeks 12/18/2019 Active Simvastatin 20 MG Oral; Duration: 90 Active Low-Dose Aspirin 81 MG 11/13/2019 Active Immunizations Vaccine Route Administration Date Status Comme nts Influenza Unknown 10/31/2019 Administered COVID-19 Moderna Vaccine Unknown 05/23/2020 Administered Second dose-05/15 Social History Tobacco Use: Social History Observation [...] Polyneuropathy due to diabetes mellitus type I (278791009) Type 1 diabetes mellitus with diabetic polyneuropathy (E10.42) Active confirmed Plan Of Treatment Pending Test Test Name Order Date X ray : Foot, left 3V 12/18/2019 [id number] SKIN LESIONS, 2 TO 4 02/07/20 20 05157-LERL SKIN LESIONS, 2 TO 4 05/24/19 21 09698-IBJI SKIN LESIONS, 2 TO 4 08/23/19 21 [id number] DYSTROPHIC NAILS ANY # [id number] DYSTROPHIC NAILS ANY # N3796-[id number] DYSTROPHIC NAILS ANY # Insurance Providers Payer Name Payer Address Payer Phone Subscriber Number Group Number Insured Name Patient Relationship to Insured Coverage Start Date Coverage End Date Medicare National [employer] [address] [place] [address] [id number] Rene Saxena Self - patient is the insured [facility] [address] [place] [address] [phone] [id number] Rene Saxena Self - patient is [...]
--- OUTSIDE RECORDS SUMMARY | 2024-09-22 08:59 | XMS_ITS | Patient Health Record ---
Author Organization [facility] Address [address] [place] [address] Care Team Providers Care Alignment Technician Name Role Phone Shubham (RETIRED) Juanito CERON Primary Care Provide r Unavailable Quincy Boateng Jr Unavailable [phone] Quincy Boaetng Unavailable Unavailable Allergies No Known Allergies Reason For Referral No Information Medications Medication SIG (Take, Route, Frequency, Duration) Notes Start Date End Date Status Cilostazol 100 MG 1 tablet 30 minutes before or 2 hours after breakfast and dinner Orally Twice a day for 30 day(s) Active Gabapentin 300 MG TAKE 1 CAPSULE BY [facility] TWICE A DAY Oral for 90 [...] Problem Status W/U Status Risk Notes Problem 958524865 Colon cancer screening (Z12.11) Active confirmed Problem 12553797 Rectal bleeding (K62.5) Active confirmed Problem History of polyp of colon (situation) (440066746) Personal history of colonic polyps (Z86.010) Active confirmed Problem 295065566 meterman (current) use of antithrombotic s/antiplatelet s (Z79.02) Active confirmed Problem 269432832 Long-term use of aspirin therapy (Z79.82) Active confirmed Plan Of Treatment Future Test Test Name Order Date COLONOSCOPY 09/14/2013 COLONOSCOPY 10/25/2019 COLONOSCOPY 10/26/2022 Insurance Providers Payer Name Payer Address Payer Phone Subscriber Number Group Number Insured Name Patient Relationship to Insured Coverage Start Date Coverage End Date MEDICARE OF [place] [address] [place] [address] [id number] [id number] Self - patient is the insured [facility] [address] [place] [phone] [id number] [id number] Self - patient is the [...]
== END 2024-09-22 09:37 | disposition home or self-care (01) ==
PROVIDERS: PCP Internal Medicine; Visit Provider Internal Medicine
DX: E11.65 Type 2 diabetes mellitus with hyperglycemia (principal)

== ENCOUNTER 2024-09-22 09:25 | Outpatient (REF) | payer MEDICARE, OTHER, SELFPAY ==
[2024-09-22 10:02] LABS: Hemoglobin A1C 201.9227 umol/L; Total Hemoglobin (HGBA1C) 3519.1686 umol/L
[2024-09-22 10:47] LABS: Alanine Aminotransferase 14 U/L (0-40); Albumin Level 4.3 g/dL (3.5-5.0); Alkaline Phosphatase 49 U/L (39-117); Anion Gap 14 (12-20); Aspartate Amino Transferase 18 U/L (5-37); Blood Urea Nitrogen 16 mg/dL (9-16); Calcium 9.2 mg/dL (8.4-10.2); Carbon Dioxide 23 mmol/L (22-29); Chloride 108 mmol/L (96-108); Estimated Glomerular Filt Rate 46; Potassium 3.6 mmol/L (3.3-5.1); Sodium 141 mmol/L (135-145); Total Protein 7.2 g/dL (6.5-8.0)
== END 2024-09-22 09:26 | disposition home or self-care (01) ==
LOC: HO.10HDL 09:25
PROVIDERS: Visit Provider Internal Medicine
DX: E11.65 Type 2 diabetes mellitus with hyperglycemia (principal); I73.9 Peripheral vascular disease, unspecified
CPT/HCPCS: 36415; 80053; 83036; 99212

== ENCOUNTER 2024-12-08 12:35 | Outpatient (REF) | payer MEDICARE, OTHER, SELFPAY ==
--- NOTE | ~2024-12-08 | US_ITS ---
CLINICAL HISTORY: N32.0 - Bladder-neck obstruction US Renal Comparison: None provided Findings: Right kidney normal size and echotexture, 12.4 cm length. Left kidney normal size and echotexture, 11.6 cm length. No collecting system dilatation of either kidney. Normal color Doppler. Bilateral parenchymal Bosniak 1 cysts, largest on the right measuring 5.9 x 5.5 x 5.1 cm. Urinary bladder is unremarkable. Prevoid volume 307 mL. Postvoid volume 16.3 mL. Bilateral ureteral jets are visualized. IMPRESSION: 1. No acute findings. This document has been electronically signed by: Chip Alan MD on 12/10/2024 08:50:59
== END 2024-12-08 12:36 | disposition home or self-care (01) ==
LOC: HO.HMGCX 12:35
PROVIDERS: PCP Internal Medicine; Visit Provider Nurse Practitioner Family
DX: N32.0 Bladder-neck obstruction (principal)
CPT/HCPCS: 76770

== ENCOUNTER → 2024-12-08 13:10 | Outpatient (BNV) | payer MEDICARE, OTHER, SELFPAY | PROVIDERS: PCP Internal Medicine; Visit Provider Specialist | DX: N32.0 Bladder-neck obstruction (principal) | CPT/HCPCS: 76770 ==

== ENCOUNTER 2024-12-18 09:12 | Outpatient (AMB) | payer MEDICARE, OTHER, SELFPAY ==
--- NOTE | 2024-12-18 09:32 | MHC.OFFVIS ---
Intake Visit Reasons: 4m Follow up/ US Intake Note: patient presents today for: 4mo f/u urology medications: finasteride, sildenafil blood thinners: aspirin, eliquis CT done: 12/10/24 today's PVR: 71mls Telegraph Dispatcher Required: No Accompanied by: Self / Same As Patient Allergies No Known Allergies Allergy (Verified 12/18/24 09:34) HPI Comments Details: Rene is a very pleasant 74-year-old male patient of Dr. Jose Olivares. He has a past medical history of nicotine dependence, obesity, COPD, bronchitis, PVD, hyperlipidemia, hypertension, diabetes, and peripheral arterial disease. He presents to the office today for follow-up of his gross hematuria and lower urinary tract symptoms. In discussion with the patient today he reports to be doing and feeling well. He denies any bothersome urinary issues or concerns. He reports compliance with finasteride as prescribed. Recent retroperitoneal ultrasound results reviewed with the patient today 12/23 bilateral kidneys are normal in size and echotexture. Bilateral parenchymal Bosniak 1 cysts, largest on the right measuring 5.9 cm. Urinary bladder is unremarkable. Postvoid bladder volume 16 mL. No acute findings per radiology report. Urine cytologies are as follows: 12/19 & 06/22 Negative for high-grade urothelial carcinoma He does report episodes of nocturia 2-3 times per night however endorses to be drinking and eating prior to bed. He otherwise denies urinary urgency, urinary frequency, incontinence, dysuria, foul smelling urine, changes to urinary stream, flank pain, fever, and or chills. He is happy with his current voiding parameters. He denies having had any other bouts of gross hematuria. Previous workup has included an in office cystoscopy 07/22 that noted bladder to be normal, NAD. Unable to obtain urine for urinalysis today as patient unable to void however PVR 71 mL. Previous workup has included a CT KUB 05/22 that noted no hydronephrosis, hydroureter, or calculi seen. Subcentimeter right renal cyst that requires no imaging follow-up recommended per radiology report. The bladder is unremarkable. He does have a previous smoking history 50 pack per day however quit approximately 6 years ago. Recent PSA results reviewed with the patient today as noted and trended below: 01/18 2.1, 12/21 1.9, 08/23 1.6 He does report intermittent episodes of right lower quadrant pain that he feels alleviate after bowel movements. He otherwise offers no other issues or concerns at this time. [facility] Medical History Personal history of nicotine dependence Obesity (BMI 30-39.9) COPD (chronic obstructive pulmonary disease) Bronchitis Femoral-popliteal bypass graft occlusion (~01/2020) PVD (peripheral vascular disease) Tubular adenoma of colon (~2002) Hyperlipidemia HTN (hypertension) DM2 (diabetes mellitus, type 2) PAD (peripheral artery disease) Surgical History History of femoropopliteal bypass (~2019) History of laryngoscopy (~2003) History of vasectomy (~1996) History of colonoscopy (~02/10/23) History of laparoscopic cholecystectomy (~2006) History of tonsillectomy History of femoral angiogram (~2018) Family History Father No problems noted. Mother No problems noted. Social History Household Members: Children Housing: House Comment: sleeping Patient Tobacco Use Status: Former Tobacco user Years Smoked: 56 e-Cigarette/Vaping Use: Former Use service: No Current occupational status: retired Cognitive needs: No Hearing needs: No Vision needs: No Review of Systems Const Reports no additional complaints Eyes Reports no additional complaints ENT Reports no additional complaints Card Reports as per HPI Resp Reports as per HPI GI Reports no additional complaints Reports as per HPI Musc Reports no additional complaints Neuro Reports no additional complaints Psych Reports no additional complaints Endo Reports as per HPI Cachorro/Lymph Reports no additional complaints Aller/Immun Reports no additional complaints Physical Exam Const General: cooperative, healthy appearing, comfortable, no acute distress, well developed, alert and awake Nutritional Appearance: overweight Orientation/consciousness: patient oriented x3 Limitations: ambulation with cane HEENT Head: Yes normal to inspection, Yes normocephalic and Yes atraumatic Ears: hearing grossly normal bilaterally Eyes General: appearance normal, both eyes and all related structures Neck Neck: Yes normal visual inspection and Yes trachea midline Chest Chest palpation & inspection: normal inspection of the chest Resp Effort & Inspection: normal respiratory effort and able to speak in complete sentences Cardio Rate: regular rate GI Inspection: Yes normal to inspection General: Yes no CVA tenderness Back/Spine/Pelvis Back: no CVA tenderness Skin General skin exam: no rashes or lesions noted Neuro General: patient oriented x3 Extrem General: Yes normal to inspection Psych Appearance: grossly normal and well kempt Mental Status: mental status grossly normal Speech and movement: Normal speech and movement present and Clear speech present Affect: normal affect Attitude: cooperative Thought process: Normal thought process present Thought content: Normal thought content present Insight: Fair insight present (Psych) Judgement: Fair judgement present (Psych) Results Reviewed Results Reviewed: Date of Service: 12/08/24 Procedure(s): US retroperitoneal comp Findings: Right kidney normal size and echotexture, 12.4 cm length. Left kidney normal size and echotexture, 11.6 cm length. No collecting system dilatation of either kidney. Normal color Doppler. Bilateral parenchymal Bosniak 1 cysts, largest on the right measuring 5.9 x 5.5 x 5.1 cm. Urinary bladder is unremarkable. Prevoid volume 307 mL. Postvoid volume 16.3 mL. Bilateral ureteral jets are visualized. IMPRESSION: 1. No acute findings. Assessment & Plan Assessment & Plan (1) Gross hematuria: Code(s): R31.0 - Gross hematuria Category: Medical (2) Bladder outlet obstruction: Code(s): N32.0 - Bladder-neck obstruction Category: Medical Plan Unable to obtain urine for urinalysis as patient unable to void however PVR 71 mL. We discussed recent retroperitoneal ultrasound results; as noted above. All questions were answered. Continue finasteride. He currently denies any bothersome urinary issues or concerns. He reports be happy with current voiding parameters. Will continue with surveillance monitoring. Will obtain PSA in 6 months Follow-up in 6 months with PSA and PVR; or sooner with any issues, concerns, and or questions. Orders: Orders Urine Cytology Today R31.0 - Gross hematuria Prostate Specific Antigen 6 Months N32.0 - Bladder-neck obstruction Patient Instructions: The patient had an opportunity to ask questions regarding the treatment plan. All questions were answered. Physical exam, labs, and imaging were discussed and reviewed in detail. As well as risks, benefits, and discussion of treatment choices. No major barriers to understanding were identified. The patient expressed understanding and agreement with the above treatment plan. The patient was made aware they should contact our office by phone for worsening of their current condition, the appearance of new symptoms, or with any questions or concerns. Compliance is encouraged with any medications and follow up testing that is ordered. It is a privilege to be allowed the opportunity to participate in? your urological care.? Again, if you have any questions or concerns If you have any questions or concerns please do not hesitate to contact me. The office is [phone]. This note is constructed using voice recognition software. While every effort has been made to ensure accuracy sales and marketing assistant errors may have been included. Yours sincerely, FAHAD Jimenes Coding Level of Care Code Est Pt Level 3 (83629) Complex EM visit Add On G2211 Diagnoses Gross hematuria R31.0 Bladder outlet obstruction N32.0
== END 2024-12-18 10:06 | disposition home or self-care (01) ==
LOC: HO.HUSH 09:13
PROVIDERS: PCP Internal Medicine; Visit Provider Nurse Practitioner Family
DX: R31.0 Gross hematuria (principal); N32.0 Bladder-neck obstruction
CPT/HCPCS: 99213; G2211

== ENCOUNTER → 2024-12-18 09:12 | Outpatient (BNVA) | payer MEDICARE, OTHER, SELFPAY | PROVIDERS: PCP Internal Medicine; Visit Provider Nurse Practitioner Family | DX: R31.0 Gross hematuria (principal); N32.0 Bladder-neck obstruction; Z79.82 Long term (current) use of aspirin; Z79.01 Long term (current) use of anticoagulants | CPT/HCPCS: 99212 ==

== ENCOUNTER 2024-12-29 09:29 | Outpatient (AMB) | payer MEDICARE, OTHER, SELFPAY ==
--- NOTE | 2024-12-29 09:40 | A.OFFPC_ITS ---
Vital Signs 12/29/24 09:41 Height 5 ft 10 in Weight 238 lb 8 oz BMI 34.2 BP 138/64 Blood Pressure Location Rt brachial Position Sitting Respiration 14 Pulse 95 Pulse Source Pulse Oximeter Temp 98.6 F Temp Source Oral Pulse Oximetry (%) 93 Oxygen Delivery Method Room Air Intake Visit Reasons: ANY from [address] [facility] [address] Intake Note: Transfer of Care Planning Coordinator Required: No Allergies No Known Allergies Allergy (Verified 12/29/24 09:41) Tobacco use date assessed: 12/29/24 Fall risk assessment: No Falls in past year Last assessed Fall Risk: 12/29/24 Dental Screening Dental Screen Date: 07/20/24 HPI HPI Comments History of Present Illness Details This is a 74-year-old male with a past medical history of CAD, pafib, PVD on Eliquis, asthma, COPD, hypertension, BPH, IDDM presenting for follow up DM: A1C 5.8 from 7.4 from 10.8. metformin 500mg bid, glipizide, humalog, basaglar 60, jardiance, mounjaro 5mg and actos. CGM reviewed-he does have frequent lows 60s-these resolve quickly. Neuropathy-stable on gabapentin CV: on eliquis, coreg, fenofibrate. Follows with vascular-PAD. Has not seen cardiology in awhile. Urologic: Recently saw urology for hematuria. Colonoscopy: 2022-[facility]. Had been regularly getting every 5 years for polyps ROS see HPI PHYSICAL EXAM: GENERAL: Alert and oriented x 3. NAD EYES: EOMI. Anicteric. HENT: Moist mucous membranes. No scleral icterus. No cervical lymphadenopathy. LUNGS: Clear to auscultation bilaterally. CARDIOVASCULAR: Regular rate and rhythm. No murmur. No JVD. ABDOMEN: Soft, non-tender +bs EXTREMITIES: No edema. Non-tender. SKIN: No rashes or lesions. Warm. NEUROLOGIC: No focal neurological deficits. CN II-XII grossly intact PSYCHIATRIC: Cooperative. Appropriate mood and affect [facility] Medical History Personal history of nicotine dependence Obesity (BMI 30-39.9) COPD (chronic obstructive pulmonary disease) Bronchitis Femoral-popliteal bypass graft occlusion (~01/2020) PVD (peripheral vascular disease) Tubular adenoma of colon (~2002) Hyperlipidemia HTN (hypertension) DM2 (diabetes mellitus, type 2) PAD (peripheral artery disease) Surgical History History of femoropopliteal bypass (~2019) History of laryngoscopy (~2003) History of vasectomy (~1996) History of colonoscopy (~02/10/23) History of laparoscopic cholecystectomy (~2006) History of tonsillectomy History of femoral angiogram (~2018) Family History Father No problems noted. Mother No problems noted. Social History Household Members: Children Housing: House Comment: sleeping Patient Tobacco Use Status: Former Tobacco user Years Smoked: 56 e-Cigarette/Vaping Use: Former Use service: No Current occupational status: retired Cognitive needs: No Hearing needs: No Vision needs: No Questionnaire Thrive Questionnaire Date Thrive assessed: 07/20/24 AUDIT C Alcohol Use Questionnaire (AUDIT-C) 1. How often do you have a drink containing alcohol?: Monthly or less 2. How many drinks containing alcohol do you have on a typical day when you are drinking?: 1 or 2 3. How often do you have six or more drinks on one occasion?: Never Total Score: 1 GALINA-7 AMB Questionnaire GALINA-7 Date GALINA - 7 assessed: 07/20/24 Source: Developed by Drs. Srini Lomeli, Melanie Sylvester, Wes Bustamante and colleagues, with an educational madeleine from [employer]. Physical exam (Primary Care) Vital Signs: Last Vital Signs Temp 98.6 F 12/29/24 09:41 Pulse 95 12/29/24 09:41 Resp 14 12/29/24 09:41 BP 138/64 12/29/24 09:41 Pulse Ox 93 12/29/24 09:41 Oxygen Delivery Method Room Air 12/29/24 09:41 BMI result Body Mass Index 34.2 Tobacco/Smoking Status: Tobacco use Status Tobacco use date assessed 12/29/24 12/29/24 09:43 Patient Tobacco Use Status Former Tobacco user 12/29/24 09:43 e-Cigarette/Vaping Use Former Use 12/29/24 09:43 Thrive Assessment: Date of Thrive Assessment Date Thrive assessed 07/20/24 12/29/24 09:43 Results AMB Hemoglobin A1c AMB Hemoglobin A1c 5.8 % Last Edit by Roseanne Lim CMA on 12/29/24 09:54 Results Reviewed Results Reviewed: Laboratory Last Values Hgb A1c (Clinic) 5.8 % (4.0-6.0) 12/29/24 09:49 Coding Level of Care Code Est Pt Level 4 (43082) Complex EM visit Add On G2211 Diagnoses Uncontrolled type 2 diabetes mellitus with hyperglycemia E11.65 Diabetes mellitus type: type 2 Glycemic state: with hyperglycemia Hyperlipidemia, unspecified hyperlipidemia type E78.5 Hyperlipidemia type: unspecified PAD (peripheral artery disease) I73.9 Chronic obstructive pulmonary disease, unspecified COPD type J44.9 COPD type: unspecified COPD Assessment & Plan Assessment & Plan (1) Uncontrolled diabetes mellitus: Code(s): E11.65 - Type 2 diabetes mellitus with hyperglycemia Category: Medical Qualifiers: Diabetes mellitus type: type 2 Glycemic state: with hyperglycemia Qualified Code(s): E11.65 - Type 2 diabetes mellitus with hyperglycemia (2) Hyperlipidemia: Code(s): E78.5 - Hyperlipidemia, unspecified Category: Medical Qualifiers: Hyperlipidemia type: unspecified Qualified Code(s): E78.5 - Hyperlipidemia, unspecified (3) PAD (peripheral artery disease): Code(s): I73.9 - Peripheral vascular disease, unspecified Category: Medical (4) COPD (chronic obstructive pulmonary disease): Comment: He has chronic obstructive pulmonary disease related to his previous smoker. Remains very stable, No acute exacerbations. Code(s): J44.9 - Chronic obstructive pulmonary disease, unspecified Category: Medical Qualifiers: COPD type: unspecified COPD Qualified Code(s): J44.9 - Chronic obstructive pulmonary disease, unspecified Plan Diabetes-well controlled, with some hypoglycemia. He will stop actos and decrease basaglar to 50 units if he continues to be low. COPD is stable Follow up in 3 months or sooner as needed Orders: Orders AMB Hemoglobin A1c 12/29/24 E11.65 - Type 2 diabetes mellitus with hyperglycemia Complete Blood Count Auto Diff 3 Months E11.65 - Type 2 diabetes mellitus with hyperglycemia, Z13.0 - Encounter for screening for diseases of the blood and blood-forming organs and certain disorders involving the immune mechanism, Z79.4 - nursing home (current) use of insulin Comprehensive Met. Panel 3 Months E11.65 - Type 2 diabetes mellitus with hyperglycemia, Z13.0 - Encounter for screening for diseases of the blood and blood-forming organs and certain disorders involving the immune mechanism, Z79.4 - nursing home (current) use of insulin Hemoglobin A1c 3 Months E11. - Type 2 diabetes mellitus with hyperglycemia, Z13.0 - Encounter for screening for diseases of the blood and blood-forming organs and certain disorders involving the immune mechanism, Z79.4 - nursing home (current) use of insulin Microalbumin, Random (w Creat) 3 Months E11.65 - Type 2 diabetes mellitus with hyperglycemia, Z13.0 - Encounter for screening for diseases of the blood and blood-forming organs and certain disorders involving the immune mechanism, Z79.4 - nursing home (current) use of insulin Lipid Panel 3 Months E11.65 - Type 2 diabetes mellitus with hyperglycemia, Z13.0 - Encounter for screening for diseases of the blood and blood-forming organs and certain disorders involving the immune mechanism, Z79.4 - nursing home (current) use of insulin Medications: Discontinued pioglitazone Discontinued Reason: Doctor's Order 30 mg PO DAILY 90 tabs 3RF
[2024-12-29 09:41] VITALS: BP 138/64; PULSE 95; RESP 14; TEMP 37; O2SAT 93; BMI 34.2
== END 2024-12-29 10:20 | disposition home or self-care (01) ==
LOC: HO.HMCFM 09:30
PROVIDERS: PCP Internal Medicine; Visit Provider Internal Medicine
DX: E11.65 Type 2 diabetes mellitus with hyperglycemia (principal); E78.5 Hyperlipidemia, unspecified; I73.9 Peripheral vascular disease, unspecified; J44.9 Chronic obstructive pulmonary disease, unspecified

== ENCOUNTER → 2024-12-29 09:29 | Outpatient (BNVA) | payer MEDICARE, OTHER, SELFPAY | PROVIDERS: PCP Internal Medicine; Visit Provider Internal Medicine | DX: E11.65 Type 2 diabetes mellitus with hyperglycemia (principal); E78.5 Hyperlipidemia, unspecified; I73.9 Peripheral vascular disease, unspecified; J44.9 Chronic obstructive pulmonary disease, unspecified; I25.10 Atherosclerotic heart disease of native coronary artery without angina pectoris; Z79.01 Long term (current) use of anticoagulants; Z79.84 Long term (current) use of oral hypoglycemic drugs; Z79.899 Other long term (current) drug therapy | CPT/HCPCS: 83036; 99212 ==

== ENCOUNTER 2025-01-09 09:45 | Outpatient (AMB) | payer MEDICARE, OTHER, SELFPAY ==
[2025-01-09 10:01] VITALS: BP 110/42; PULSE 85; O2SAT 94; BMI 34.5
--- NOTE | 2025-01-09 10:01 | A.OFFVIS_ITS ---
Vital Signs 01/09/25 10:01 Height 5 ft 10 in Weight 240 lb 4.862 oz BMI 34.5 BP 110/42 L Blood Pressure Location Lt brachial Position Sitting Pulse 85 Pulse Source Pulse Oximeter Pulse Oximetry (%) 94 Oxygen Delivery Method Room Air Intake Visit Reasons: copd Intake Note: pt is here for follow up and states his nebulizer is not working and needs help with replacement, and he is getting short of breath with exerition and carrying things. Waiter/Waitress Bar Required: No Conference Interpreter: Conference Interpreter offered & declined Allergies No Known Allergies Allergy (Verified 01/09/25 10:11) Medication List - Last Reconciled 01/09/25 by Sangita Naidu MD albuterol sulfate 90 mcg/actuation 2 puffs inhalation QID PRN apixaban (Eliquis) 2.5 mg PO BID 90 days aspirin (Adult Low Dose Aspirin) 81 mg PO DAILY Basaglar KwikPen U-100 Insulin (insulin glargine) 60 units (0.6 mL) subcut BEDTIME 90 days NS blood sugar diagnostic As directed Breo Ellipta 200-25 mcg/dose (fluticasone furoate-vilanterol) 1 inh inhalation DAILY NS carvedilol (Coreg) 6.25 mg PO BID cilostazol 100 mg PO ONCE fenofibrate 160 mg PO DAILY finasteride 5 mg PO DAILY 90 days gabapentin 600 mg (2 x 300 mg) PO TID glipizide ER 5 mg PO DAILY ipratropium-albuterol 0.5 mg-3 mg(2.5 mg base)/3 mL 3 mL inhalation QID PRN 30 days Jardiance (empagliflozin) 10 mg PO DAILY NS lisinopril 5 mg PO DAILY metformin ER 1 tab PO BIDWM montelukast 10 mg PO DAILY Mounjaro (tirzepatide) 5 mg (0.5 mL) subcut QWEEK NS Novolog FlexPen U-100 Insulin (insulin aspart U-100) Less than 110 (units): 2 111 to 150 - units: 4 151 to 200 - units: 6 201 to 250 - units:8 251 to 300 - units:10 301 to 350 - units: 12 >350 - units:14 NS pen needle, diabetic As directed pen needle, diabetic use 1 needle subcutaneously 4 times a day. sildenafil 50 mg PO DIRECTED simvastatin 20 mg PO BEDTIME Do you need a note to return to daycare/school/sports/work: No HPI HPI copd: Details: NATO IS 74 YEARS OLD GENTLEMAN WITH SEVERE OBSTRUCTIVE AIRWAY DISORDER. HE CLAIMS THAT HE IS DOING GOOD BEFORE BUT HE GETS SHORT OF BREATH ON MINIMAL EXERTION, AND DOES HAVE FREQUENT BOUTS OF COUGH. HE USED TO DEPEND UPON USING THE IPRATROPIUM-ALBUTEROL SOLUTION IN THE NEBULIZER A FEW TIMES DURING THE DAY. CURRENTLY HIS NEBULIZER IS NOT FUNCTIONING WELL. SO HE HAS MORE FREQUENT BOUTS OF COUGH AND HE FEELS MORE SHORT OF BREATH THAN USUAL. HE IS ALSO DOES NOT USE BREO ONCE A DAY ON A REGULAR BASIS. HE DOES NOT SMOKE ANYMORE. REMAINS MODERATELY OBESE BECAUSE HE IS NOT ABLE TO DO ANY WALKING OR EXERCISE. [facility] Medical History Personal history of nicotine dependence Obesity (BMI 30-39.9) COPD (chronic obstructive pulmonary disease) Bronchitis Femoral-popliteal bypass graft occlusion (~01/2020) PVD (peripheral vascular disease) Tubular adenoma of colon (~2002) Hyperlipidemia HTN (hypertension) DM2 (diabetes mellitus, type 2) PAD (peripheral artery disease) Surgical History History of femoropopliteal bypass (~2019) History of laryngoscopy (~2003) History of vasectomy (~1996) History of colonoscopy (~02/10/23) History of laparoscopic cholecystectomy (~2006) History of tonsillectomy History of femoral angiogram (~2018) Family History Father No problems noted. Mother No problems noted. Social History Household Members: Children Housing: House Comment: sleeping Patient Tobacco Use Status: Former Tobacco user Years Smoked: 56 e-Cigarette/Vaping Use: Former Use service: No Current occupational status: retired Cognitive needs: No Hearing needs: No Vision needs: No Review of Systems Const All systems reviewed & are unremarkable except as noted in HPI and below Eyes Reports no additional complaints ENT Reports nasal congestion (Mild off and on ) Card Denies chest pain, Denies irregular heart rhythm and Denies leg edema Resp Reports as per HPI GI Reports no additional complaints Reports erectile dysfunction Musc Reports no additional complaints Skin/Breast Reports system reviewed and no additional complaints, except as documented Neuro Reports no additional complaints Psych Reports no additional complaints Physical Exam Vital Signs: Last Vital Signs Pulse 85 01/09/25 10:01 BP 110/42 L 01/09/25 10:01 Pulse Ox 94 01/09/25 10:01 Oxygen Delivery Method Room Air 01/09/25 10:01 BMI result Body Mass Index 34.5 Const General: comfortable, no acute distress, alert and awake Orientation/consciousness: patient oriented x3 HEENT Head: Yes normal to inspection General nose exam: No nasal polyps present and No nasal discharge present Face and sinus: Yes sinuses nontender Mouth: oropharynx normal Throat: Yes posterior oropharynx normal Eyes General: appearance normal, both eyes and all related structures Neck Neck: Yes normal visual inspection, Yes no lymphadenopathy, Yes trachea midline and Yes no JVD Thyroid: Thyroid normal Chest Chest palpation & inspection: normal inspection of the chest, normal palpation of entire chest wall and no tenderness Resp Other: Percussion note resonant, breath sounds are slightly distant with prolonged expiratory phase. He does have few scattered expiratory wheezes over the lower lobes. Cardio Palpation: normal PMI Rate: regular rate Rhythm: regular rhythm Heart sounds: no gallops and no murmurs GI Palpation (GI): Soft to palpation, nontender, No hepatosplenomegaly present and no masses Auscultation: normal bowel sounds Back/Spine/Pelvis Thoracic/Lumbar Spine: thoracic and lumbar spine normal to inspection Skin General skin exam: no rashes or lesions noted Neuro General: patient oriented x3 and no focal motor deficits Cranial nerves: Yes CN's II-XII intact bilaterally Extrem General: Yes normal to inspection, Yes no clubbing, cyanosis or edema, Yes no calf tenderness and Yes other (Legs are thin, he has no palpable peripheral pulses.) Psych Appearance: grossly normal Speech and movement: Normal speech and movement present Office Procedures Spirometry Testing Spirometry 03584- Spirometry Results Reviewed Results Reviewed: SPIROMETRY : 07-21-23 01/09/25 FVC 69 % 72 % FEV1 57 % 45 % FEV1/FVC 62 47 FEF 25-75 34 15 % Assessment & Plan Assessment & Plan (1) COPD (chronic obstructive pulmonary disease): Comment: He has chronic obstructive pulmonary disease related to his previous smoker. Remains very stable, No acute exacerbations, but has not been using his meds regularly and, there is increased dyspnea and more frequent cough. SPIROMETRY TODAY fvc=72 % Fev1= 45 % fev1/fvc= 47 . Status declined as compared to previous years, Code(s): J44.9 - Chronic obstructive pulmonary disease, unspecified Category: Medical Qualifiers: COPD type: unspecified COPD Qualified Code(s): J44.9 - Chronic obstructive pulmonary disease, unspecified Plan: He is instructed to use Breo 200-25, 1 inhalation daily regularly Use ipratropium-albuterol solution in the nebulizer Q 6 hours p.r.n. during the daytime and at night if wakes up with wheezing. prescription is renewed Also use montelukast 10 mg daily . (2) Personal history of nicotine dependence: Comment: (Former smoker - 56pyh, quit ~2017), and has not gone back to smoking. Code(s): Z87.891 - Personal history of nicotine dependence Category: Medical Plan: Commended for not going back to smoking. Continue in annual lung screening program. Orders: Orders AMB Spirometry Testing Today Maryam Morales, RT J44.9 - Chronic obstructive pulmonary disease, unspecified Medications: New ipratropium-albuterol 0.5 mg-3 mg(2.5 mg base)/3 mL 3 mL inhalation Q4-6H PRN 360 mL 3RF wheezing 30 days Sangita Naidu MD Coding Level of Care Code Est Pt Level 3 (01103) Diagnoses Chronic obstructive pulmonary disease, unspecified COPD type J44.9 COPD type: unspecified COPD Personal history of nicotine dependence Z87.891 CPT Codes Spirometry - CPT: 89108- Spirometry ([id number])
--- OUTSIDE RECORDS SUMMARY | 2025-01-09 11:01 | XMS_ITS | Patient Health Record ---
[facility] Address [address] [facility] [place] [address] Care Team Providers Care Dye Blender Name Role Phone Juanito Jalloh MD Primary Care Provider Zafar Stark Unavailable [phone] Allergies No Known Allergies Reason For Referral [...] Polyneuropathy due to type 2 diabetes mellitus (105295141) Type 2 diabetes mellitus with diabetic polyneuropathy (E11.42) Active confirmed Problem Polyneuropathy due to diabetes mellitus type I (770301329) Type 1 diabetes mellitus with diabetic polyneuropathy (E10.42) Active confirmed Plan Of Treatment Pending Test Test Name Order Date X ray : Foot, left 3V 12/18/2019 [id number] SKIN LESIONS, 2 TO 4 02/07/20 20 [id number] SKIN LESIONS, 2 TO 4 05/24/19 21 [id number] SKIN LESIONS, 2 TO 4 08/23/19 21 [id number] DYSTROPHIC NAILS ANY # [id number] DYSTROPHIC NAILS ANY # [id number] DYSTROPHIC NAILS ANY # Insurance Providers Payer Name Payer Address Payer Phone Subscriber Number Group Number Insured Name Patient Relationship to Insured Coverage Start Date Coverage End Date Medicare [employer] [address] [place] [address] [id number] Rene Saxena Self - patient is the insured [facility] [address] [place] [address] [id number] Rene Saxena Self - patient is [...]
--- OUTSIDE RECORDS SUMMARY | 2025-01-09 11:01 | XMS_ITS | Patient Health Record ---
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 Name Role Phone Shubham (RETIRED) Juanito CERON Primary Care Provide r Unavailable Quincy Boateng Jr Unavailable Quincy Boateng Unavailable Unavailable Allergies No Known Allergies Reason For Referral No Information Medications Medication SIG (Take, Route, Frequency, Duration) Notes Start Date End Date Status Cilostazol 100 MG 1 tablet 30 minutes before or 2 hours after breakfast and dinner Orally Twice a day; Duration: 30 day(s) Active Gabapentin 300 MG TAKE 1 CAPSULE BY [facility] TWICE A DAY Oral; Duration: 90 Active Albuterol Sulfate HFA 108 (90 Base) MCG/ACT 1 puff as needed Inhalation every 4 hrs Active Montelukast Sodium 10 MG 1 tablet Orally Once a day; Duration: 30 day(s) Active Eliquis 2.5 MG as directed Orally Active Lisinopril 5 MG TK 1 T PO QD Oral; Duration: 90 Active Carvedilol 6.25 MG TK 1 T PO BID Oral; Duration: 90 Active Simvastatin 20 MG TK 1 T PO QHS Oral; Duration: 90 Active metFORMIN HCl ER 500 MG TK 1 T PO QD Ora l; Duration: 90 Active MiraLax (colon prep) 8.3 ounce ((238) grams mixed with Gatorade or Crystal Light orally begin at 5:00 p.m. the day before the procedure; Duration: 1 day 10/26/2022 Active Aspir-81 81 MG 1 tablet Orally Once a day 09/14/2013 Active Fenofibrate 160 MG 1 tablet Orally Once a day; Duration: 30 day(s) Active Clopidogrel Bisulfate 75 MG 1 tablet Ora lly Once a day; Duration: 30 day(s) Active glipiZIDE ER 5 MG TAKE 1 TABLET BY KELLY EVERY DAY Oral; Duration: 90 Active Breo Ellipta 100-25 MCG/ACT 1 [...] Problem Status W/U Status Risk Notes Problem Colon cancer screening (248094523) Colon cancer screening (Z12.11) Active confirmed Problem Rectal bleeding (40082921) Rectal bleeding (K62.5) Active confirmed Problem History of polyp of colon (situation) (312337613) Personal history of colonic polyps (Z86.010) Active confirmed Problem Long-term current use of antithrombotic (546281350485752) 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/antiplatel ets (Z79.02) Active confirmed Problem Long-term current use of antiplatelet drug (520783374602420) Long-term use of aspirin therapy (Z79.82) Active confirmed Plan Of Treatment Future Test Test Name Order Date COLONOSCOPY 09/14/2013 COLONOSCOPY 10/25/2019 COLONOSCOPY 10/26/2022 Insurance Providers Payer Name Payer Address Payer Phone Subscriber Number Group Number Insured Name Patient Relationship to Insured Coverage Start Date Coverage End Date MEDICARE OF [place] [address] [place] [address] [phone] [id number] [id number] Self - patient is the insured [facility] [address] [facility] [phone] [id number] [id number] Self - patient is the [...]
== END 2025-01-09 10:43 | disposition home or self-care (01) ==
PROVIDERS: PCP Internal Medicine; Visit Provider Internal Medicine
DX: J44.9 Chronic obstructive pulmonary disease, unspecified (principal); Z87.891 Personal history of nicotine dependence
CPT/HCPCS: 94010; 99213

== ENCOUNTER → 2025-01-09 09:45 | Outpatient (BNVA) | payer MEDICARE, OTHER, SELFPAY | PROVIDERS: PCP Internal Medicine; Visit Provider Internal Medicine | DX: J44.9 Chronic obstructive pulmonary disease, unspecified (principal); Z87.891 Personal history of nicotine dependence | CPT/HCPCS: 94010; 99212 ==